=== PATIENT | female | born 1940 | race Caucasian/White ===

== ENCOUNTER 2018-02-14 13:01 | Outpatient (CLI) | payer MEDICARE, MEDICAID ==
--- NOTE | 2018-02-14 15:00 | CT ---
CT OF CHEST WITHOUT CONTRAST: Date: 02/14/18 COMPARISON: 08/22/16. HISTORY: COPD and personal history of nicotine dependence. Patient quit smoking 12 years ago. TECHNIQUE: Multiple contiguous axial images were obtained in a CT of the chest without contrast per low dose can [facility] screening protocol. Sagittal and coronal reformats were performed. FINDINGS: Emphysematous changes are seen throughout the lungs. No pulmonary nodules are identified. Scarring is seen in the right lung base. No pneumothorax or pleural effusions are seen. The heart is normal in size. Calcifications are seen in the coronary arteries and aorta. No hilar or mediastinal lymphadenopathy are seen. Degenerative changes are seen in the spine. The visualized subdiaphragmatic structures are unremarkab le. The chest wall soft tissues are unremarkable. IMPRESSION: Lung-RADS Category 1 - Negative. POS: [facility]
== END 2018-02-14 13:02 | disposition home or self-care (01) ==
LOC: CT 13:01
PROVIDERS: ATTEND Internal Medicine
DX: Z87.891 Personal history of nicotine dependence (principal)
CPT/HCPCS: G0297

== ENCOUNTER 2018-02-28 10:18 | Outpatient (CLI) | payer MEDICARE, MEDICAID | END 2018-02-28 10:19 | disposition home or self-care (01) | LOC: BICMAMMO 10:18 | PROVIDERS: ATTEND Internal Medicine | DX: Z12.31 Encounter for screening mammogram for malignant neoplasm of breast (principal); R92.1 Mammographic calcification found on diagnostic imaging of breast | CPT/HCPCS: 77063; 77067 ==

== ENCOUNTER 2018-03-09 16:24 | Inpatient (IN) | payer MEDICARE, MEDICAID ==
[~2018-03-09 16:24] MED LIST: ISOVUE-370 76%-LOCM 1 ML ONE
[2018-03-09] MEDS ORDERED: diphenhydrAMINE 50 MG/ML VIAL ONE (17:24)
[2018-03-09] MEDS ORDERED: Water For Injection,Sterile 20 ML ONE (17:24)
[2018-03-09] MEDS ORDERED: methylPREDNISolone Sod Succ/PF 125 MG/2 ML VIAL ONE (17:24)
[2018-03-09 17:43] LABS: ALT (SGPT) Less than 7 U/L (8-55); AST (SGOT) 14 U/L (5-34); Albumin 3.7 g/dL (3.4-4.8); Alkaline Phosphatase 41 U/L (40-150); Anion Gap 15 mmol/L (10-20); BUN (Urea Nitrogen) 13 mg/dL (9.8-20.1); Bilirubin, Total 0.6 mg/dL (0.2-1.2); Calc. Creatinine Clearance 0 mL/min (70-130); Calcium 8.7 mg/dL (7.8-10.44); Carbon Dioxide 23 mmol/L (23-31); Chloride 103 mmol/L (98-107); Estimated GFR-MDRD 47; Globulin 2.5 g/dL (2.4-3.5); Glucose 120 mg/dL (83-110); Magnesium 1.8 mg/dL (1.6-2.6); Potassium 3.6 mmol/L (3.5-5.1); Protein, Total 6.2 g/dL (6.0-8.3); Sodium 137 mmol/L (136-145)
[2018-03-09] MEDS ORDERED: Famotidine/PF 20 mg/2ml Vial SLOW IVP SCH (17:45)
[2018-03-09 18:06] LABS: Bilirubin Negative (Negative); Blood, Urine Negative (Negative); Clarity CLEAR (Clear); Glucose, Urine (Dipstick) Negative (Negative); Leukocyte Trace (Negative); Nitrite Negative (Negative); Protein, Urine (Dipstick) 30 mg/dL (Neg-Trace); Specific Gravity, Urine 1.015 (1.002-1.036); Urobilinogen 0.2 mg/dL (0.2-1.0); pH, Urine 6.5 (5.0-9.0)
[2018-03-09 18:09] LABS: Bacteria/HPF None Seen HPF (None Seen); Hyaline Casts/LPF 0-3 HYALINE CAST LPF (0-3 Hyaline); Pathc Cast-AUWi Flag 0.72 (0-2.49)
[2018-03-09] MEDS ORDERED: Senokot 8.6 MG TAB PO PRN (18:50)
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
[2018-03-09] MEDS ORDERED: Sodium Chloride 0.9% 1,000 ML IV SCH (19:30)
[2018-03-09] MEDS ORDERED: Azithromycin 500 MG in Sodium Chloride 0.9% 250 ML 250 ML IVPB SCH (19:30)
[2018-03-09 20:03] LABS: CKMB 0.5 ng/mL (0-6.6); Troponin I 0.019 ng/mL (< 0.028)
[2018-03-09] MEDS ORDERED: Heparin 5,000 UNITS/ML VIAL SC SCH (21:00)
[2018-03-09] MEDS: cefTRIAXone\\ROCEPHIN 1 GM in Sodium Chloride 0.9% 100 ML IVPB SCH (22:08)
[2018-03-09] MEDS: Pravastatin Sodium 40 MG TAB PO SCH (22:10)
[2018-03-09] MEDS: hydrALAZINE 25 MG TAB PO SCH (22:10)
[2018-03-09] MEDS: Levothyroxine Sodium 50 MCG TAB PO SCH (22:10)
[2018-03-09] MEDS: Apixaban 5 MG TAB PO SCH (22:10)
[2018-03-09] MEDS: Sotalol HCl 80 MG TAB PO SCH (22:11)
[2018-03-09] MEDS: Azithromycin 500 MG in Sodium Chloride 0.9% 250 ML 250 ML IVPB SCH (23:17)
[2018-03-10 00:03] LABS: CKMB 0.7 ng/mL (0-6.6)
[2018-03-10] MEDS: Acetaminophen 325 MG TAB PO PRN ×2 (01:10→23:02)
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
[2018-03-10 05:11] LABS: #Lymphocytes 0.6 thou/uL (1.20-3.40); #Monocytes 0.2 thou/uL (0.11-0.59); #Neutrophils 5.7 thou/uL (1.40-6.50); %Basophils 0.2 % (0.0-1.0); %Eosinophils 0.2 % (0.0-10.0); %Lymphocytes 8.6 % (21.0-51.0); %Monocytes 2.4 % (0.0-10.0); %Neutrophils 88.6 % (42.0-75.0); Hemoglobin 13.5 g/dL (12.0-16.0); Mean Corpuscular HGB CONC 32.5 g/dL (32.0-36.0); Mean Corpuscular Hemoglobin 32.5 pg (27.0-31.0); Mean Platelet Volume 8.6 fL (7.4-10.4); Platelet Count 122 thou/uL (130-400); RBC Distribution Width 11.4 % (11.5-14.5); Red Blood Cell (RBC) Count 4.17 mill/uL (4.20-5.40); White Blood Cell (WBC) Count 6.4 thou/uL (4.8-10.8)
[2018-03-10 05:40] LABS: Anion Gap 14 mmol/L (10-20); BUN (Urea Nitrogen) 14 mg/dL (9.8-20.1); Calc. Creatinine Clearance 41 mL/min (70-130); Calcium 8.8 mg/dL (7.8-10.44); Carbon Dioxide 22 mmol/L (23-31); Chloride 104 mmol/L (98-107); Estimated GFR-MDRD 51; Glucose 173 mg/dL (83-110); Potassium 3.1 mmol/L (3.5-5.1); Sodium 137 mmol/L (136-145)
[2018-03-10] MEDS: Aspirin 81 mg Enteric Coated Tablet PO SCH (09:40)
[2018-03-10] MEDS: Apixaban 5 MG TAB PO SCH ×2 (09:40→19:52)
[2018-03-10] MEDS: hydrALAZINE 25 MG TAB PO SCH ×3 (09:40→19:52)
[2018-03-10] MEDS: Famotidine 20 MG TAB PO SCH (09:41)
[2018-03-10] MEDS ORDERED: Potassium Chloride 20 MEQ TAB PO SCH (09:45)
[2018-03-10] MEDS: Sotalol HCl 80 MG TAB PO SCH ×2 (10:50→19:48)
--- NOTE | 2018-03-10 14:46 | PDOC.PN ---
- Subjective Encounter Start Date: 03/10/18 Encounter Start Time: 11:45 Subjective: pt up in chair family at bedside. pt is back to her baseline - Objective Resuscitation Status: Resuscitation Status FULL:Full Resuscitation Vital Signs & Weight: Vital Signs (12 hours) Temp Pulse Resp BP BP Pulse Ox Pulse Ox 03/10/18 14:33 91 16 95 03/10/18 14:19 91 154/77 H 03/10/18 10:50 91 136/75 03/10/18 10:29 91 16 95 03/10/18 09:40 80 136/75 03/10/18 08:35 100 03/10/18 08:00 98.5 F 80 16 95 03/10/18 06:54 94 L 03/10/18 06:48 80 16 94 L 03/10/18 04:20 98.3 F 93 18 112/59 L 93 L Pulse Ox 03/10/18 14:33 03/10/18 14:19 03/10/18 10:50 03/10/18 10:29 03/10/18 09:40 03/10/18 08:35 95 03/10/18 08:00 03/10/18 06:54 03/10/18 06:48 03/10/18 04:20 I&O: 03/09/18 03/10/18 03/11/18 06:59 06:59 06:59 Intake Total 1350 Balance 1350 Result Diagrams: 03/10/18 04:11 03/10/18 04:11 Phys Exam - Physical Examination HEENT: PERRLA, moist MMs, sclera anicteric, TM's clear, oral pharynx no lesions , 2+ tonsils Neck: no nodes, no JVD, supple, full ROM Respiratory: no wheezing, no rales, no rhonchi, wheezing present, clear to auscultation bilateral Cardiovascular: RRR, no significant murmur, no rub, gallop, irregular Gastrointestinal: soft, non-tender, no distention, positive bowel sounds Musculoskeletal: no edema, pulses present, edema present Dx/Plan (1) Metabolic encephalopathy Code(s): G93.41 - METABOLIC ENCEPHALOPATHY Status: Acute (2) Fever Code(s): R50.9 - FEVER, UNSPECIFIED Status: Acute (3) Pneumonia Code(s): J18.9 - PNEUMONIA, UNSPECIFIED ORGANISM Status: Acute - Plan pt feels much better today -: will continue abx -: ?viral etiology -: will await echo if normal will discharge in am * . Review of Systems - Review of Systems ENT: negative: Ear Pain, Ear Discharge, Nose Pain, Nose Discharge, Nose Congestion, Mouth Pain, Mouth Swelling, Throat Pain, Throat Swelling, Other Respiratory: negative: Cough, Dry, Shortness of Breath, Hemoptysis, SOB with Excertion, Pleuritic Pain, Sputum, Wheezing Cardiovascular: negative: chest pain, palpitations, orthopnea, paroxysmal nocturnal dyspnea, edema, light headedness, other Gastrointestinal: negative: Nausea, Vomiting, Abdominal Pain, Diarrhea, Constipation, Melena, Hematochezia, Other Genitourinary: negative: Dysuria, Frequency, Incontinence, Hematuria, Retention , Other - Medications/Allergies Allergies/Adverse Reactions: Allergies Allergy/AdvReac Type Severity Reaction Status Date / Time Iodine and Iodide Containing Allergy Severe SEVERE Verified 01/25/17 13:52 Produc ITCHING shellfish derived Allergy Severe SEVERE Verified 01/25/17 13:52 VOMITING Medications: Current Medications Acetaminophen (Tylenol) 650 mg PO Q4H PRN PRN Reason: Headache/Fever or Pain Last Admin: 03/10/18 01:10 Dose: 650 mg Albuterol/Ipratropium (Duoneb) 3 ml NEB [id number] [facility] Last Admin: 03/10/18 14:33 Dose: 3 ml Apixaban (Eliquis) 5 mg PO BID [facility] Last Admin: 03/10/18 09:40 Dose: 5 mg Aspirin (Ecotrin) 81 mg PO DAILY [facility] Last Admin: 03/10/18 09:40 Dose: 81 mg Famotidine (Pepcid) 20 mg PO DAILY [facility] Last Admin: 03/10/18 09:41 Dose: 20 mg Hydralazine HCl (Apresoline) 25 mg PO TID [facility] Last Admin: 03/10/18 14:19 Dose: 25 mg Ceftriaxone Sodium 1 gm/ (Sodium Chloride) 100 mls @ 200 mls/hr IVPB 1900 [facility] Last Admin: 03/09/18 22:08 Dose: 100 mls Sodium Chloride (Normal Saline 0.9%) 1,000 mls @ 50 mls/hr IV .Q20H [facility] Stop: 03/10/18 15:29 Last Admin: 03/09/18 20:35 Dose: Not Given Azithromycin 500 mg/ Sodium (Chloride) 250 mls @ 250 mls/hr IVPB Q24HR [facility] Last Admin: 03/09/18 23:17 Dose: 250 mls Levothyroxine Sodium (Synthroid) [address] [facility] Last Admin: 03/09/18 22:10 Dose: 50 mcg Pravastatin Sodium (Pravachol) [address] [facility] Last Admin: 03/09/18 22:10 Dose: 40 mg Senna (Senokot) 2 tab PO HSPRN PRN PRN Reason: Constipation Sotalol HCl (Betapace) 80 mg PO BID [facility] Last Admin: 03/10/18 10:50 Dose: 80 mg
[2018-03-10] MEDS: cefTRIAXone\\ROCEPHIN 1 GM in Sodium Chloride 0.9% 100 ML IVPB SCH (19:48)
[2018-03-10] MEDS: Levothyroxine Sodium 50 MCG TAB PO SCH (19:52)
[2018-03-10] MEDS: Pravastatin Sodium 40 MG TAB PO SCH (19:53)
[2018-03-10] MEDS: Azithromycin 500 MG in Sodium Chloride 0.9% 250 ML 250 ML IVPB SCH (23:02)
[2018-03-11] MEDS: Sotalol HCl 80 MG TAB PO SCH (08:08)
[2018-03-11] MEDS: Apixaban 5 MG TAB PO SCH ×2 (08:08→20:37)
[2018-03-11] MEDS: hydrALAZINE 25 MG TAB PO SCH ×3 (08:08→20:37)
[2018-03-11] MEDS: Aspirin 81 mg Enteric Coated Tablet PO SCH (08:08)
[2018-03-11] MEDS: Famotidine 20 MG TAB PO SCH (08:08)
[2018-03-11] MEDS ORDERED: Potassium Chloride 20 MEQ TAB PO SCH (09:30)
[2018-03-11] MEDS: Acetaminophen 325 MG TAB PO PRN ×2 (11:51→20:37)
[2018-03-11] MEDS ORDERED: Sodium Chloride 0.9% 10 ML ONE (18:39)
[2018-03-11] MEDS: cefTRIAXone\\ROCEPHIN 1 GM in Sodium Chloride 0.9% 100 ML IVPB SCH (18:46)
[2018-03-11] MEDS ORDERED: cefTRIAXone\\ROCEPHIN 1 GM, Admixture Fee 1 EACH in Sodium Chloride 0.9% 100 ML IVPB SCH (19:00)
[2018-03-11] MEDS: Pravastatin Sodium 40 MG TAB PO SCH (20:37)
[2018-03-11] MEDS: Levothyroxine Sodium 50 MCG TAB PO SCH (20:37)
--- NOTE | 2018-03-11 21:29 | PDOC.PN ---
- Subjective Encounter Start Date: 03/11/18 Encounter Start Time: 12:30 Subjective: pt up in bed felt weak this am - Objective Resuscitation Status: Resuscitation Status FULL:Full Resuscitation Vital Signs & Weight: Vital Signs (12 hours) Temp Pulse Resp BP BP Pulse Ox 03/11/18 20:37 93 168/98 H 03/11/18 18:35 99 12 03/11/18 16:20 98.3 F 92 19 145/78 H 96 03/11/18 15:00 89 133/88 03/11/18 14:20 70 14 03/11/18 13:00 97.9 F 03/11/18 11:45 101.2 F H 03/11/18 10:38 95 18 92 L Weight Admit Weight 129 lb Weight 129 lb I&O: 03/10/18 03/11/18 03/12/18 06:59 06:59 06:59 Intake Total 1350 940 480 Balance 1350 940 480 Result Diagrams: 03/10/18 04:11 03/10/18 04:11 Phys Exam - Physical Examination HEENT: PERRLA, moist MMs, sclera anicteric, TM's clear, oral pharynx no lesions , 2+ tonsils Neck: no nodes, no JVD, supple, full ROM Respiratory: no wheezing, no rales, no rhonchi, wheezing present, clear to auscultation bilateral Cardiovascular: RRR, no significant murmur, no rub, gallop, irregular Gastrointestinal: soft, non-tender, no distention, positive bowel sounds Dx/Plan (1) Metabolic encephalopathy Code(s): G93.41 - METABOLIC ENCEPHALOPATHY Status: Acute (2) Fever Code(s): R50.9 - FEVER, UNSPECIFIED Status: Acute (3) Pneumonia Code(s): J18.9 - PNEUMONIA, UNSPECIFIED ORGANISM Status: Acute (4) Systolic and diastolic CHF, acute Code(s): I50.41 - ACUTE COMBINED SYSTOLIC AND DIASTOLIC (CONGESTIVE) HRT FAIL Status: Acute (5) Systolic heart failure Code(s): I50.20 - UNSPECIFIED SYSTOLIC (CONGESTIVE) HEART FAILURE Status: Acute - Plan per pt's family pt was confused this am -: she also complained on having weakness all over -: will consult cardiology and transfer her to monitored floor -: She did have a temp of 101 but it is very [place] inspector her room and -: this was a axillary temp since her oral was normal per nursing * . will continue abx for now i do not think this is bacterial infection since her procalcitonin is normal. possible viral. Review of Systems - Review of Systems Constitutional: weakness Respiratory: Cough Cardiovascular: negative: chest pain, palpitations, orthopnea, paroxysmal nocturnal dyspnea, edema, light headedness, other Gastrointestinal: negative: Nausea, Vomiting, Abdominal Pain, Diarrhea, Constipation, Melena, Hematochezia, Other Genitourinary: negative: Dysuria, Frequency, Incontinence, Hematuria, Retention , Other - Medications/Allergies Allergies/Adverse Reactions: Allergies Allergy/AdvReac Type Severity Reaction Status Date / Time Iodine and Iodide Containing Allergy Severe SEVERE Verified 01/25/17 13:52 Produc ITCHING shellfish derived Allergy Severe SEVERE Verified 01/25/17 13:52 VOMITING Medications: Current Medications Acetaminophen (Tylenol) 650 mg PO Q4H PRN PRN Reason: Headache/Fever or Pain Last Admin: 03/11/18 20:37 Dose: 650 mg Albuterol/Ipratropium (Duoneb) 3 ml NEB [id number] [facility] Last Admin: 03/11/18 18:35 Dose: 3 ml Apixaban (Eliquis) 5 mg PO BID [facility] Last Admin: 03/11/18 20:37 Dose: 5 mg Aspirin (Ecotrin) 81 mg PO DAILY [facility] Last Admin: 03/11/18 08:08 Dose: 81 mg Carvedilol (Coreg) 6.25 mg PO BID[facility] Famotidine (Pepcid) 20 mg PO DAILY [facility] Last Admin: 03/11/18 08:08 Dose: 20 mg Hydralazine HCl (Apresoline) 25 mg PO TID [facility] Last Admin: 03/11/18 20:37 Dose: 25 mg Azithromycin 500 mg/ Sodium (Chloride) 250 mls @ 250 mls/hr IVPB Q24HR [facility] Last Admin: 03/10/18 23:02 Dose: 250 mls Ceftriaxone Sodium 1 gm/Miscellaneous Medication 1 each/ Sodium Chloride 100 mls @ 200 mls/hr IVPB 1900 [facility] Last Admin: 03/11/18 18:46 Dose: Not Given Levothyroxine Sodium (Synthroid) 50 mcg PO HS [facility] Last Admin: 03/11/18 20:37 Dose: 50 mcg Pravastatin Sodium (Pravachol) 40 mg PO HS [facility] Last Admin: 03/11/18 20:37 Dose: 40 mg Senna (Senokot) 2 tab PO HSPRN PRN PRN Reason: Constipation
[2018-03-12] MEDS: Acetaminophen 325 MG TAB PO PRN ×2 (00:21→21:39)
[2018-03-12] MEDS: Azithromycin 500 MG in Sodium Chloride 0.9% 250 ML 250 ML IVPB SCH (00:21)
--- NOTE | 2018-03-12 03:20 | CON ---
DATE OF CONSULTATION: 03/11/2018 HISTORY OF PRESENT ILLNESS: Lashonda Eid is a 77-year-old white female, who is followed by Dr. Aldana in the past. In 01/2017, she underwent cardioversion for atrial fibrillation/flutter and has been maintained on sotalol. She was last seen in the office on 03/07/2018. EKG on that day revealed sinus arrhythmia with heart rate of 67 per minute. Echocardiogram in 10/2017, revealed ejection fraction of 50% to 55% with probable diastolic dysfunction, mild left atrial enlargement, mild mitral regurgitation, mild mitral annular calcification, mild tricuspid regurgitation, and mild pulmonic regurgitation. The patient states that she has been having a cough for several weeks and at times productive of green colored sputum. She saw her primary physician on 01/2018 and was prescribed Augmentin. Her family found her to be more confused and not answering the phone on 03/09/2018 and she was taken to the emergency room in [place], and had a fever of 102 degrees. She was transferred here for further evaluation. She does complain of some pleuritic chest pain at times with coughing. PAST MEDICAL HISTORY: History of atrial fibrillation/flutter, hyperlipidemia, hypertension, hypothyroidism, chronic kidney disease, prediabetes, arthritis. OPERATIONS: Brain aneurysm surgery, cataract surgery, and hysterectomy. MEDICATIONS: Eliquis 5 mg b.i.d. (the patient states she has been compliant with this), sotalol 80 mg b.i.d., hydralazine 25 mg t.i.d., pravastatin 40 at bedtime, levothyroxine 50 daily, aspirin 81 daily. ALLERGIES: IODINE which causes pruritus and SHELLFISH. SOCIAL HISTORY: She states she stopped smoking 12 years ago and smoked 10-12 packs per day. She was asked about this multiple times, but continued to state she smoked 10-12 packs per day. She does not drink alcohol. FAMILY HISTORY: Unremarkable. REVIEW OF SYSTEMS: As noted above, otherwise negative. PHYSICAL EXAMINATION: VITAL SIGNS: Blood pressure 145/78, pulse of 99. HEENT: PERRL. NECK: Supple. CHEST: Clear, without rhonchi or wheezing. CARDIOVASCULAR: S1, S2 normal, without any S3 or S4. The rhythm is irregularly irregular. ABDOMEN: Normal bowel sounds without tenderness. EXTREMITIES: Revealed chronic stasis changes, but no edema. NEUROLOGIC: Grossly intact. LABORATORY AND DIAGNOSTIC DATA: EKG revealed probable atrial flutter with heart rate of 97 per minute. Echocardiogram was technically difficult with ejection fraction of 25% to 30%, mildly dilated left atrium, mildly increased left ventricular size, thickened aortic valve leaflets, and mild mitral regurgitation. Hemoglobin 13.5, hematocrit 41.7, white count 6400, platelets 122,000. Sodium 137, potassium 3.1, chloride 104, carbon dioxide 22, BUN 14, creatinine 1.04, glucose 173. TSH is normal. Troponin I is normal. CK-MB is normal. BNP 1034.1. Chest x-ray revealed no acute cardiopulmonary process. Chest CTA revealed no evidence of thromboembolism. There are emphysematous changes. There are calcifications of the coronary arteries and the aorta. IMPRESSION: 1. Probable chronic obstructive pulmonary disease exacerbation with increased sputum productive of green sputum, but no definite infiltrate seen on chest x- ray. She has been febrile up to 102 in [place] and 101.2 here. 2. Recurrence of atrial flutter. She apparently underwent cardioversion in 2016 and had maintained sinus rhythm since that time. 3. Severe left ventricular dysfunction with ejection fraction of 25% to 30%, whereas in the past her ejection fraction has been normal. 4. Former smoker. 5. Chronic obstructive pulmonary disease. 6. Hypertension. 7. Hyperlipidemia. 8. Chronic kidney disease. PLAN: She currently is on Rocephin and Zithromax and receiving DuoNebs. With her severe left ventricular dysfunction, I will discontinue the sotalol instead place her on carvedilol. Amiodarone may need to be added. Eliquis will be continued. We will follow the patient with you. ANGEL
[2018-03-12] MEDS: Apixaban 5 MG TAB PO SCH ×2 (07:59→21:10)
[2018-03-12] MEDS: Aspirin 81 mg Enteric Coated Tablet PO SCH (07:59)
[2018-03-12] MEDS: Famotidine 20 MG TAB PO SCH (07:59)
[2018-03-12] MEDS: hydrALAZINE 25 MG TAB PO SCH ×3 (07:59→21:10)
[2018-03-12] MEDS: Carvedilol 6.25 MG TAB PO SCH ×2 (07:59→17:37)
[2018-03-12] MEDS ORDERED: Furosemide 20 MG/2 ML VIAL SLOW IVP SCH (09:45)
[2018-03-12] MEDS ORDERED: Lisinopril 5 MG TAB PO SCH (09:45)
[2018-03-12] MEDS ORDERED: Lisinopril 10 MG TAB PO SCH (10:00)
--- NOTE | 2018-03-12 11:40 | PQF ---
CLINICAL DOCUMENTATION IMPROVEMENT CLARIFICATION FORM: ICD-10 Updated PLEASE DO AN ADDENDUM TO THE PROGRESS NOTE WITH ANY DOCUMENTATION UPDATES OR ADDITIONS AND CARRY THROUGH TO DC SUMMARY. THANK YOU. DATE: 03/12/18 ATTN: DR. PELAEZ Please exercise your independent, professional judgment in responding to the clarification form. Clinical indicators are provided on the bottom of this form for your review Please check appropriate box(es): [ ] Sepsis due to: (Pna, UTI, gangrenous gall bladder, etc.) Due to: [ ] Device (please specify) [ ] Implant [ ] Graft [ ] Infusion [ x ] SIRS due to non-infectious process (please specify etiology) [ ] with organ dysfunction [ ] without organ dysfunction [ ] Severe sepsis with acute organ dysfunction of: (Examples: respiratory failure, encephalopathy, acute kidney failure, other) [ ] Septic Shock [ ] Localized infection without sepsis [ ] Other diagnosis [ ] Unable to determine In addition, please specify: Present on Admission (POA): [ x] Yes [ ] No [ ] Unable to determine For continuity of documentation, please document condition throughout progress notes and discharge summary. Thank You. CLINICAL INDICATORS - SIGNS / SYMPTOMS / LABS INITIAL TEMP IN ER- 102.9 / 102.3 PULSE 108 / 141 LACTIC ACID 2.6 PER H&P CONFUSION AND LETHARGY PER H&P RISKS: PNEUMONIA TREATMENT: IV VANCOMYCIN (ER) IV FLUIDS (ER) LEVAQUIN (START 03/13) TELEMETRY MONITORING BLOOD AND URINE CULTURES (This form is maintained as a part of the permanent medical record) 2014 [employer]. All Rights Reserved BRENDAN [email or web address] Office: [phone] ANGEL
--- NOTE | 2018-03-12 15:12 | PDOC.PN ---
- Subjective Encounter Start Date: 03/12/18 Encounter Start Time: 10:00 Subjective: pt up in bed feels very sob - Objective Resuscitation Status: Resuscitation Status FULL:Full Resuscitation Vital Signs & Weight: Vital Signs (12 hours) Temp Pulse Resp BP Pulse Ox 03/12/18 11:00 97.9 F 94 18 136/97 H 94 L 03/12/18 09:44 89 14 96 03/12/18 08:01 98.7 F 108 H 18 160/95 H 93 L 03/12/18 08:00 98.7 F 70 18 03/12/18 07:59 81 03/12/18 06:30 81 12 96 03/12/18 04:00 99.0 F 88 16 125/78 92 L Weight Admit Weight 129 lb Weight 120 lb 14.4 oz I&O: 03/11/18 03/12/18 03/13/18 06:59 06:59 06:59 Intake Total 940 830 Output Total 520 Balance 940 310 Result Diagrams: 03/10/18 04:11 03/10/18 04:11 Phys Exam - Physical Examination HEENT: PERRLA, moist MMs, sclera anicteric, TM's clear, oral pharynx no lesions , 2+ tonsils Neck: no nodes, no JVD, supple, full ROM mild rhonchi to bases clears with cough Cardiovascular: RRR, no significant murmur, no rub, gallop, irregular Gastrointestinal: soft, non-tender, no distention, positive bowel sounds Musculoskeletal: no edema, pulses present, edema present Dx/Plan (1) Metabolic encephalopathy Code(s): G93.41 - METABOLIC ENCEPHALOPATHY Status: Acute (2) Fever Code(s): R50.9 - FEVER, UNSPECIFIED Status: Acute (3) Pneumonia Code(s): J18.9 - PNEUMONIA, UNSPECIFIED ORGANISM Status: Acute (4) Systolic and diastolic CHF, acute Code(s): I50.41 - ACUTE COMBINED SYSTOLIC AND DIASTOLIC (CONGESTIVE) HRT FAIL Status: Acute (5) Systolic heart failure Code(s): I50.20 - UNSPECIFIED SYSTOLIC (CONGESTIVE) HEART FAILURE Status: Acute (6) Weight loss Status: Acute - Plan pt still spiked a temp yest however this could be due to URI -: no significant pna, ua negative. pt still has a wet cough. -: will start her on low dose diuretic and heart failure meds -: spoke with her pcp who stated she was going to sent her to gi for weight -: loss. will consult gi. possible viral etiology for her worsening HF? last * . last ef was 50-55% Review of Systems - Review of Systems Constitutional: weakness ENT: negative: Ear Pain, Ear Discharge, Nose Pain, Nose Discharge, Nose Congestion, Mouth Pain, Mouth Swelling, Throat Pain, Throat Swelling, Other Respiratory: negative: Cough, Dry, Shortness of Breath, Hemoptysis, SOB with Excertion, Pleuritic Pain, Sputum, Wheezing Cardiovascular: negative: chest pain, palpitations, orthopnea, paroxysmal nocturnal dyspnea, edema, light headedness, other Gastrointestinal: negative: Nausea, Vomiting, Abdominal Pain, Diarrhea, Constipation, Melena, Hematochezia, Other - Medications/Allergies Allergies/Adverse Reactions: Allergies Allergy/AdvReac Type Severity Reaction Status Date / Time Iodine and Iodide Containing Allergy Severe SEVERE Verified 01/25/17 13:52 Produc ITCHING shellfish derived Allergy Severe SEVERE Verified 01/25/17 13:52 VOMITING Medications: Current Medications Acetaminophen (Tylenol) 650 mg PO Q4H PRN PRN Reason: Headache/Fever or Pain Last Admin: 03/12/18 00:21 Dose: 650 mg Albuterol/Ipratropium (Duoneb) 3 ml NEB Q4H PRN PRN Reason: SOB Apixaban (Eliquis) 5 mg PO BID [facility] Last Admin: 03/12/18 07:59 Dose: 5 mg Aspirin (Ecotrin) 81 mg PO DAILY [facility] Last Admin: 03/12/18 07:59 Dose: 81 mg Carvedilol (Coreg) 6.25 mg PO BID[facility] Last Admin: 03/12/18 07:59 Dose: 6.25 mg Famotidine (Pepcid) 20 mg PO DAILY [facility] Last Admin: 03/12/18 07:59 Dose: 20 mg Hydralazine HCl (Apresoline) 25 mg PO TID [facility] Last Admin: 03/12/18 07:59 Dose: 25 mg Levofloxacin (Levaquin) 500 mg PO 0600 [facility] Levothyroxine Sodium (Synthroid) 50 mcg PO HS [facility] Last Admin: 03/11/18 20:37 Dose: 50 mcg Lisinopril (Zestril) 10 mg PO BID [facility] Pravastatin Sodium (Pravachol) 40 mg PO HS [facility] Last Admin: 03/11/18 20:37 Dose: 40 mg Senna (Senokot) 2 tab PO HSPRN PRN PRN Reason: Constipation Sodium Chloride (Flush - Normal Saline) 10 ml IVF Q12HR [facility] Sodium Chloride (Flush - Normal Saline) 10 ml IVF PRN PRN PRN Reason: Saline Flush
--- NOTE | 2018-03-12 15:52 | PDOC.CTH ---
<Flory Caballero - Last Filed: 03/12/18 15:44> Cardiology Progress Note - Subjective The pt seen and examined. No overnight events. No cardiac complaints. She could follow commands; however, remains confused. - Objective Vital Signs Temp Pulse Resp BP Pulse Ox 03/12/18 15:15 94 03/12/18 11:00 97.9 F 94 18 136/97 H 94 L 03/12/18 09:44 89 14 96 03/12/18 08:01 98.7 F 108 H 18 160/95 H 93 L 03/12/18 08:00 98.7 F 70 18 03/12/18 07:59 81 03/12/18 06:30 81 12 96 03/12/18 04:00 99.0 F 88 16 125/78 92 L Admit Weight 129 lb Weight 120 lb 14.4 oz 03/11/18 03/12/18 03/13/18 06:59 06:59 06:59 Intake Total 940 830 Output Total 520 Balance 940 310 - Physical Examination Lungs: other: (coarses and diminished at bases) Heart: other: (irregular) Extremities: other: (1-2+ pitting edema) - Telemetry Telemetry Rhythm: Aflutter 80-90s - Labs Result Diagrams: 03/10/18 04:11 03/10/18 04:11 Troponin/CKMB CK-MB (CK-2) 0.7 ng/mL (0-6.6) 03/09/18 23:31 Troponin I 0.010 ng/mL (< 0.028) 03/09/18 23:31 - Assessment/Plan 1. Paroxysmal Aflutter - Rate well controlled with Coreg and Sotalol. On Eliquis 5mg BID. Cont. to monitor on tele. 2. New onset of Systolic HF - Echo on 03/11/18 showed EF 25-30% (which EF 50-55 % in 10/2017); On Coreg 3.125mg BID and Lisinopril 10mg BID; cont. to monitor 3. Low grade temp - No evidence of PNA, UA is negative. 4. HTN - stable with current med; cont monitor 5. Hyperlipidemia - on Statin 6. Hypothyroidism - On Levothyroxin 7. CKD - stable MAR reviewed Eho on 03/11/18 showed EF 25-30%, mild dilated LA, mildly LVH, mild TR. Review of Systems - Review of Systems Constitutional: reports: no symptoms reported, see HPI EENTM: reports: no symptoms reported, see HPI Respiratory: reports: no symptoms reported, see HPI Cardiac (ROS): reports: no symptoms reported, see HPI ABD/GI: reports: no symptoms reported, see HPI <Ebony Aldana Shalom - Last Filed: 03/12/18 18:42> Cardiology Progress Note - Objective Vital Signs Temp Pulse Resp BP Pulse Ox 03/12/18 15:15 98.8 F 100 20 135/99 H 98 03/12/18 11:00 97.9 F 94 18 136/97 H 94 L 03/12/18 09:44 89 14 96 03/12/18 08:01 98.7 F 108 H 18 160/95 H 93 L 03/12/18 08:00 98.7 F 70 18 03/12/18 07:59 81 Admit Weight 129 lb Weight 120 lb 14.4 oz 03/11/18 03/12/18 03/13/18 06:59 06:59 06:59 Intake Total 940 830 600 Output Total 520 Balance 940 310 600 - Labs Result Diagrams: 03/10/18 04:11 03/10/18 04:11 Troponin/CKMB CK-MB (CK-2) 0.7 ng/mL (0-6.6) 03/09/18 23:31 Troponin I 0.010 ng/mL (< 0.028) 03/09/18 23:31 - Assessment/Plan Pt. seen and eval. by me. I agree with the A/P by the MINIBUS DRIVER.Consider cardioversion
[2018-03-12] MEDS: Levothyroxine Sodium 50 MCG TAB PO SCH (21:10)
[2018-03-12] MEDS: Lisinopril 10 MG TAB PO SCH (21:10)
[2018-03-12] MEDS: Pravastatin Sodium 40 MG TAB PO SCH (21:11)
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
[2018-03-13 05:59] LABS: Anion Gap 7 mmol/L (10-20); BUN (Urea Nitrogen) 13 mg/dL (9.8-20.1); Calc. Creatinine Clearance 48 mL/min (70-130); Calcium 8.5 mg/dL (7.8-10.44); Carbon Dioxide 32 mmol/L (23-31); Chloride 98 mmol/L (98-107); Estimated GFR-MDRD 67; Glucose 105 mg/dL (83-110); Sodium 134 mmol/L (136-145)
[2018-03-13 06:28] LABS: #Lymphocytes 1.1 thou/uL (1.20-3.40); #Monocytes 0.8 thou/uL (0.11-0.59); #Neutrophils 4.2 thou/uL (1.40-6.50); %Basophils 0.1 % (0.0-1.0); %Eosinophils 0.6 % (0.0-10.0); %Monocytes 12.4 % (0.0-10.0); Hemoglobin 14.1 g/dL (12.0-16.0); Mean Corpuscular HGB CONC 32.5 g/dL (32.0-36.0); Mean Corpuscular Hemoglobin 32.1 pg (27.0-31.0); Mean Corpuscular Volume 98.9 fL (78.0-98.0); Mean Platelet Volume 7.9 fL (7.4-10.4); Platelet Count 153 thou/uL (130-400); Platelet Count 156 thou/uL (130-400); RBC Distribution Width 11.1 % (11.5-14.5); Red Blood Cell (RBC) Count 4.38 mill/uL (4.20-5.40)
[2018-03-13] MEDS: Carvedilol 6.25 MG TAB PO SCH ×2 (08:33→16:49)
[2018-03-13] MEDS: Lisinopril 10 MG TAB PO SCH ×2 (08:33→21:07)
[2018-03-13] MEDS: Famotidine 20 MG TAB PO SCH (08:33)
[2018-03-13] MEDS: Apixaban 5 MG TAB PO SCH ×2 (08:33→21:07)
[2018-03-13] MEDS: hydrALAZINE 25 MG TAB PO SCH ×3 (08:33→21:06)
--- NOTE | 2018-03-13 08:59 | PQF ---
CLINICAL DOCUMENTATION IMPROVEMENT CLARIFICATION FORM: ICD-10 Updated PLEASE DO AN ADDENDUM TO THE PROGRESS NOTE WITH ANY DOCUMENTATION UPDATES OR ADDITIONS AND CARRY THROUGH TO DC SUMMARY. THANK YOU. Date: 03/13/18 ATTN: DR. PELAEZ Please exercise your independent, professional judgment in responding to the clarification form. Clinical indicators are provided on the bottom of this form for your review Please check appropriate box(s): [ ] Protein Calorie Malnutrition: [ ] Mild [ x ] Moderate [ ] Severe [ ] Other Malnutrition (please specify) __ [ ] Underweight without malnutrition [ ] Cachexia [ ] Other diagnosis [ ] Unable to determine In addition, please specify: Present on Admission (POA): [ x ] Yes [ ] No [ ] Unable to determine CLINICAL INDICATORS - SIGNS / SYMPTOMS / LABS DIETARY NOTE 03/11: "KCAL AND G PROTEIN LIKELY NOT MET" " NUTRITION DIAGNOSIS- MALNUTRITION RELATED TO CHRONIC POOR APPETITE / EVIDENCED BY PT NOTES LOW INTAKE AND 11% WT LOSS OVER LAST 2 MONTHS" BMI 21 RISKS: H/O COPD H/O CHF H/O RENAL DISEASE ADVANCED AGE TREATMENT: DIETARY CONSULT GI CONSULT RECOMMENDATIONS FOR NUTRITIONAL SUPPLEMENTS AND CONSIDERATION OF APPETITE STIMULANT Moderate Malnutrition (in acute illness) Energy Intake: <75% of estimated energy requirement for > 7 days Weight Loss: 1-2%/1 week; 5%/ 1 month; 7.5%/3 months Other: mild body fat loss; mild muscle mass loss; mild fluid accumulation; Severe Malnutrition (in acute illness) Energy Intake: < 50% of estimated energy requirement for > 5 days Weight Loss: >1-2%/1 week; >5%/1 month; >7.5%/3 months Other: moderate body fat loss; moderate muscle mass loss; moderate- severe fluid accumulation; measurably reduced apparatus repair mechanic strength Moderate Malnutrition (in chronic illness) Energy Intake: <75% of estimated energy requirement for >1 month Weight Loss: 5%/1 month; 7.5%/3 months; 10%/6 months; 20%/1 year Other: mild body fat loss; mild muscle mass loss; mild fluid accumulation Severe Malnutrition (in chronic illness) Energy Intake: <75% of estimated energy requirement for >1 month Weight Loss: >5%/1 month; >7.5%/3 months; >10%/6 months; >20%/1 year Other: severe body fat loss; severe muscle mass loss; severe fluid accumulation ; measurably reduced apparatus repair mechanic strength (This form is maintained as a part of the permanent medical record) 2014 [employer], [place]. All Rights Reserved BRENDAN [email or web address] Office: [phone] [facility]
[2018-03-13] MEDS: Furosemide 20 MG/2 ML VIAL SLOW IVP SCH (11:32)
[2018-03-13] MEDS: Acetaminophen 325 MG TAB PO PRN (11:33)
[2018-03-13] MEDS ORDERED: Potassium Chloride 20 MEQ TAB PO SCH (12:00)
--- NOTE | 2018-03-13 12:06 | PDOC.CTH ---
<Flory Caballero - Last Filed: 03/13/18 12:02> Cardiology Progress Note - Subjective The pt seen and examined. No overnight events. No cardiac complaints. She is alerted and oriented x4 today. - Objective Vital Signs Temp Pulse Resp BP BP Pulse Ox 03/13/18 11:30 98.6 F 94 18 133/76 96 03/13/18 08:33 89 168/98 H 03/13/18 08:25 97.9 F 92 18 121/71 100 03/13/18 06:05 90 L 03/13/18 06:00 24 H 87 L 03/13/18 03:12 98.1 F 89 16 126/68 94 L 03/13/18 03:10 16 85 L 03/13/18 00:39 95 03/13/18 00:19 97.9 F 102 H 20 110/60 97 Admit Weight 129 lb Weight 119 lb 8 oz 03/12/18 03/13/18 03/14/18 06:59 06:59 06:59 Intake Total 830 1220 Output Total 520 400 Balance 310 820 - Physical Examination General/Neuro: alert & oriented x3 Neck: no JVD present Lungs: other: (diminished at bases) Heart: other: (irregular) Abdomen: soft Extremities: other: (No edema) - Telemetry Telemetry Rhythm: Aflutter 90-100s - Labs Result Diagrams: 03/13/18 04:59 03/13/18 04:59 Troponin/CKMB CK-MB (CK-2) 0.7 ng/mL (0-6.6) 03/09/18 23:31 Troponin I 0.010 ng/mL (< 0.028) 03/09/18 23:31 - Assessment/Plan 1. Paroxysmal Aflutter - Rate well controlled with Coreg and Sotalol. On Eliquis 5mg BID. Possible cardioversion. Cont. to monitor on tele. 2. New onset of Systolic HF - Echo on 03/11/18 showed EF 25-30% (which EF 50-55 % in 10/2017); On Coreg 3.125mg BID and Lisinopril 10mg BID; cont. to monitor 3. Low grade temp - No evidence of PNA, UA is negative. 4. HTN - stable with current med; cont monitor 5. Hyperlipidemia - on Statin 6. Hypothyroidism - On Levothyroxin 7. CKD - stable MAR reviewed Eho on 03/11/18 showed EF 25-30%, mild dilated LA, mildly LVH, mild TR. Review of Systems - Review of Systems Constitutional: reports: no symptoms reported EENTM: reports: no symptoms reported Respiratory: reports: no symptoms reported Cardiac (ROS): reports: no symptoms reported ABD/GI: reports: no symptoms reported : reports: no symptoms reported Musculoskeletal: reports: no symptoms reported Skin: reports: no symptoms reported <Ebony Aldana - Last Filed: 03/13/18 17:34> Cardiology Progress Note - Objective Vital Signs Temp Pulse Pulse Resp BP BP BP 03/13/18 16:30 97.7 F 103 H 18 119/70 03/13/18 13:47 97 125/82 03/13/18 11:30 98.6 F 94 18 133/76 03/13/18 08:33 89 168/98 H 03/13/18 08:25 97.9 F 92 18 121/71 03/13/18 06:05 03/13/18 06:00 24 H Pulse Ox Pulse Ox 03/13/18 16:30 92 L 03/13/18 13:47 95 03/13/18 11:30 96 03/13/18 08:33 03/13/18 08:25 100 03/13/18 06:05 90 L 03/13/18 06:00 87 L Admit Weight 129 lb Weight 119 lb 8 oz 03/12/18 03/13/18 03/14/18 06:59 06:59 06:59 Intake Total 830 1220 Output Total 520 400 Balance 310 820 - Labs Result Diagrams: 03/13/18 04:59 03/13/18 04:59 Troponin/CKMB CK-MB (CK-2) 0.7 ng/mL (0-6.6) 03/09/18 23:31 Troponin I 0.010 ng/mL (< 0.028) 03/09/18 23:31 - Assessment/Plan Pt. seen and eval. by me. I agree with the A/P by the STENOGRAPHIC COURT REPORTER. I will discuss with EP and see if cardioversion vs ablation would be better. She is feeling better each day. Chest: right basilar rales/rhonchi. CV: regular. Monitor : a-flutter.
[2018-03-13 13:00] LABS: ANA Symphony (Qualitative) Negative (Negative); dsDNA IgG Antibody 0.6 IU/mL (<10 Negative)
--- NOTE | 2018-03-13 16:26 | PDOC.PN ---
- Subjective Encounter Start Date: 03/13/18 Encounter Start Time: 12:30 Subjective: pt up in bed no complains - Objective Resuscitation Status: Resuscitation Status DNR:Do Not Resuscitate Vital Signs & Weight: Vital Signs (12 hours) Temp Pulse Resp BP BP Pulse Ox 03/13/18 11:30 98.6 F 94 18 133/76 96 03/13/18 08:33 89 168/98 H 03/13/18 08:25 97.9 F 92 18 121/71 100 03/13/18 06:05 90 L 03/13/18 06:00 24 H 87 L Weight Admit Weight 129 lb Weight 119 lb 8 oz I&O: 03/12/18 03/13/18 03/14/18 06:59 06:59 06:59 Intake Total 830 1220 Output Total 520 400 Balance 310 820 Result Diagrams: 03/13/18 04:59 03/13/18 04:59 Phys Exam - Physical Examination HEENT: PERRLA, moist MMs, sclera anicteric, TM's clear, oral pharynx no lesions , 2+ tonsils Neck: no nodes, no JVD, supple, full ROM Respiratory: no wheezing, no rales, no rhonchi, wheezing present, clear to auscultation bilateral Cardiovascular: RRR, no significant murmur, no rub, gallop, irregular Gastrointestinal: soft, non-tender, no distention, positive bowel sounds Dx/Plan (1) Metabolic encephalopathy Code(s): G93.41 - METABOLIC ENCEPHALOPATHY Status: Acute (2) Fever Code(s): R50.9 - FEVER, UNSPECIFIED Status: Acute (3) Pneumonia Code(s): J18.9 - PNEUMONIA, UNSPECIFIED ORGANISM Status: Acute (4) Systolic and diastolic CHF, acute Code(s): I50.41 - ACUTE COMBINED SYSTOLIC AND DIASTOLIC (CONGESTIVE) HRT FAIL Status: Acute (5) Systolic heart failure Code(s): I50.20 - UNSPECIFIED SYSTOLIC (CONGESTIVE) HEART FAILURE Status: Acute (6) Weight loss Status: Acute - Plan continue abx for now -: pt is afebrile -: pt feels better today. mild steroids added -: called son yest left message * . Review of Systems - Review of Systems ENT: negative: Ear Pain, Ear Discharge, Nose Pain, Nose Discharge, Nose Congestion, Mouth Pain, Mouth Swelling, Throat Pain, Throat Swelling, Other Respiratory: negative: Cough, Dry, Shortness of Breath, Hemoptysis, SOB with Excertion, Pleuritic Pain, Sputum, Wheezing Cardiovascular: negative: chest pain, palpitations, orthopnea, paroxysmal nocturnal dyspnea, edema, light headedness, other Gastrointestinal: negative: Nausea, Vomiting, Abdominal Pain, Diarrhea, Constipation, Melena, Hematochezia, Other - Medications/Allergies Allergies/Adverse Reactions: Allergies Allergy/AdvReac Type Severity Reaction Status Date / Time Iodine and Iodide Containing Allergy Severe SEVERE Verified 01/25/17 13:52 Produc ITCHING shellfish derived Allergy Severe SEVERE Verified 01/25/17 13:52 VOMITING Medications: Current Medications Acetaminophen (Tylenol) 650 mg PO Q4H PRN PRN Reason: Headache/Fever or Pain Last Admin: 03/13/18 11:33 Dose: 650 mg Albuterol/Ipratropium (Duoneb) 3 ml NEB Q4H PRN PRN Reason: SOB Apixaban (Eliquis) 5 mg PO BID [facility] Last Admin: 03/13/18 08:33 Dose: 5 mg Carvedilol (Coreg) 6.25 mg PO BID-WM [facility] Last Admin: 03/13/18 08:33 Dose: 6.25 mg Famotidine (Pepcid) 20 mg PO DAILY [facility] Last Admin: 03/13/18 08:33 Dose: 20 mg Furosemide (Lasix) 20 mg SLOW IVP 1100 [facility] Last Admin: 03/13/18 11:32 Dose: 20 mg Furosemide (Lasix) 40 mg PO DAILY-AC [facility] Stop: 03/17/18 23:59 Furosemide (Lasix) 40 mg PO 1048 [facility] Stop: 03/14/18 12:48 Hydralazine HCl (Apresoline) 25 mg PO TID [facility] Last Admin: 03/13/18 15:32 Dose: 25 mg Levofloxacin (Levaquin) 500 mg PO 0600 [facility] Last Admin: 03/13/18 06:03 Dose: 500 mg Levothyroxine Sodium (Synthroid) 50 mcg PO HS [facility] Last Admin: 03/12/18 21:10 Dose: 50 mcg Lisinopril (Zestril) 10 mg PO BID [facility] Last Admin: 03/13/18 08:33 Dose: 10 mg Pravastatin Sodium (Pravachol) 40 mg PO HS [facility] Last Admin: 03/12/18 21:11 Dose: 40 mg Senna (Senokot) 2 tab PO HSPRN PRN PRN Reason: Constipation Sodium Chloride (Flush - Normal Saline) 10 ml IVF Q12HR [facility] Last Admin: 03/13/18 08:33 Dose: 10 ml Sodium Chloride (Flush - Normal Saline) 10 ml IVF PRN PRN PRN Reason: Saline Flush Last Admin: 03/12/18 21:27 Dose: 10 ml
[2018-03-13] MEDS: Levothyroxine Sodium 50 MCG TAB PO SCH (21:08)
[2018-03-13] MEDS: Pravastatin Sodium 40 MG TAB PO SCH (21:08)
[2018-03-14] MEDS: Carvedilol 6.25 MG TAB PO SCH ×2 (08:34→17:47)
[2018-03-14] MEDS: hydrALAZINE 25 MG TAB PO SCH ×3 (08:35→21:12)
[2018-03-14] MEDS: Lisinopril 10 MG TAB PO SCH ×2 (08:35→21:12)
[2018-03-14] MEDS: Famotidine 20 MG TAB PO SCH (08:35)
[2018-03-14 09:28] LABS: Anion Gap 10 mmol/L (10-20); BUN (Urea Nitrogen) 13 mg/dL (9.8-20.1); Calc. Creatinine Clearance 48 mL/min (70-130); Calcium 8.8 mg/dL (7.8-10.44); Carbon Dioxide 32 mmol/L (23-31); Chloride 97 mmol/L (98-107); Estimated GFR-MDRD 66; Glucose 104 mg/dL (83-110); Potassium 3.3 mmol/L (3.5-5.1); Sodium 136 mmol/L (136-145)
[2018-03-14] MEDS ORDERED: Apixaban 5 MG TAB PO SCH (10:30)
[2018-03-14] MEDS ORDERED: Propofol 1,000 MG/100 ML VIAL IV ONE (10:44)
[2018-03-14] MEDS ORDERED: Furosemide 40 MG TAB PO SCH (10:48)
--- NOTE | 2018-03-14 11:28 | CON ---
DATE OF CONSULTATION: 03/14/2018 ELECTROPHYSIOLOGY CONSULTATION REPORT REFERRING PHYSICIAN: Dr. Aldana HISTORY: I am seeing Ms. Eid at our [facility] telemetry floor as an electrophysiology consult and her problems are: 1. Persistent atrial arrhythmias. A. History of persistent atrial fibrillation requiring cardioversion in 2016 and sotalol suppression, now with recurrence. B. Also, atypical atrial flutter also noted on EKGs. 2. History of preserved LV function in the past, now 25-30% on the current echocardiogram from 08/26/2018. 3. History of chronic kidney disease with some acute exacerbation on admission. 4. Possible chronic obstructive pulmonary disease exacerbation and sputum production. 5. Urinary tract infection. 6. Risk factors include hypertension and hyperlipidemia. ALLERGIES: IODINE CONTAINING PRODUCTS, SHELLFISH. MEDICATIONS AT HOME: Included omega 3 fatty acid, Meloxicam, cholecalciferol, aspirin, hydralazine, sotalol 80 mg twice a day, ranitidine, furosemide, fluvastatin, levothyroxine, cetirizine and apixaban 5 mg twice a day which the patient has been taking regularly. Currently, patient is off sotalol and continued on apixaban, also on Coreg and Lasix for diuresis. SUBJECTIVE: Ms. Eid is somewhat confused. History obtained from her friend at the bedside as well as from the notes. This lady has been admitted with some cough and green colored sputum, also some worsening confusion from [facility]. She also noted to have elevated lactic acid initially, but no definite leukocytosis noted. Some minor signs of UTI as well. She had no dizziness, loss of consciousness, no stroke-like symptoms, no bleeding issues on admission. She was treated with antibiotics for initially assumed pneumonia, although her CT of the chest was not suggestive of that. She was though continued on antibiotics, levofloxacin for assumed chronic obstructive pulmonary disease exacerbation. Her mental status, slightly improved back to baseline, still with mild confusion. She has no PND or orthopnea at this point to suggest fluid overload. No fever, chills or cough. The rest of 12-point system otherwise unremarkable. OBJECTIVE: VITAL SIGNS: Blood pressure is 131/79, heart rate 101, respirations 16, temperature 98.2 degrees Fahrenheit. GENERAL: Alert and oriented woman in no apparent distress. NECK: Supple. Jugular veins not distended. CHEST: Coarse, no fine crackles, no wheezing appreciated. CARDIAC: Heart sounds are irregularly irregular. S1, S2, variable. No murmur or gallop. ABDOMEN: Benign. Bowel sounds positive. EXTREMITIES: Lower extremities without edema, clubbing or cyanosis. DATABASE: EKG was reviewed. Initial EKG reveals a coarse atrial fibrillation/ atypical flutter on presentation at rate of 97 beats per minute. Subsequent EKGs reveals a similarly organized atypical atrial flutter type of picture. The initial QTC is measured to be 513 milliseconds, although somewhat difficult to evaluate due to the flutter waves underlying likely to be none there though. LABORATORY DATA: Sodium 136, potassium 3.3, BUN is 13, creatinine 0.84 today. The initial creatinine was 1.12. Troponin I's are 0.01 on admission on the 7th. AST, ALT is in normal range. TSH is 0.4. Also, in normal range. The chest CT was suggesting emphysema, no evidence of PE. No definite consolidation seen to suggest pneumonia. The echocardiogram reveals LV of 25-30 %, mild dilated left atrium, mild tricuspid regurgitation. Microbiology shows yeast species in the urine. No cultures noted. ASSESSMENT AND PLAN: 1. Ms. Eid is a pleasant 77-year-old woman with history of persistent atrial fibrillation, though with successful suppression of her atrial fibrillation subsequently after cardioversion in 2014 and also continue sotalol therapy and Eliquis for anticoagulation. Previous she had normal LV function, but now on this admission, she was noted to have a marked reduction in her left ventricular function. Her rates are reasonably controlled with Coreg. I was consulted by Dr. Aldana for arrhythmia management options. Regarding her atrial arrhythmias, she seems to be in a coarse atrial fibrillation/atypical atrial flutter rhythm on the most EKGs. I am not convinced this is a typical isthmus-dependent flutter based on the morphology. For this reason, I suspect a simple cavotricuspid ablation likely will not eliminate all her arrhythmias. She likely will still need a suppressive antiarrhythmic medication. The arrhythmia medication choices are somewhat limited. Sotalol would not be unreasonable to be started even despite of her poor LV function. Amiodarone would be also an option, although with her poor pulmonary function with heavy smoking in the past this could potentially put her at risk for significant pulmonary dysfunction if toxicity occurs with amiodarone. I spoke to the son, Dr. Aldana. We agreed to pursue left invasive route at this point with a cardioversion today. 2. Acute exacerbation of heart failure with LV dysfunction: She has worsened LV function hence her atrial flutter with rapid rates as well as the possible infectious component also could contribute to the worsened LV function. No high suspicion for ischemia based on normal troponins. Continue optimization of heart failure management as per Dr. Aldana. If LVEF improves, likely will not need ICD, if remains poor even long-term she might be considered for ICD therapy in the future, although we have not discussed this yet with the family. 3. Oral anticoagulation on full dose Eliquis currently. Renal function is improving and based on her age, is still under 80 years old, it is reasonable to continue full dose Eliquis. 4. History of chronic confusion ever since her intracranial bleed and intracranial shunt placement in the past as per her family, unchanged. 5. Renal insufficiency, now improving. Continue to monitor. Thank you for the consult. Discussed with Dr. Aldana, the family and the nursing staff as well. We will follow with you. ANGEL
[2018-03-14] MEDS: Furosemide 20 MG/2 ML VIAL SLOW IVP SCH (12:00)
[2018-03-14] MEDS ORDERED: PROPOFOL 200 MG/20 ML VIAL ONE (14:29)
--- NOTE | 2018-03-14 16:27 | EKG ---
Test Reason : PREOP CARDIOVERSION Blood Pressure : / mmHG Vent. Rate : 108 BPM Atrial Rate : 441 BPM P-R Int : 000 ms QRS Dur : 102 ms QT Int : 312 ms P-R-T Axes : 000 069 253 degrees QTc Int : 418 ms Atrial tachycardia with rapid ventricular response Possible Inferior infarct (cited on or before 15-JUL-2015) Abnormal ECG Confirmed by CHELSY SIMMONS ([id number]) on 03/14/2018 4:27:26 PM Referred By: AKSHAT Confirmed By:CHELSY SIMMONS
--- NOTE | 2018-03-14 16:29 | EKG ---
Test Reason : POST CARDIOVERSION-BACK IN AFIB/FLUTTER Blood Pressure : / mmHG Vent. Rate : 098 BPM Atrial Rate : 234 BPM P-R Int : 000 ms QRS Dur : 102 ms QT Int : 380 ms P-R-T Axes : 000 051 190 degrees QTc Int : 485 ms Atrial tachycardia Cannot rule out Inferior infarct (cited on or before 15-JUL-2015) Abnormal ECG Confirmed by CHELSY SIMMONS ([id number]) on 03/14/2018 4:28:46 PM Referred By: ELEONORA Confirmed By:CHELSY SIMMONS
--- NOTE | 2018-03-14 21:04 | PDOC.PN ---
- Subjective Encounter Start Date: 03/14/18 Encounter Start Time: 10:15 Subjective: pt up in bed states she feels well - Objective Resuscitation Status: Resuscitation Status DNR:Do Not Resuscitate Vital Signs & Weight: Vital Signs (12 hours) Temp Pulse Resp BP Pulse Ox 03/14/18 20:00 97.8 F 94 16 95 03/14/18 15:55 94 16 141/69 H 99 Weight Admit Weight 129 lb Weight 122 lb I&O: 03/13/18 03/14/18 03/15/18 06:59 06:59 06:59 Intake Total 1220 960 720 Output Total 400 1200 600 Balance 820 -240 120 Result Diagrams: 03/13/18 04:59 03/14/18 08:43 Phys Exam - Physical Examination HEENT: PERRLA, moist MMs, sclera anicteric, TM's clear, oral pharynx no lesions , 2+ tonsils Neck: no nodes, no JVD, supple, full ROM Respiratory: no wheezing, no rales, no rhonchi, wheezing present, clear to auscultation bilateral Cardiovascular: RRR, no significant murmur, no rub, gallop, irregular Gastrointestinal: soft, non-tender, no distention, positive bowel sounds Dx/Plan (1) Metabolic encephalopathy Code(s): G93.41 - METABOLIC ENCEPHALOPATHY Status: Acute (2) Fever Code(s): R50.9 - FEVER, UNSPECIFIED Status: Acute (3) Pneumonia Code(s): J18.9 - PNEUMONIA, UNSPECIFIED ORGANISM Status: Acute (4) Systolic and diastolic CHF, acute Code(s): I50.41 - ACUTE COMBINED SYSTOLIC AND DIASTOLIC (CONGESTIVE) HRT FAIL Status: Acute (5) Systolic heart failure Code(s): I50.20 - UNSPECIFIED SYSTOLIC (CONGESTIVE) HEART FAILURE Status: Acute (6) Weight loss Status: Acute - Plan will continue abx day 5/7. s/p cardioversion without success -: pt on HF meds. will get PT for possible placement -: pt lives alone. * . Review of Systems - Review of Systems ENT: negative: Ear Pain, Ear Discharge, Nose Pain, Nose Discharge, Nose Congestion, Mouth Pain, Mouth Swelling, Throat Pain, Throat Swelling, Other Respiratory: negative: Cough, Dry, Shortness of Breath, Hemoptysis, SOB with Excertion, Pleuritic Pain, Sputum, Wheezing Cardiovascular: negative: chest pain, palpitations, orthopnea, paroxysmal nocturnal dyspnea, edema, light headedness, other Gastrointestinal: negative: Nausea, Vomiting, Abdominal Pain, Diarrhea, Constipation, Melena, Hematochezia, Other - Medications/Allergies Allergies/Adverse Reactions: Allergies Allergy/AdvReac Type Severity Reaction Status Date / Time Iodine and Iodide Containing Allergy Severe SEVERE Verified 01/25/17 13:52 Produc ITCHING shellfish derived Allergy Severe SEVERE Verified 01/25/17 13:52 VOMITING Medications: Current Medications Acetaminophen (Tylenol) 650 mg PO Q4H PRN PRN Reason: Headache/Fever or Pain Last Admin: 03/13/18 11:33 Dose: 650 mg Albuterol/Ipratropium (Duoneb) 3 ml NEB Q4H PRN PRN Reason: SOB Apixaban (Eliquis) 5 mg PO BID [facility] Last Admin: 03/13/18 21:07 Dose: 5 mg Carvedilol (Coreg) 6.25 mg PO BID-[facility] Last Admin: 03/14/18 17:47 Dose: 6.25 mg Diltiazem HCl (Cardizem Cd) 120 mg PO DAILY [facility] Diltiazem HCl (Cardizem Cd) 180 mg PO DAILY [facility] Famotidine (Pepcid) 20 mg PO DAILY [facility] Last Admin: 03/14/18 08:35 Dose: 20 mg Furosemide (Lasix) 20 mg SLOW IVP 1100 [facility] Last Admin: 03/14/18 12:00 Dose: Not Given Furosemide (Lasix) 40 mg PO DAILY-[facility] Stop: 03/17/18 23:59 Hydralazine HCl (Apresoline) 25 mg PO TID [facility] Last Admin: 03/14/18 15:58 Dose: 25 mg Levofloxacin (Levaquin) 500 mg PO 0600 [facility] Last Admin: 03/14/18 06:43 Dose: 500 mg Levothyroxine Sodium (Synthroid) 50 mcg PO [facility] Last Admin: 03/13/18 21:08 Dose: 50 mcg Lisinopril (Zestril) 10 mg PO BID [facility] Last Admin: 03/14/18 08:35 Dose: 10 mg Pravastatin Sodium (Pravachol) 40 mg PO [facility] Last Admin: 03/13/18 21:08 Dose: 40 mg Senna (Senokot) 2 tab PO HSPRN PRN PRN Reason: Constipation Sodium Chloride (Flush - Normal Saline) 10 ml IVF Q12HR [facility] Last Admin: 03/14/18 08:35 Dose: 10 ml Sodium Chloride (Flush - Normal Saline) 10 ml IVF PRN PRN PRN Reason: Saline Flush Last Admin: 03/12/18 21:27 Dose: 10 ml
[2018-03-14] MEDS: Pravastatin Sodium 40 MG TAB PO SCH (21:11)
[2018-03-14] MEDS: Acetaminophen 325 MG TAB PO PRN (21:11)
[2018-03-14] MEDS: Apixaban 5 MG TAB PO SCH (21:12)
[2018-03-14] MEDS: Levothyroxine Sodium 50 MCG TAB PO SCH (21:12)
[2018-03-15 05:44] LABS: Hemoglobin 13.9 g/dL (12.0-16.0); Platelet Count 245 thou/uL (130-400)
[2018-03-15 05:54] LABS: Anion Gap 10 mmol/L (10-20); BUN (Urea Nitrogen) 13 mg/dL (9.8-20.1); Calc. Creatinine Clearance 45 mL/min (70-130); Calcium 8.9 mg/dL (7.8-10.44); Carbon Dioxide 31 mmol/L (23-31); Chloride 99 mmol/L (98-107); Estimated GFR-MDRD 65; Glucose 111 mg/dL (83-110); Sodium 137 mmol/L (136-145)
[2018-03-15] MEDS: hydrALAZINE 25 MG TAB PO SCH ×3 (08:23→20:18)
[2018-03-15] MEDS: Lisinopril 10 MG TAB PO SCH ×2 (08:23→20:19)
[2018-03-15] MEDS: Furosemide 40 MG TAB PO SCH (08:24)
[2018-03-15] MEDS: Carvedilol 6.25 MG TAB PO SCH ×2 (08:24→17:02)
[2018-03-15] MEDS: Famotidine 20 MG TAB PO SCH (08:24)
[2018-03-15] MEDS: Apixaban 5 MG TAB PO SCH ×2 (08:24→20:18)
[2018-03-15] MEDS ORDERED: Potassium Chloride 20 MEQ TAB PO SCH (10:45)
--- NOTE | 2018-03-15 10:53 | OP ---
PROCEDURE NOTE: Date: 03/14/18 PROCEDURE: Electrical cardioversion. INDICATION FOR PROCEDURE: This is a 77-year-old female with atrial fibrillation, somewhat atypical. She was advised to undergo electrical cardioversion of atrial flutter. PROCEDURE DETAILS: She was taken to the recovery area where she underwent short-acting propofol. We did try 3 attempts, one a 50 joules, one at 100 joules, and one at 200 joules. After each time, she maintain sinus rhythm for less than a minute on each time and then she reverted back to atrial flutter. She tolerated the procedure well. There were no difficulties or complications encountered None. ASSESSMENT AND PLAN: Atrial flutter with unsuccessful cardioversion attempts to sinus rhythm. She maintains atrial flutte r. Heart rate is in the 90s postprocedure. We will plan to start sotalol.
--- NOTE | 2018-03-15 12:17 | PDOC.CTH ---
<Bella Montoya - Last Filed: 03/15/18 12:11> Cardiology Progress Note - Subjective EP Progress note: patient seen an evaluated. No new cardiac concerns or complaints. Feeling well after failed DCCV yesterday. Denies heart racing, palpitations, chest pain/pressure, stroke like symptoms, or passing out/lightheaded. Is not very active. - Objective Vital Signs Temp Pulse Pulse Pulse Resp BP BP 03/15/18 11:30 98.0 F 76 18 03/15/18 09:20 92 88 126/69 109/71 03/15/18 07:45 98.3 F 86 18 03/15/18 07:38 98.3 F 86 18 03/15/18 04:22 97.2 F L 76 14 BP Pulse Ox 03/15/18 11:30 127/67 92 L 03/15/18 09:20 03/15/18 07:45 96 03/15/18 07:38 137/75 96 03/15/18 04:22 112/56 L 98 Admit Weight 129 lb Weight 114 lb 03/14/18 03/15/18 03/16/18 06:59 06:59 06:59 Intake Total 960 960 Output Total 1200 1200 Balance -240 -240 - Physical Examination General/Neuro: alert & oriented x3, NAD Neck: no JVD present Lungs: CTA, unlabored respirations Heart: other: (AFib) Abdomen: NT/ND, soft - Telemetry Telemetry Rhythm: Atrial fibrillation - Labs Result Diagrams: 03/15/18 05:23 03/15/18 05:23 Troponin/CKMB CK-MB (CK-2) 0.7 ng/mL (0-6.6) 03/09/18 23:31 Troponin I 0.010 ng/mL (< 0.028) 03/09/18 23:31 - Assessment/Plan 1.Persistent atrial fibrillation and atypical atrial flutter refractory to DCCV and sotalol. Failed CV yesterday and sotalol DCd in favor of rate control approach. She is a poor candidate for PVAI with her somewhat frail medical status and AAD drug therapy is limited. Amiodarone should be avoided with her chronic lung disease. Rates moderately well controlled and mostly 85-100bpm on Coreg 6.25mg BID and Cartia 180mg daily. 2. CHADS2-VASC: 5 (age, gender, HTN, HF) continue OAC, on Eliquis 5mg BID ( will reduce to 2.5mg once she is 79 or if kidney function worsens) 3. Cardiomyopathy, newly found reduced EF 25-30%, likely tachycardia mediated. Medical management by cardiology and re-evaluated 3 months, after rate control is achieved. 4. Chronic altered mental status 5. Renal insufficiency Rate control is sufficient. OK for DC by EP. Signing off. Please let us know if further assistance is needed. <Navarro Villa - Last Filed: 03/15/18 15:01> Cardiology Progress Note - Objective Vital Signs Temp Pulse Pulse Pulse Resp BP BP 03/15/18 11:30 98.0 F 76 18 03/15/18 09:20 92 88 126/69 109/71 03/15/18 07:45 98.3 F 86 18 03/15/18 07:38 98.3 F 86 18 03/15/18 04:22 97.2 F L 76 14 BP Pulse Ox 03/15/18 11:30 127/67 92 L 03/15/18 09:20 03/15/18 07:45 96 03/15/18 07:38 137/75 96 03/15/18 04:22 112/56 L 98 Admit Weight 129 lb Weight 114 lb 03/14/18 03/15/18 03/16/18 06:59 06:59 06:59 Intake Total 960 960 Output Total 1200 1200 Balance -240 -240 - Labs Result Diagrams: 03/15/18 05:23 03/15/18 05:23 Troponin/CKMB CK-MB (CK-2) 0.7 ng/mL (0-6.6) 03/09/18 23:31 Troponin I 0.010 ng/mL (< 0.028) 03/09/18 23:31 Attending Addendum - Attending Addendum Date/Time: 03/15/18 1500 I personally evaluated the patient and discussed the management with Ms Montoya. I agree with the History, Examination, Assessment and Plan documented above with any addition or exceptions noted below.
--- NOTE | 2018-03-15 13:40 | PDOC.CTH ---
<Flory Caballero - Last Filed: 03/15/18 13:33> Cardiology Progress Note - Subjective The pt seen and examined. No overnight events. No cardiac complaints. She has slightly more appetite today. She has been up to chair 2 hrs and walked with PT today. - Objective Vital Signs Temp Pulse Pulse Pulse Resp BP BP 03/15/18 11:30 98.0 F 76 18 03/15/18 09:20 92 88 126/69 109/71 03/15/18 07:45 98.3 F 86 18 03/15/18 07:38 98.3 F 86 18 03/15/18 04:22 97.2 F L 76 14 BP Pulse Ox 03/15/18 11:30 127/67 92 L 03/15/18 09:20 03/15/18 07:45 96 03/15/18 07:38 137/75 96 03/15/18 04:22 112/56 L 98 Admit Weight 129 lb Weight 114 lb 03/14/18 03/15/18 03/16/18 06:59 06:59 06:59 Intake Total 960 960 Output Total 1200 1200 Balance -240 -240 - Physical Examination General/Neuro: alert & oriented x3 Neck: no JVD present Lungs: CTA (diminished at bases) Heart: other: (irregular) Abdomen: soft Extremities: other: (No edema) - Telemetry Telemetry Rhythm: AFib/Aflutter 80-90s - Labs Result Diagrams: 03/15/18 05:23 03/15/18 05:23 Troponin/CKMB CK-MB (CK-2) 0.7 ng/mL (0-6.6) 03/09/18 23:31 Troponin I 0.010 ng/mL (< 0.028) 03/09/18 23:31 - Assessment/Plan 1. Paroxysmal Aflutter/Afib - S/p Cardioversion on 03/14/18, which she returned back to Afib/Aflutter same day. Rate well controlled with Coreg and Diltiazem. On Eliquis 5 mg BID. Cont. to monitor on tele. 2. New onset of Systolic HF - Echo on 03/11/18 showed EF 25-30% (which EF 50-55 % in 10/2017); On Coreg 3.125 mg BID and Lisinopril 10mg BID; cont. to monitor 3. Low grade temp - No evidence of PNA, UA is negative. 4. HTN - stable with current med; cont monitor 5. Hyperlipidemia - on Statin 6. Hypothyroidism - On Levothyroxin 7. CKD - stable MAR reviewed * Eho on 03/11/18 showed EF 25-30%, mild dilated LA, mildly LVH, mild TR. * Per EP, ok to d/c. Review of Systems - Review of Systems Constitutional: reports: weakness EENTM: reports: no symptoms reported Respiratory: reports: no symptoms reported Cardiac (ROS): reports: no symptoms reported ABD/GI: reports: poor appetite : reports: no symptoms reported <Ebony Aldana - Last Filed: 03/15/18 21:08> Cardiology Progress Note - Objective Vital Signs Temp Pulse Pulse Pulse Resp BP BP 03/15/18 19:00 98.6 F 86 14 03/15/18 17:00 03/15/18 15:57 85 17 03/15/18 11:30 98.0 F 76 18 03/15/18 09:20 92 88 126/69 109/71 BP Pulse Ox 03/15/18 19:00 124/67 93 L 03/15/18 17:00 92 L 03/15/18 15:57 138/67 95 03/15/18 11:30 127/67 92 L 03/15/18 09:20 Admit Weight 129 lb Weight 114 lb 03/14/18 03/15/18 03/16/18 06:59 06:59 06:59 Intake Total 960 960 960 Output Total 1200 1200 600 Balance -240 -240 360 - Labs Result Diagrams: 03/15/18 05:23 03/15/18 05:23 Troponin/CKMB CK-MB (CK-2) 0.7 ng/mL (0-6.6) 03/09/18 23:31 Troponin I 0.010 ng/mL (< 0.028) 03/09/18 23:31 - Assessment/Plan Pt. was seen and eval. by me. I agree with the A/P by the MANAGER FLEET Federico. I appreciate the assistance from EP. Plan for NH placement at least temporarily and when more stable then consider repeat attempt to cardiovert. Plan to switch to Sotolol 5-7 days after stopping antibiotics. This may be more likely to maintyain sinus rhythm after repeat cardioversion.
--- NOTE | 2018-03-15 17:20 | PDOC.PN ---
- Subjective Encounter Start Date: 03/15/18 Encounter Start Time: 13:00 Patient is seen today, alert and oriented. No other Concerns noted. Discussed with family at bedside. Pt admitted with CHF/ Afib with RVR. - Objective Resuscitation Status: Resuscitation Status DNR:Do Not Resuscitate MAR Reviewed: Yes Vital Signs & Weight: Vital Signs (12 hours) Temp Pulse Pulse Pulse Resp BP BP 03/15/18 17:00 03/15/18 15:57 85 17 03/15/18 11:30 98.0 F 76 18 03/15/18 09:20 92 88 126/69 109/71 03/15/18 07:45 98.3 F 86 18 03/15/18 07:38 98.3 F 86 18 BP Pulse Ox 03/15/18 17:00 92 L 03/15/18 15:57 138/67 95 03/15/18 11:30 127/67 92 L 03/15/18 09:20 03/15/18 07:45 96 03/15/18 07:38 137/75 96 Weight Admit Weight 129 lb Weight 114 lb I&O: 03/14/18 03/15/18 03/16/18 06:59 06:59 06:59 Intake Total 960 960 Output Total 1200 1200 Balance -240 -240 Result Diagrams: 03/15/18 05:23 03/15/18 05:23 Radiology Reviewed by me: Yes Phys Exam - Physical Examination HEENT: PERRLA, moist MMs Neck: no nodes, no JVD Respiratory: no wheezing, no rales Cardiovascular: RRR, no significant murmur Gastrointestinal: soft, non-tender Musculoskeletal: no edema, pulses present Neurological: non-focal, normal sensation Lymphatic: no nodes Dx/Plan (1) Atrial fibrillation with RVR Code(s): I48.91 - UNSPECIFIED ATRIAL FIBRILLATION Status: Acute Comment: PT on Po cardizem, Will cotninue with Cardiology recommedations, pt has Low EF. (2) Metabolic encephalopathy Code(s): G93.41 - METABOLIC ENCEPHALOPATHY Status: Resolved (3) Pneumonia Code(s): J18.9 - PNEUMONIA, UNSPECIFIED ORGANISM Status: Acute Comment: COntinue with IV Abx, 6/7 days. COntiue Nebs. No fever. (4) Systolic and diastolic CHF, acute Code(s): I50.41 - ACUTE COMBINED SYSTOLIC AND DIASTOLIC (CONGESTIVE) HRT FAIL Status: Acute Comment: COntinue with IV lasix, to keep Volume status under control, to optimize for her Low EF. Plans for Life vest per cardiology. - Plan cont current plan of care, plan discussed w/ family, continue antibiotics, PT/OT , addiction social worker, respiratory therapy, incentive spirometry, out of bed/ ambulate, DVT proph w/lovenox * . Review of Systems - Review of Systems Eyes: negative: Pain, Vision Change, Conjunctivae Inflammation, Eyelid Inflammation, Redness, Other ENT: negative: Ear Pain, Ear Discharge, Nose Pain, Nose Discharge, Nose Congestion, Mouth Pain, Mouth Swelling, Throat Pain, Throat Swelling, Other Respiratory: Shortness of Breath. negative: Cough, Dry, Hemoptysis, SOB with Excertion, Pleuritic Pain, Sputum, Wheezing Cardiovascular: negative: chest pain, palpitations, orthopnea, paroxysmal nocturnal dyspnea, edema, light headedness, other Gastrointestinal: negative: Nausea, Vomiting, Abdominal Pain, Diarrhea, Constipation, Melena, Hematochezia, Other Genitourinary: negative: Dysuria, Frequency, Incontinence, Hematuria, Retention , Other Musculoskeletal: negative: Neck Pain, Shoulder Pain, Arm Pain, Back Pain, Hand Pain, Leg Pain, Foot Pain, Other Skin: negative: Rash, Lesions, Markie, Bruising, Other - Medications/Allergies Allergies/Adverse Reactions: Allergies Allergy/AdvReac Type Severity Reaction Status Date / Time Iodine and Iodide Containing Allergy Severe SEVERE Verified 01/25/17 13:52 Produc ITCHING shellfish derived Allergy Severe SEVERE Verified 01/25/17 13:52 VOMITING Medications: Current Medications Acetaminophen (Tylenol) 650 mg PO Q4H PRN PRN Reason: Headache/Fever or Pain Last Admin: 03/14/18 21:11 Dose: 650 mg Albuterol/Ipratropium (Duoneb) 3 ml NEB Q4H PRN PRN Reason: SOB Apixaban (Eliquis) 5 mg PO BID [facility] Last Admin: 03/15/18 08:24 Dose: 5 mg Carvedilol (Coreg) 6.25 mg PO BID-[facility] Last Admin: 03/15/18 17:02 Dose: 6.25 mg Diltiazem HCl (Cardizem Cd) 180 mg PO DAILY [facility] Last Admin: 03/15/18 08:24 Dose: 180 mg Famotidine (Pepcid) 20 mg PO DAILY [facility] Last Admin: 03/15/18 08:24 Dose: 20 mg Furosemide (Lasix) 40 mg PO DAILY-AC [facility] Stop: 03/17/18 23:59 Last Admin: 03/15/18 08:24 Dose: 40 mg Hydralazine HCl (Apresoline) 25 mg PO TID [facility] Last Admin: 03/15/18 16:00 Dose: 25 mg Levofloxacin (Levaquin) 500 mg PO 0600 [facility] Last Admin: 03/15/18 06:17 Dose: 500 mg Levothyroxine Sodium (Synthroid) 50 mcg PO [facility] Last Admin: 03/14/18 21:12 Dose: 50 mcg Lisinopril (Zestril) 10 mg PO BID [facility] Last Admin: 03/15/18 08:23 Dose: 10 mg Potassium Chloride (K-Dur) 20 meq PO QAM-[facility] Pravastatin Sodium (Pravachol) 40 mg PO [facility] Last Admin: 03/14/18 21:11 Dose: 40 mg Senna (Senokot) 2 tab PO HSPRN PRN PRN Reason: Constipation Sodium Chloride (Flush - Normal Saline) 10 ml IVF Q12HR [facility] Last Admin: 03/15/18 08:25 Dose: 10 ml Sodium Chloride (Flush - Normal Saline) 10 ml IVF PRN PRN PRN Reason: Saline Flush Last Admin: 03/12/18 21:27 Dose: 10 ml
[2018-03-15] MEDS: Acetaminophen 325 MG TAB PO PRN (20:19)
[2018-03-15] MEDS: Pravastatin Sodium 40 MG TAB PO SCH (20:19)
[2018-03-15] MEDS: Levothyroxine Sodium 50 MCG TAB PO SCH (20:19)
[2018-03-16] MEDS: hydrALAZINE 25 MG TAB PO SCH ×3 (08:19→20:39)
[2018-03-16] MEDS: Potassium Chloride 20 MEQ TAB PO SCH (08:19)
[2018-03-16] MEDS: Carvedilol 6.25 MG TAB PO SCH ×2 (08:19→16:43)
[2018-03-16] MEDS: Furosemide 40 MG TAB PO SCH (08:19)
[2018-03-16] MEDS: Apixaban 5 MG TAB PO SCH ×2 (08:20→20:40)
[2018-03-16] MEDS: Lisinopril 10 MG TAB PO SCH ×2 (08:20→20:41)
[2018-03-16] MEDS: Acetaminophen 325 MG TAB PO PRN ×3 (08:20→22:28)
[2018-03-16] MEDS: Famotidine 20 MG TAB PO SCH (08:20)
--- NOTE | 2018-03-16 13:12 | PDOC.CTH ---
<Flory Caballero - Last Filed: 03/16/18 16:43> Cardiology Progress Note - Subjective The pt seen and examined. No overnight events. No cardiac complaints. She stated she have slightly more appetite today. - Objective Vital Signs Temp Pulse Pulse Pulse Resp BP BP 03/16/18 11:15 97.7 F 70 18 03/16/18 10:31 86 74 107/55 L 99/55 L 03/16/18 08:19 73 03/16/18 08:15 97.9 F 85 18 03/16/18 04:00 98.3 F 73 20 BP Pulse Ox 03/16/18 11:15 98/55 L 94 L 03/16/18 10:31 03/16/18 08:19 03/16/18 08:15 137/73 94 L 03/16/18 04:00 122/63 97 Admit Weight 129 lb Weight 111 lb 12.8 oz 03/15/18 03/16/18 03/17/18 06:59 06:59 06:59 Intake Total 960 1360 Output Total 1200 1600 Balance -240 -240 - Physical Examination General/Neuro: alert & oriented x3 Neck: no JVD present Lungs: CTA Heart: RRR Abdomen: soft Extremities: other: (no edema) - Telemetry Telemetry Rhythm: SR - Labs Result Diagrams: 03/15/18 05:23 03/15/18 05:23 Troponin/CKMB CK-MB (CK-2) 0.7 ng/mL (0-6.6) 03/09/18 23:31 Troponin I 0.010 ng/mL (< 0.028) 03/09/18 23:31 - Assessment/Plan 1. Paroxysmal Aflutter/Afib - S/p Cardioversion on 03/14/18, which she returned back to Afib/Aflutter same day. She converted back to SR around 1000 on with Coreg and Diltiazem. On Eliquis 5 mg BID. Cont. to monitor on tele. 2. New onset of Systolic HF - Echo on 03/11/18 showed EF 25-30% (which EF 50-55 % in 10/2017); On Coreg 3.125 mg BID and Lisinopril 10mg BID; cont. to monitor 3. Low grade temp - No evidence of PNA, UA is negative. 4. HTN - stable with current med; cont monitor 5. Hyperlipidemia - on Statin 6. Hypothyroidism - On Levothyroxin 7. CKD - stable MAR reviewed * Eho on 03/11/18 showed EF 25-30%, mild dilated LA, mildly LVH, mild TR. * From Cardiac standpoint, the pt is stable to tx to Rehab. * Plan to switch to Sotolol 5-7 days after stopping antibiotics. <addendum> * Coreg 6.25mg @ 1700 dose will be on hold due to SBP <100. Decrease Coreg to 3.125mg BID Review of Systems - Review of Systems Constitutional: reports: weakness EENTM: reports: no symptoms reported Respiratory: reports: no symptoms reported Cardiac (ROS): reports: no symptoms reported ABD/GI: reports: no symptoms reported <Ebony Aldana - Last Filed: 03/17/18 21:47> Cardiology Progress Note - Objective Vital Signs Temp Pulse Resp BP BP Pulse Ox 03/17/18 20:35 64 03/17/18 20:33 64 118/57 L 03/17/18 17:00 134/61 03/17/18 15:31 64 03/17/18 15:30 97.3 F L 66 18 123/58 L 97 03/17/18 11:40 97.5 F L 64 18 114/58 L 97 Admit Weight 129 lb Weight 112 lb 03/16/18 03/17/18 03/18/18 06:59 06:59 06:59 Intake Total 1360 900 720 Output Total 1600 1500 1300 Balance -240 600 580 - Labs Result Diagrams: 03/17/18 05:05 03/17/18 05:05 Troponin/CKMB CK-MB (CK-2) 0.7 ng/mL (0-6.6) 03/09/18 23:31 Troponin I 0.010 ng/mL (< 0.028) 03/09/18 23:31 - Assessment/Plan Pt. was seen and eval. by me. I agree with the A/P by the LUX Caballero.
--- NOTE | 2018-03-16 15:33 | PDOC.PN ---
- Subjective Encounter Start Date: 03/16/18 Encounter Start Time: 11:00 Patien is seen today, very drowsy and sleepy. No family memeber at bedside, pt is on IV duiruresis for chf/ Afib. - Objective Resuscitation Status: Resuscitation Status DNR:Do Not Resuscitate MAR Reviewed: Yes Vital Signs & Weight: Vital Signs (12 hours) Temp Pulse Pulse Pulse Resp BP BP 03/16/18 14:35 70 98/50 L 03/16/18 11:15 97.7 F 70 18 03/16/18 10:31 86 74 107/55 L 03/16/18 08:19 73 03/16/18 08:15 97.9 F 85 18 03/16/18 04:00 98.3 F 73 20 BP BP Pulse Ox 03/16/18 14:35 03/16/18 11:15 98/55 L 94 L 03/16/18 10:31 99/55 L 03/16/18 08:19 03/16/18 08:15 137/73 94 L 03/16/18 04:00 122/63 97 Weight Admit Weight 129 lb Weight 111 lb 12.8 oz I&O: 03/15/18 03/16/18 03/17/18 06:59 06:59 06:59 Intake Total 960 1360 Output Total 1200 1600 Balance -240 -240 Result Diagrams: 03/15/18 05:23 03/15/18 05:23 Radiology Reviewed by me: Yes Phys Exam - Physical Examination HEENT: PERRLA, moist MMs Neck: no nodes, no JVD Respiratory: no wheezing, no rales Cardiovascular: no significant murmur, irregular Gastrointestinal: soft, non-tender Musculoskeletal: no edema, pulses present Neurological: non-focal, normal sensation Lymphatic: no nodes Dx/Plan (1) Atrial fibrillation with RVR Code(s): I48.91 - UNSPECIFIED ATRIAL FIBRILLATION Status: Acute Comment: PT on Po cardizem, Will cotninue with Cardiology recommedations, pt has Low EF. (2) Metabolic encephalopathy Code(s): G93.41 - METABOLIC ENCEPHALOPATHY Status: Resolved Comment: Improved/ (3) Pneumonia Code(s): J18.9 - PNEUMONIA, UNSPECIFIED ORGANISM Status: Acute Comment: COntinue with IV Abx, 7/7 days. COntiue Nebs. No fever. d/C aBX . (4) Systolic and diastolic CHF, acute Code(s): I50.41 - ACUTE COMBINED SYSTOLIC AND DIASTOLIC (CONGESTIVE) HRT FAIL Status: Acute Comment: COntinue with IV lasix, to keep Volume status under control, to optimize for her Low EF. Plans for Life vest per cardiology. - Plan cont current plan of care, hansen catheter, PT/OT, social media senior associate, incentive spirometry, out of bed/ambulate, DVT proph w/lovenox * . Review of Systems - Review of Systems Eyes: negative: Pain, Vision Change, Conjunctivae Inflammation, Eyelid Inflammation, Redness, Other Respiratory: Cough, Shortness of Breath Cardiovascular: negative: chest pain, palpitations, orthopnea, paroxysmal nocturnal dyspnea, edema, light headedness, other Gastrointestinal: negative: Nausea, Vomiting, Abdominal Pain, Diarrhea, Constipation, Melena, Hematochezia, Other Genitourinary: negative: Dysuria, Frequency, Incontinence, Hematuria, Retention , Other Musculoskeletal: negative: Neck Pain, Shoulder Pain, Arm Pain, Back Pain, Hand Pain, Leg Pain, Foot Pain, Other - Medications/Allergies Allergies/Adverse Reactions: Allergies Allergy/AdvReac Type Severity Reaction Status Date / Time Iodine and Iodide Containing Allergy Severe SEVERE Verified 01/25/17 13:52 Produc ITCHING shellfish derived Allergy Severe SEVERE Verified 01/25/17 13:52 VOMITING Medications: Current Medications Acetaminophen (Tylenol) 650 mg PO Q4H PRN PRN Reason: Headache/Fever or Pain Last Admin: 03/16/18 14:33 Dose: 650 mg Albuterol/Ipratropium (Duoneb) 3 ml NEB Q4H PRN PRN Reason: SOB Apixaban (Eliquis) 5 mg PO BID [facility] Last Admin: 03/16/18 08:20 Dose: 5 mg Carvedilol (Coreg) 6.25 mg PO BID-[facility] Last Admin: 03/16/18 08:19 Dose: 6.25 mg Diltiazem HCl (Cardizem Cd) 180 mg PO DAILY [facility] Last Admin: 03/16/18 08:19 Dose: 180 mg Famotidine (Pepcid) 20 mg PO DAILY [facility] Last Admin: 03/16/18 08:20 Dose: 20 mg Furosemide (Lasix) 40 mg PO DAILY-AC [facility] Stop: 03/17/18 23:59 Last Admin: 03/16/18 08:19 Dose: 40 mg Hydralazine HCl (Apresoline) 25 mg PO TID [facility] Last Admin: 03/16/18 14:35 Dose: Not Given Levofloxacin (Levaquin) 500 mg PO 0600 [facility] Last Admin: 03/16/18 05:56 Dose: 500 mg Levothyroxine Sodium (Synthroid) 50 mcg PO HS [facility] Last Admin: 03/15/18 20:19 Dose: 50 mcg Lisinopril (Zestril) 10 mg PO BID [facility] Last Admin: 03/16/18 08:20 Dose: 10 mg Potassium Chloride (K-Dur) 20 meq PO QAM-[facility] Last Admin: 03/16/18 08:19 Dose: 20 meq Pravastatin Sodium (Pravachol) 40 mg PO [facility] Last Admin: 03/15/18 20:19 Dose: 40 mg Senna (Senokot) 2 tab PO HSPRN PRN PRN Reason: Constipation Sodium Chloride (Flush - Normal Saline) 10 ml IVF Q12HR [facility] Last Admin: 03/16/18 08:25 Dose: 10 ml Sodium Chloride (Flush - Normal Saline) 10 ml IVF PRN PRN PRN Reason: Saline Flush Last Admin: 03/12/18 21:27 Dose: 10 ml
[2018-03-16] MEDS: Levothyroxine Sodium 50 MCG TAB PO SCH (20:40)
[2018-03-16] MEDS: Pravastatin Sodium 40 MG TAB PO SCH (20:40)
[2018-03-17 05:37] LABS: Hemoglobin 12.4 g/dL (12.0-16.0); Platelet Count 295 thou/uL (130-400)
[2018-03-17] MEDS: Acetaminophen 325 MG TAB PO PRN ×2 (06:03→20:37)
[2018-03-17] MEDS: Furosemide 40 MG TAB PO SCH (08:29)
[2018-03-17] MEDS: Apixaban 5 MG TAB PO SCH ×2 (08:29→20:33)
[2018-03-17] MEDS: Potassium Chloride 20 MEQ TAB PO SCH (08:29)
[2018-03-17] MEDS: hydrALAZINE 25 MG TAB PO SCH ×3 (08:29→20:33)
[2018-03-17] MEDS: Famotidine 20 MG TAB PO SCH (08:30)
[2018-03-17] MEDS: Lisinopril 5 MG TAB PO SCH ×2 (08:30→20:35)
[2018-03-17] MEDS ORDERED: Carvedilol 3.125 MG TAB PO SCH (09:00)
--- NOTE | 2018-03-17 14:15 | PDOC.CTH ---
<Flory Caballero - Last Filed: 03/17/18 14:42> Cardiology Progress Note - Subjective The pt seen and examined. No overnight events. She complains of headache. - Objective Vital Signs Temp Pulse Resp BP Pulse Ox 03/17/18 11:40 97.5 F L 64 18 114/58 L 97 03/17/18 08:30 66 03/17/18 08:29 66 03/17/18 08:25 97.7 F 63 18 118/58 L 95 03/17/18 04:00 97.8 F 66 14 110/57 L 92 L Admit Weight 129 lb Weight 112 lb 03/16/18 03/17/18 03/18/18 06:59 06:59 06:59 Intake Total 1360 900 Output Total 1600 1500 Balance -240 -600 - Physical Examination General/Neuro: alert & oriented x3 Neck: no JVD present Lungs: CTA Heart: RRR Abdomen: soft Extremities: other: (No edema) - Telemetry Telemetry Rhythm: SR, PACs, HR 68 - Labs Result Diagrams: 03/17/18 05:05 03/17/18 05:05 Troponin/CKMB CK-MB (CK-2) 0.7 ng/mL (0-6.6) 03/09/18 23:31 Troponin I 0.010 ng/mL (< 0.028) 03/09/18 23:31 - Assessment/Plan 1. Paroxysmal Aflutter/Afib - S/p Cardioversion on 03/14/18, which she returned back to Afib/Aflutter same day. She converted back to SR around 1000 on with Coreg and Diltiazem. On Eliquis 5 mg BID. Cont. to monitor on tele. 2. New onset of Systolic HF - Echo on 03/11/18 showed EF 25-30% (which EF 50-55 % in 10/2017); On Coreg 3.125 mg BID and Lisinopril 10mg BID; cont. to monitor 3. Low grade temp - No evidence of PNA, UA is negative. 4. HTN - stable with current med; cont monitor 5. Hyperlipidemia - on Statin 6. Hypothyroidism - On Levothyroxin 7. CKD - stable MAR reviewed * Eho on 03/11/18 showed EF 25-30%, mild dilated LA, mildly LVH, mild TR. * From Cardiac standpoint, the pt is stable to tx to Rehab. * Plan to switch to Sotolol 5-7 days after stopping antibiotics. <addendum> * Coreg 6.25mg @ 1700 dose will be on hold due to SBP <100. Decrease Coreg to 3.125mg BID * No lifeVest due to code status-DNR Review of Systems - Review of Systems Constitutional: reports: no symptoms reported EENTM: reports: no symptoms reported Respiratory: reports: no symptoms reported Cardiac (ROS): reports: no symptoms reported ABD/GI: reports: no symptoms reported : reports: no symptoms reported Musculoskeletal: reports: no symptoms reported <Ebony Aldana - Last Filed: 03/17/18 21:48> Cardiology Progress Note - Objective Vital Signs Temp Pulse Resp BP BP Pulse Ox 03/17/18 20:35 64 03/17/18 20:33 64 118/57 L 03/17/18 17:00 134/61 03/17/18 15:31 64 03/17/18 15:30 97.3 F L 66 18 123/58 L 97 03/17/18 11:40 97.5 F L 64 18 114/58 L 97 Admit Weight 129 lb Weight 112 lb 03/16/18 03/17/18 03/18/18 06:59 06:59 06:59 Intake Total 1360 900 720 Output Total 1600 1500 1300 Balance -240 -600 -580 - Labs Result Diagrams: 03/17/18 05:05 03/17/18 05:05 Troponin/CKMB CK-MB (CK-2) 0.7 ng/mL (0-6.6) 03/09/18 23:31 Troponin I 0.010 ng/mL (< 0.028) 03/09/18 23:31 - Assessment/Plan Pt. was seen and eval. by me. I agree with the A/P by the BUSINESS SUPPORT COORDINATOR Federico.
--- NOTE | 2018-03-17 16:28 | PDOC.PN ---
- Subjective Encounter Start Date: 03/17/18 Encounter Start Time: 16:25 Subjective: f/u for systolic CHF and PNA on current Lasix and completing 7 days -: of Levaquin. Cardiology recommending rate control measures for A-fib -: and OAC for d/c. - Objective Resuscitation Status: Resuscitation Status DNR:Do Not Resuscitate MAR Reviewed: Yes Vital Signs & Weight: Vital Signs (12 hours) Temp Pulse Resp BP Pulse Ox 03/17/18 15:31 64 03/17/18 11:40 97.5 F L 64 18 114/58 L 97 03/17/18 08:30 66 03/17/18 08:29 66 03/17/18 08:25 97.7 F 63 18 118/58 L 95 Weight Admit Weight 129 lb Weight 112 lb I&O: 03/16/18 03/17/18 03/18/18 06:59 06:59 06:59 Intake Total 1360 900 Output Total 1600 1500 Balance -240 -600 Result Diagrams: 03/17/18 05:05 03/17/18 05:05 EKG Reviewed by me: Yes (Tele - SR converted on 03/16) Phys Exam - Physical Examination Constitutional: NAD HEENT: PERRLA, sclera anicteric, oral pharynx no lesions Neck: no nodes, no JVD, supple, full ROM diminished in bases Respiratory: no wheezing Cardiovascular: RRR, no significant murmur, no rub, gallop Gastrointestinal: soft, non-tender, no distention, positive bowel sounds Musculoskeletal: no edema, pulses present Neurological: non-focal, normal sensation, moves all 4 limbs Skin: no rash, normal turgor, cap refill <2 seconds Dx/Plan (1) Systolic heart failure Code(s): I50.20 - UNSPECIFIED SYSTOLIC (CONGESTIVE) HEART FAILURE Status: Acute Qualifiers: Heart failure chronicity: acute Qualified Code(s): I50.21 - Acute systolic (congestive) heart failure Comment: EF 25-30%, continue Lasix 40mg daily, Coreg, DEBBIE-i, no LifeVest or AICD per Cardiology (2) Atrial fibrillation with RVR Code(s): I48.91 - UNSPECIFIED ATRIAL FIBRILLATION Status: Acute Comment: Converted to SR on 03/16, continue Cardizem and Coreg, Eliquis (3) Pneumonia Code(s): J18.9 - PNEUMONIA, UNSPECIFIED ORGANISM Status: Acute Comment: Completed course of abx with Levaquin (4) Metabolic encephalopathy Code(s): G93.41 - METABOLIC ENCEPHALOPATHY Status: Acute Comment: Multifactorial, improving (5) Hypothyroid Code(s): E03.9 - HYPOTHYROIDISM, UNSPECIFIED Status: Chronic Comment: Continue Levothyroxine 50mcg daily - Plan PT/OT, 7th grade social studies teacher, DVT proph w/SCDs Stable overall -: Continue Coreg and Cardizem for rate control -: Eliquis for OAC -: PT for mobilization/ambulation -: AM lab: H/H, Creatinine * .
[2018-03-17] MEDS: Carvedilol 3.125 MG TAB PO SCH (17:01)
[2018-03-17] MEDS: Pravastatin Sodium 40 MG TAB PO SCH (20:35)
[2018-03-17] MEDS: Levothyroxine Sodium 50 MCG TAB PO SCH (20:36)
[2018-03-18] MEDS: Acetaminophen 325 MG TAB PO PRN ×2 (05:21→23:48)
[2018-03-18] MEDS: Carvedilol 3.125 MG TAB PO SCH ×2 (08:24→17:34)
[2018-03-18] MEDS: Potassium Chloride 20 MEQ TAB PO SCH (08:24)
[2018-03-18] MEDS: Apixaban 5 MG TAB PO SCH ×2 (08:24→21:14)
[2018-03-18] MEDS: hydrALAZINE 25 MG TAB PO SCH ×3 (08:25→21:15)
[2018-03-18] MEDS: Famotidine 20 MG TAB PO SCH (08:25)
[2018-03-18] MEDS: Lisinopril 5 MG TAB PO SCH ×2 (08:25→21:15)
--- NOTE | 2018-03-18 17:16 | PDOC.CTH ---
Cardiology Progress Note - Subjective The pt seen and examined. No overnight events. No cardiac complaints. No longer having headache. - Objective Vital Signs Temp Pulse Pulse Resp BP BP BP 03/18/18 15:53 98.3 F 90 18 03/18/18 15:51 60 115/64 03/18/18 13:10 60 112/53 L 03/18/18 11:36 97.4 F L 60 14 03/18/18 08:25 67 03/18/18 08:19 97.9 F 67 16 117/55 L BP Pulse Ox Pulse Ox 03/18/18 15:53 115/64 96 03/18/18 15:51 03/18/18 13:10 93 L 03/18/18 11:36 102/55 L 92 L 03/18/18 08:25 03/18/18 08:19 93 L Admit Weight 129 lb Weight 112 lb 6.4 oz 03/17/18 03/18/18 03/19/18 06:59 06:59 06:59 Intake Total 900 1120 Output Total 1500 1600 Balance -600 -480 - Physical Examination General/Neuro: alert & oriented x3 Neck: no JVD present Lungs: CTA Heart: RRR Abdomen: soft Extremities: other: (SR) - Telemetry Telemetry Rhythm: No edema - Labs Result Diagrams: 03/17/18 05:05 03/17/18 05:05 Troponin/CKMB CK-MB (CK-2) 0.7 ng/mL (0-6.6) 03/09/18 23:31 Troponin I 0.010 ng/mL (< 0.028) 03/09/18 23:31 - Assessment/Plan 1. Paroxysmal Aflutter/Afib - S/p Cardioversion on 03/14/18, which she returned back to Afib/Aflutter same day. She converted back to SR around 1000 on with Coreg and Diltiazem. On Eliquis 5 mg BID. Cont. to monitor on tele. 2. New onset of Systolic HF - Echo on 03/11/18 showed EF 25-30% (which EF 50-55 % in 10/2017); On Coreg 3.125 mg BID and Lisinopril 10mg BID; cont. to monitor 3. Low grade temp - No evidence of PNA, UA is negative. 4. HTN - stable with current med; cont monitor 5. Hyperlipidemia - on Statin 6. Hypothyroidism - On Levothyroxin 7. CKD - stable MAR reviewed * Eho on 03/11/18 showed EF 25-30%, mild dilated LA, mildly LVH, mild TR. * From Cardiac standpoint, the pt is stable to tx to Rehab. * Plan to switch to Sotolol 5-7 days after stopping antibiotics. * No lifeVest due to code status-DNR Review of Systems - Review of Systems Constitutional: reports: no symptoms reported EENTM: reports: no symptoms reported Respiratory: reports: no symptoms reported Cardiac (ROS): reports: no symptoms reported ABD/GI: reports: no symptoms reported : reports: no symptoms reported
--- NOTE | 2018-03-18 18:31 | PDOC.PN ---
- Subjective Encounter Start Date: 03/18/18 Encounter Start Time: 18:30 Subjective: f/u for CHF/PNA. Feels better overall. Ambulated 168ft. Appetite -: improved. - Objective Resuscitation Status: Resuscitation Status DNR:Do Not Resuscitate MAR Reviewed: Yes Vital Signs & Weight: Vital Signs (12 hours) Temp Pulse Pulse Resp BP BP BP 03/18/18 15:53 98.3 F 90 18 03/18/18 15:51 60 115/64 03/18/18 13:10 60 112/53 L 03/18/18 11:36 97.4 F L 60 14 03/18/18 08:25 67 03/18/18 08:19 97.9 F 67 16 117/55 L BP Pulse Ox Pulse Ox 03/18/18 15:53 115/64 96 03/18/18 15:51 03/18/18 13:10 93 L 03/18/18 11:36 102/55 L 92 L 03/18/18 08:25 03/18/18 08:19 93 L Weight Admit Weight 129 lb Weight 112 lb 6.4 oz I&O: 03/17/18 03/18/18 03/19/18 06:59 06:59 06:59 Intake Total 900 1120 Output Total 1500 1600 Balance -600 -480 Result Diagrams: 03/17/18 05:05 03/17/18 05:05 EKG Reviewed by me: Yes (Tele - SR) Phys Exam - Physical Examination Constitutional: NAD HEENT: PERRLA, sclera anicteric, oral pharynx no lesions Neck: no nodes, no JVD, supple, full ROM few coarse sounds Cardiovascular: RRR, no significant murmur, no rub, gallop Gastrointestinal: soft, non-tender, no distention, positive bowel sounds Musculoskeletal: no edema, pulses present Neurological: normal sensation, moves all 4 limbs Psychiatric: normal affect, A&O x 3 Skin: no rash, normal turgor, cap refill <2 seconds Dx/Plan (1) Systolic heart failure Code(s): I50.20 - UNSPECIFIED SYSTOLIC (CONGESTIVE) HEART FAILURE Status: Acute Qualifiers: Heart failure chronicity: acute Qualified Code(s): I50.21 - Acute systolic (congestive) heart failure Comment: EF 25-30%, continue Lasix 40mg daily, Coreg, DEBBIE-i, no LifeVest or AICD per Cardiology (2) Atrial fibrillation with RVR Code(s): I48.91 - UNSPECIFIED ATRIAL FIBRILLATION Status: Acute Comment: Converted to SR on 03/16, continue Cardizem and Coreg, Eliquis (3) Pneumonia Code(s): J18.9 - PNEUMONIA, UNSPECIFIED ORGANISM Status: Acute Comment: Completed course of abx with Levaquin (4) Metabolic encephalopathy Code(s): G93.41 - METABOLIC ENCEPHALOPATHY Status: Acute Comment: Multifactorial, improving (5) Hypothyroid Code(s): E03.9 - HYPOTHYROIDISM, UNSPECIFIED Status: Chronic Comment: Continue Levothyroxine 50mcg daily - Plan PT/OT, licensed master social worker, out of bed/ambulate, DVT proph w/SCDs Stable overall -: Continue Coreg/Cardizem -: Continue Eliquis -: OOB/ambulate -: Plan for d/c to swing bed 03/19 * .
[2018-03-18] MEDS: Pravastatin Sodium 40 MG TAB PO SCH (21:14)
[2018-03-18] MEDS: Levothyroxine Sodium 50 MCG TAB PO SCH (21:15)
[2018-03-19 05:43] VITALS: BMI 19.8
[2018-03-19 06:10] LABS: Hemoglobin 12.5 g/dL (12.0-16.0); Platelet Count 292 thou/uL (130-400)
[2018-03-19] MEDS: Acetaminophen 325 MG TAB PO PRN (08:11)
[2018-03-19] MEDS: Carvedilol 3.125 MG TAB PO SCH (08:11)
[2018-03-19] MEDS: Famotidine 20 MG TAB PO SCH (08:12)
[2018-03-19] MEDS: Apixaban 5 MG TAB PO SCH (08:12)
[2018-03-19] MEDS: Lisinopril 5 MG TAB PO SCH (08:12)
[2018-03-19] MEDS: Potassium Chloride 20 MEQ TAB PO SCH (08:12)
[2018-03-19] MEDS: hydrALAZINE 25 MG TAB PO SCH ×2 (08:12→15:18)
[2018-03-19 13:33] VITALS: BP 103/52
--- NOTE | 2018-03-19 14:29 | PDOC.CTH ---
Cardiology Progress Note - Subjective The pt seen and examined. No overnight events. No cardiac complaints. She stated she felt better today. - Objective Vital Signs Temp Pulse Pulse Resp BP BP BP 03/19/18 11:38 97.6 F 76 16 111/57 L 03/19/18 10:56 67 103/52 L 03/19/18 07:57 97.5 F L 65 16 118/53 L 03/19/18 04:00 97.5 F L 61 16 114/62 Pulse Ox Pulse Ox Pulse Ox 03/19/18 11:38 97 03/19/18 10:56 92 L 96 03/19/18 07:57 96 03/19/18 04:00 99 Admit Weight 129 lb Weight 111 lb 12.8 oz 03/18/18 03/19/18 03/20/18 06:59 06:59 06:59 Intake Total 1120 1057 Output Total 1600 701 Balance -480 356 - Physical Examination General/Neuro: alert & oriented x3 Neck: no JVD present Lungs: CTA Heart: RRR Abdomen: soft Extremities: other: (No edema) - Telemetry Telemetry Rhythm: SR - Labs Result Diagrams: 03/19/18 05:44 03/19/18 05:44 Troponin/CKMB CK-MB (CK-2) 0.7 ng/mL (0-6.6) 03/09/18 23:31 Troponin I 0.010 ng/mL (< 0.028) 03/09/18 23:31 - Assessment/Plan 1. Paroxysmal Aflutter/Afib - S/p Cardioversion on 03/14/18, which she returned back to Afib/Aflutter same day. She converted back to SR around 1000 on with Coreg and Diltiazem. On Eliquis 5 mg BID. Cont. to monitor on tele. 2. New onset of Systolic HF - Echo on 03/11/18 showed EF 25-30% (which EF 50-55 % in 10/2017); On Coreg 3.125 mg BID and Lisinopril 10mg BID; cont. to monitor 3. Low grade temp - No evidence of PNA, UA is negative. 4. HTN - stable with current med; cont monitor 5. Hyperlipidemia - on Statin 6. Hypothyroidism - On Levothyroxin 7. CKD - stable MAR reviewed * Eho on 03/11/18 showed EF 25-30%, mild dilated LA, mildly LVH, mild TR. * From Cardiac standpoint, the pt is stable to tx to Rehab. * Plan to switch to Sotolol 5-7 days after stopping antibiotics. * No lifeVest due to code status-DNR Review of Systems - Review of Systems Constitutional: reports: weakness EENTM: reports: no symptoms reported Respiratory: reports: no symptoms reported Cardiac (ROS): reports: no symptoms reported ABD/GI: reports: poor appetite : reports: no symptoms reported Musculoskeletal: reports: no symptoms reported
--- NOTE | 2018-03-19 14:36 | PDOC.CTH ---
Cardiology Progress Note - Objective Vital Signs Temp Pulse Pulse Resp BP BP BP 03/19/18 11:38 97.6 F 76 16 111/57 L 03/19/18 10:56 67 103/52 L 03/19/18 07:57 97.5 F L 65 16 118/53 L 03/19/18 04:00 97.5 F L 61 16 114/62 Pulse Ox Pulse Ox Pulse Ox 03/19/18 11:38 97 03/19/18 10:56 92 L 96 03/19/18 07:57 96 03/19/18 04:00 99 Admit Weight 129 lb Weight 111 lb 12.8 oz 03/18/18 03/19/18 03/20/18 06:59 06:59 06:59 Intake Total 1120 1057 Output Total 1600 701 Balance -480 356 - Labs Result Diagrams: 03/19/18 05:44 03/19/18 05:44 Troponin/CKMB CK-MB (CK-2) 0.7 ng/mL (0-6.6) 03/09/18 23:31 Troponin I 0.010 ng/mL (< 0.028) 03/09/18 23:31 - Assessment/Plan 1. Paroxysmal Aflutter/Afib - S/p Cardioversion on 03/14/18, which she returned back to Afib/Aflutter same day. She converted back to SR around 1000 on with Coreg and Diltiazem. On Eliquis 5 mg BID. Cont. to monitor on tele. 2. New onset of Systolic HF - Echo on 03/11/18 showed EF 25-30% (which EF 50-55 % in 10/2017); On Coreg 3.125 mg BID and Lisinopril 10mg BID; cont. to monitor 3. Low grade temp - No evidence of PNA, UA is negative. 4. HTN - stable with current med; cont monitor 5. Hyperlipidemia - on Statin 6. Hypothyroidism - On Levothyroxin 7. CKD - stable MAR reviewed * Eho on 03/11/18 showed EF 25-30%, mild dilated LA, mildly LVH, mild TR. * From Cardiac standpoint, the pt is stable to tx to Rehab. * Plan to switch to Sotolol 5-7 days after stopping antibiotics. * No lifeVest due to code status-DNR
[2018-03-19 15:18] VITALS: TEMP 98.3
--- NOTE | 2018-03-19 15:38 | DIS ---
DATE OF ADMISSION: 03/09/2018 DATE OF DISCHARGE: 03/19/2018 DISCHARGE DIAGNOSES: 1. Acute on chronic systolic congestive heart failure with ejection fraction of 25%-30%. 2. Atrial fibrillation with variable rate control. 3. Atypical atrial flutter with current sinus mechanism. 4. Chronic obstructive pulmonary disease. 5. Pneumonia, suspected community acquired, resolved. 6. Acute metabolic encephalopathy, multifactorial, resolved. 7. Hypothyroidism, stable. 8. Deconditioning. CONSULTATIONS: Dr. Villa with Electrophysiology Service. Dr. Aldana and Dr. Willingham with Cardiology [facility]. PERTINENT LABORATORY AND X-RAY FINDINGS: Potassium ranged between 3.0-3.6. Troponin I negative x2. CRP 2.69, lactic acid level 2.0, TSH 0.41. Procalcitonin 0.11. CBC showed a white blood cell count ranging between 6.0-6.9. LIZ screen negative. Blood cultures x2 from 03/09/2018 showed no growth a t 5 days. Urine culture dated 03/09/2018 showed less than 5000 colonies of yeast species. CT angiog randy of the chest dated 03/09/2018 showed no evidence for pulmonary embolus. Emphysematous changes no fadi. A 2D transthoracic echocardiogram dated 03/10/2018 showed technically adequate exam. Repeat 2D transthoracic echocardiogram 03/11/2018 showed ejection fraction of 25%-30%. Mild tricuspid regurgi tation noted. HOSPITAL COURSE: The patient was initially admitted to the telemetry unit after presenting with alte red mentation and metabolic encephalopathy of unclear etiology. The patient was initially treated wi th broad spectrum IV antibiotic therapy after concern for underlying infectious process, potentially pulmonary source. Chest imaging including CT angiogram of the chest showed emphysematous changes wit hout focal infiltrate. The patient was treated for suspected underlying pneumonia with a course of L evaquin x7 days. The patient also received general pulmonary supportive measures including bronchodi lator therapy with DuoNeb and oxygen supplementation ranging between 2-4 liters per minute by nasal c annula. The patient was also evaluated for atrial fibrillation with rapid ventricular response as we ll as atypical atrial flutter. The patient underwent evaluation including unsuccessful electrical ca rdioversion attempt on 03/14/2018. The patient was evaluated by the Electrophysiology service with r ecommendations for rate control measures including Coreg and Cardizem. The patient was also continue d on Eliquis 5 mg b.i.d. after a CHADS2-VASc score of 5. The patient continued to clinically improve , however, was noted to be deconditioned and evaluated by physical therapy service. The patient ambu lated with standby assistance with the use of a rolling walker and had achieved up to 170 feet by the time of discharge. Due to the patient's overall comorbid status and clinical condition, the patient was deemed an appropriate candidate for ongoing care through transfer to [facility]. Th e patient has been approved and will transfer on 03/19/2018. I have examined the patient at the time of discharge and discussed followup instructions and disposition planning. The patient verbalizes u nderstanding and agreement and ready for discharge 03/19/2018. DISCHARGE MEDICATIONS: 1. Eliquis 5 mg p.o. b.i.d. 2. Enteric-coated aspirin 81 mg p.o. daily. 3. Coreg 3.125 mg p.o. b.i.d. 4. Zyrtec 10 mg 1 tab p.o. daily. 5. Vitamin D3 1000 units p.o. daily. 6. Cardizem-CD 180 mg p.o. daily. 7. Lasix 20 mg 1 tab p.o. daily. 8. Hydralazine 25 mg p.o. t.i.d. 9. DuoNeb 3 mL nebulized q.4 hours p.r.n. 10. Levothyroxine 50 mcg p.o. at bedtime. 11. Zestril 5 mg p.o. b.i.d. 12. Mobic 7.5 mg p.o. daily. 13. [place] 3 fatty acids 1 capsule p.o. daily. 14. K-Dur 20 mEq p.o. q.a.m. 15. Pravachol 40 mg p.o. at bedtime. 16. Ranitidine 150 mg p.o. daily. FOLLOWUP: The patient to follow up with her primary care provider, Dr. Martha Garcia, within 7 days of dischar . The patient will follow up with cardiac rehabilitation services in [place]. The patient wi ll follow up with Dr. Shalom Aldana and to call her office for appointment time and date. CONDITION ON DISCHARGE: Stable. ACTIVITY: Ad will with use of a rolling walker. General fall risk precautions. DIET: Heart healthy. CODE STATUS: Do not resuscitate. DISPOSITION: Transfer to [facility], [place], 03/19/2018. Total time preparing and coordinating discharge is 35 minutes.
== END 2018-03-19 16:10 | disposition swing bed (61) | DRG 291 ==
LOC: ERS 16:24 → OBSVTOIN 18:43 → T4-A 18:43 → 2NO 03-11 16:18
PROVIDERS: ADMIT Internal Medicine; ATTEND Internal Medicine
PROC: 5A2204Z Restoration of Cardiac Rhythm, Single (ICD-10-PCS; principal; 2018-03-14)
DX: I13.0 Hypertensive heart and chronic kidney disease with heart failure and stage 1 through stage 4 chronic kidney disease, or unspecified chronic kidney disease (principal); G93.41 Metabolic encephalopathy; I50.23 Acute on chronic systolic (congestive) heart failure; J18.9 Pneumonia, unspecified organism; N17.9 Acute kidney failure, unspecified; R65.10 Systemic inflammatory response syndrome (SIRS) of non-infectious origin without acute organ dysfunction; E44.0 Moderate protein-calorie malnutrition; Z68.1 Body mass index [BMI] 19.9 or less, adult; I48.4 Atypical atrial flutter; I48.1 Persistent atrial fibrillation; N39.0 Urinary tract infection, site not specified; J44.0 Chronic obstructive pulmonary disease with (acute) lower respiratory infection; I42.9 Cardiomyopathy, unspecified; N18.9 Chronic kidney disease, unspecified; R73.01 Impaired fasting glucose; E03.9 Hypothyroidism, unspecified; M19.90 Unspecified osteoarthritis, unspecified site; R68.81 Early satiety; G40.409 Other generalized epilepsy and epileptic syndromes, not intractable, without status epilepticus; Z91.013 Allergy to seafood; Z91.048 Other nonmedicinal substance allergy status; Z90.710 Acquired absence of both cervix and uterus; Z86.79 Personal history of other diseases of the circulatory system; Z87.891 Personal history of nicotine dependence; Z87.39 Personal history of other diseases of the musculoskeletal system and connective tissue; Z79.01 Long term (current) use of anticoagulants; Z79.899 Other long term (current) drug therapy; Z79.82 Long term (current) use of aspirin
CPT/HCPCS: 36415; 71275; 80048; 80053; 80061; 82533; 82565; 82607; 83605; 83615; 83735; 84145; 84439; 84443; 85014; 85018; 85025; 85049; 85652; 86038; 86140; 86225; 87086; 93005; 93010; 93306; 93798; 94640; 96360; 96361; 96365; 96375; A4216; G8978-GP-CI; G8978-GP-CK; G8979-GP-CI; G8980-GP-CI; G8987-GO-CK; G8988-GO-CI; J0456; J0696; J1200; J1940; J2704; J2930; J3370; J7050; J7620; S0028

== ENCOUNTER 2019-02-27 11:05 | Outpatient (CLI) | payer MEDICARE, MEDICAID ==
--- NOTE | 2019-02-27 11:45 | CT ---
EXAM: CT chest without contrast per low-dose cancer screening protocol HISTORY: History of smoking and nicotine dependence. Greater than 50 pack year smoking history. COMPARISON: None TECHNIQUE: Multiple contiguous axial images were obtained in a CT of the chest without contrast per l ow-dose cancer screening protocol. Sagittal and coronal reformats were performed. FINDINGS: Pulmonary nodules: A tiny calcified granuloma is seen on image 21 of 63 in the right upper lobe. No s uspicious pulmonary nodules are seen. No focal infiltrates are seen. Scarring is seen in the right lung base and in the lingula. Emphysematous changes are seen in the lungs. Pleural space: No pneumothorax or pleural effusion are seen. Heart: The heart is normal in size. Calcifications are seen in the coronary arteries and aorta. Mediastinum: No hilar or mediastinal lymphadenopathy appreciated on this limited noncontrast examinat ion. Bones: Degenerative changes in the spine. Visualized subdiaphragmatic structures: Unremarkable. IMPRESSION: Lung RADS category 1-negative.
== END 2019-02-27 11:06 | disposition home or self-care (01) ==
LOC: CT 11:05
PROVIDERS: ATTEND Internal Medicine
DX: Z87.891 Personal history of nicotine dependence (principal)
CPT/HCPCS: G0297

== ENCOUNTER 2019-03-13 10:50 | Outpatient (CLI) | payer MEDICARE, MEDICAID ==
--- NOTE | 2019-03-13 13:34 | MMO ---
Bilateral MAMMO Bilat Screen [facility]. CLINICAL HISTORY: Patient is 78 years old and is seen for screening. The patient has no family history of breast cancer. The patient has no personal history of cancer. VIEWS: The views performed were: bilateral craniocaudal with tomosynthesis and bilateral mediolateral oblique with tomosynthesis. FILMS COMPARED: The present examination has been compared to prior imaging studies performed at [facility] on 02/28/2018, and at [facility] on 09/17/2014, 09/23/2015 and 09/28/2016. MAMMOGRAM FINDINGS: The breasts are heterogeneously dense, which could obscure a lesion on mammography. There are no suspicious masses, suspicious calcifications, or new areas of architectural distortion. IMPRESSION: THERE IS NO MAMMOGRAPHIC EVIDENCE OF MALIGNANCY. A ROUTINE FOLLOW-UP MAMMOGRAM IN 1 YEAR IS RECOMMENDED. THE RESULTS OF THIS EXAM WERE SENT TO THE PATIENT. ACR BI-RADS Category 1 - Negative MAMMOGRAPHY NOTE: 1. A negative mammogram report should not delay a biopsy if a dominant of clinically suspicious mass is present. 2. Approximately 10% to 15% of breast cancers are not detected by mammography. 3. Adenosis and dense breasts may obscure an underlying neoplasm. Reported by: EDWAR HOOVER MD Electonically Signed: [id number]
== END 2019-03-13 10:51 | disposition home or self-care (01) ==
LOC: BICMAMMO 10:50
PROVIDERS: ATTEND Internal Medicine
DX: Z12.31 Encounter for screening mammogram for malignant neoplasm of breast (principal)
CPT/HCPCS: 77063; 77067

== ENCOUNTER 2019-09-27 14:22 | Inpatient (IN) | payer MEDICARE, MEDICAID ==
[2019-09-27] MEDS: Azithromycin 500 MG in Sodium Chloride 0.9% 250 ML 250 ML IVPB SCH (19:38)
[2019-09-27] MEDS: cefTRIAXone\\ROCEPHIN 1 GM in Sodium Chloride 0.9% 100 ML IVPB SCH (19:38)
[2019-09-27 20:21] VITALS: BMI 23.9
[2019-09-28] MEDS ORDERED: Guaifenesin DM 100-10/5 ML UDCUP PO PRN (00:51)
[2019-09-28] MEDS ORDERED: Bisacodyl 10 MG SUPP PR PRN (00:51)
[2019-09-28] MEDS ORDERED: Senokot S 8.6-50 MG TAB PO PRN (00:51)
[2019-09-28] MEDS ORDERED: HYDROcodone/Acetaminophen 5/325 mg Tablet PO PRN (00:51)
[2019-09-28] MEDS ORDERED: Artificial Tear Sol 15 ML BOT EA EYE PRN (00:51)
[2019-09-28] MEDS ORDERED: Ondansetron PF 4 MG/2 ML Vial IVP PRN (00:51)
[2019-09-28] MEDS ORDERED: Acetaminophen 325 MG TAB PO PRN (00:51)
[2019-09-28] MEDS ORDERED: Dextrose 5% in Water 1,000 ML IV PRN (00:52)
[2019-09-28] MEDS ORDERED: HumaLOG 300 UNITS/3 ML VIAL SC PRN (00:52)
[2019-09-28] MEDS ORDERED: Dextrose 50% Abboject 50 ML SYRINGE SLOW IVP PRN (00:52)
--- NOTE | 2019-09-28 01:25 | HP ---
REASON FOR ADMISSION: COPD exacerbation. HISTORY OF PRESENTING ILLNESS: The patient gives history of cough with expectoration of green sputum from Sunday. This has been progressively getting worse. No fever as such at home. She does not use any home oxygen, but she does use inhalers and not nebulizers. She ambulates by herself. No complaints of chest pain or palpitation. She lives alone and does all her activities of daily living. She has taken a flu shot for this year. PAST MEDICAL AND SURGICAL HISTORY: History of CHF with systolic and diastolic dysfunction with ejection fraction of around 25%; chronic atrial fibrillation, she sees Dr. Aldana and has a followup appointment next month; dyslipidemia; hypothyroidism; hypertension; history of seizure disorder; prior history of brain aneurysm with surgery; hysterectomy. CURRENT MEDICATIONS: The patient is on; 1. Coreg 6.25 mg twice daily. 2. Flovent 2 sprays to each nostril daily. 3. Advair Diskus inhaler twice daily. 4. Lasix 20 mg daily. 5. Levothyroxine 50 mcg p.o. daily. 6. Fish oil one capsule daily. 7. K-Dur 20 mEq p.o. daily. 8. Ranitidine 75 mg every 2 days. 9. Eliquis 5 mg twice daily. 10. Aspirin 81 mg daily. 11. Vitamin D3 1000 mg daily. 12. Cardizem CD 180 mg daily. 13. Claritin 10 mg p.o. daily. 14. Pravachol 40 mg p.o. at bedtime. ALLERGIES: TO IODINE AND SHELLFISH. PERSONAL HISTORY: Quit smoking 14 years ago, prior to which has smoked 2 packs a day for nearly 40 years. She drinks 2 beers at bedtime. Does not abuse drugs. She lives alone. FAMILY HISTORY: The patient is from last 32 years. Her both parents are . Mom of natural causes at the age of 80. Father of massive NH at the age of 70. The patient had 3 children, one of them in a motor vehicle accident. Has 2 sons living, who are 60 and 55 years old. CODE STATUS: Do not attempt to resuscitate. This was discussed with the patient at bedside. Power of attorney at law is her close friend, Mr. Blaze Wei or her older son, Mr. Edward Eid. REVIEW OF SYSTEMS: CONSTITUTIONAL: Negative for weight loss or gain, ability to conduct usual activities. SKIN: Negative for rash, itching. EYES: Negative for double vision, pain. ENT/MOUTH: Negative for nose bleeding, neck stiffness, pain, tenderness. CARDIOVASCULAR: Negative for palpitations, dyspnea on exertion, orthopnea. RESPIRATORY: Negative for shortness of breath, wheezing, cough, hemoptysis, fever or night sweats. GASTROINTESTINAL: Negative for poor appetite, abdominal pain, heartburn, nausea , vomiting, constipation, or diarrhea. GENITOURINARY: Negative for urgency, frequency, dysuria, nocturia. MUSCULOSKELETAL: Negative for pain, swelling. NEUROLOGIC/PSYCHIATRIC: Negative for anxiety, depression. ALLERGY/IMMUNOLOGIC: Negative for skin rash, bleeding tendency. PHYSICAL EXAMINATION: GENERAL: The patient is an 79-year-old female, who is currently not in any acute distress. VITAL SIGNS: Blood pressure 120/86, pulse 94 per minute, respiratory rate 24 per minute, temperature 98.1 degrees Fahrenheit, saturating 93% on 4 L nasal cannula. NECK: Supple. No elevated JVD. HEENT: Eyes; extraocular muscles intact. Pupils reacting to light. Oral cavity, mucous membranes are moist. No exudates or congestion. CARDIOVASCULAR: S1, S2 heard. Irregular rhythm. RESPIRATORY: Air entry 1+ bilateral. Scattered wheezes plus bilateral. There are basal rales as well. ABDOMEN: Soft. Bowel sounds heard. No tenderness, rigidity, or guarding. EXTREMITIES: No peripheral edema or calf tenderness. VASCULAR: Peripheral pulses 1+ bilateral. No ischemic ulcerations or gangrene. CENTRAL NERVOUS SYSTEM: No gross focal deficits noted. The patient is alert, awake, and oriented well. PSYCHIATRIC: The patient's mood is euthymic. No hallucinations or delusions. LABORATORY DATA: The patient's prior pulmonary function test done in April of 2018 showed mild obstructive lung disease without reversibility. Chest x-ray done this admission showed no acute cardiopulmonary abnormality. EKG done shows atrial flutter at 104 beats per minute. There is T-inversion seen in lateral leads V4 , V5, V6. BNP 387. Serum glucose 192, lactic acid 2.7, BUN 8, creatinine 1.0. Liver enzymes within normal limits. Albumin is 4.1. Electrolytes stable. White count of 9, H and H of 15 and 48, platelet count 300, MCV is 104 with 60% neutrophils, 21 % bands, 14% monocytes. Macrocytosis seen. CLINICAL IMPRESSION AND PLAN: The patient will be admitted to telemetry for acute respiratory failure with hypoxia, chronic obstructive pulmonary disease exacerbation. The patient does not appear to have clinically congestive heart failure exacerbation, although, her ejection fraction is only 25%. We will continue her ceftriaxone and Zithromax, which has been started in the ER. She will be on a short course of steroids for 2 days with rapid taper. DuoNeb q.6 hourly. The patient has known history of atrial fibrillation, but currently she is in atrial flutter. We will consult Dr. Khan for Pulmonology. If needed, Cardiology will be consulted if her atrial fibrillation or flutter gets worse with nebulizers. We will continue Eliquis, Coreg, Cardizem CD, Lasix, K-Dur, levothyroxine, fish oil , Pravachol as before. We will continue to closely monitor her on telemetry for now. Job ID: [id number] MTDD
[2019-09-28 04:53] LABS: #Lymphocytes 0.5 thou/uL (1.20-3.40); #Monocytes 0.3 thou/uL (0.11-0.59); #Neutrophils 4.7 thou/uL (1.40-6.50); %Eosinophils 0.3 % (0.0-10.0); %Lymphocytes 8.3 % (21.0-51.0); %Neutrophils 86.4 % (42.0-75.0); Hemoglobin 13.8 g/dL (12.0-16.0); Mean Corpuscular HGB CONC 32.3 g/dL (32.0-36.0); Mean Corpuscular Hemoglobin 34.1 pg (27.0-31.0); Mean Platelet Volume 7.3 fL (7.4-10.4); Platelet Count 285 thou/uL (130-400); RBC Distribution Width 11.8 % (11.5-14.5); Red Blood Cell (RBC) Count 4.05 mill/uL (4.20-5.40); White Blood Cell (WBC) Count 5.4 thou/uL (4.8-10.8)
[2019-09-28] MEDS: methylPREDNISolone Sod Succ 40 MG VIAL IVP SCH ×3 (05:13→21:31)
[2019-09-28 05:14] LABS: Anion Gap 16 mmol/L (10-20); BUN (Urea Nitrogen) 9 mg/dL (9.8-20.1); Calc. Creatinine Clearance 56 mL/min (70-130); Calcium 8.8 mg/dL (7.8-10.44); Carbon Dioxide 23 mmol/L (23-31); Chloride 103 mmol/L (98-107); Estimated GFR-MDRD 71; Glucose 158 mg/dL (83-110); Potassium 4.7 mmol/L (3.5-5.1); Sodium 137 mmol/L (136-145)
[2019-09-28] MEDS: Mometasone/Formoterol 120 PUFF INHALER INH SCH ×2 (07:41→18:53)
[2019-09-28] MEDS: Aspirin 81 mg Enteric Coated Tablet PO SCH (10:15)
[2019-09-28] MEDS: Carvedilol 6.25 MG TAB PO SCH ×2 (10:15→21:31)
[2019-09-28] MEDS: Apixaban 5 MG TAB PO SCH ×2 (10:15→21:31)
[2019-09-28] MEDS: Famotidine 20 MG TAB PO SCH (10:16)
[2019-09-28] MEDS: Potassium Chloride 20 MEQ TAB PO SCH (10:16)
[2019-09-28] MEDS: Furosemide 20 MG TAB PO SCH (10:16)
[2019-09-28] MEDS: Fluticasone Propionate Nasal Spray 16 gm Bottle NASAL SCH (10:16)
[2019-09-28] MEDS: Loratadine 10 MG TAB PO SCH (10:16)
[2019-09-28] MEDS: Fish Oil 1,000 MG CAP PO SCH (10:16)
--- NOTE | 2019-09-28 12:00 | PRG ---
DATE OF SERVICE: 09/28/2019 SUBJECTIVE: The patient is seen and examined at the bedside. She coughs up quite a bit of yellowish phlegm. Her shortness of breath is somewhat better. She is on oxygen. OBJECTIVE: VITAL SIGNS: Blood pressure is 137/71, pulse is 85, temperature is 97.6, respiratory rate is 16, O2 saturation is 95% on 2 L by nasal cannula. HEENT: Head is atraumatic and normocephalic. Eyes are PERRLA. Sclerae are nonicteric. Oral mucosa is moist. NECK: Supple. LUNGS: A few wheezes and rales at both bases. Lung exam, very emphysematous. HEART: S1, S2 normal. No S3. No S4. Regular. ABDOMEN: Soft, nontender. Bowel sounds are present. No organomegaly. EXTREMITIES: No clubbing, cyanosis, or edema. NEUROLOGIC: She is alert and oriented x4. There are no any motor or sensory deficits. Cranial nerves are intact. LABORATORY DATA: Labs showed white count of 5.4, hemoglobin 13.8, hematocrit 42.7, platelet count 285,000. Glucose 158, BUN 9. Electrolytes within normal limits. Calcium 8.8. IMPRESSION: 1. Exacerbation of chronic obstructive pulmonary disease. 2. Acute respiratory failure with hypoxia. 3. History of congestive heart failure, mild exacerbation. 4. Atrial fibrillation, which converted to normal sinus rhythm at 2:30 this morning according to the monitoring. 5. Hyperlipidemia. 6. Hypothyroidism. 7. History of seizure disorder. 8. History of brain aneurysm, status post surgery. PLAN: Continue her current regimen, which includes DuoNeb inhaled and IV steroids, azithromycin IV, apixaban 5 mg twice a day, furosemide 20 mg daily, Coreg 6.25 mg twice a day, diltiazem 180 mg daily, levothyroxine 50 mcg once a day, potassium chloride, and ceftriaxone 1 g IV piggyback daily. Job ID: [id number]
[2019-09-28] MEDS: HumaLOG 300 UNITS/3 ML VIAL SC PRN ×2 (12:17→17:12)
[2019-09-28] MEDS: Azithromycin 500 MG in Sodium Chloride 0.9% 250 ML 250 ML IVPB SCH (17:11)
[2019-09-28] MEDS: cefTRIAXone\\ROCEPHIN 1 GM in Sodium Chloride 0.9% 100 ML IVPB SCH (17:12)
--- NOTE | 2019-09-28 20:54 | CON ---
DATE OF CONSULTATION: 09/28/2019 REASON FOR CONSULTATION: COPD exacerbation. HISTORY OF PRESENT ILLNESS: The patient is an 79-year-old female, who came to the hospital yesterday with a 3- to 4-day history of increasing shortness of breath that started with a gastrointestinal infection on Sunday of last week. She now feels better and has no complaints. She says she has never been officially diagnosed with COPD, but has taken some inhalers for quite some time. She also has a history of chronic systolic heart failure. PAST MEDICAL HISTORY: 1. Probable COPD. 2. Chronic atrial fibrillation. 3. Systolic heart failure with EF 25%. 4. Hyperlipidemia. 5. Hypothyroidism. 6. Hypertension. 7. Seizure disorder. 8. Brain aneurysm, requiring surgery. 9. Hysterectomy. MEDICATIONS: Prior to admission, 1. Coreg. 2. Flovent. 3. Advair. 4. Lasix. 5. Levothyroxine. 6. Fish oil. 7. K-Dur. 8. Ranitidine. 9. Eliquis. 10. Aspirin. 11. Vitamin D3. 12. Cardizem CD. 13. Claritin. 14. Pravachol. ALLERGIES: IODINE. SOCIAL HISTORY: Quit smoking about 14 years ago after a two-pack year history for 40 years. Occasionally drinks beer. FAMILY MEDICAL HISTORY: . Has history of heart disease in the family. REVIEW OF SYSTEMS: Twelve-point review of systems is otherwise negative. PHYSICAL EXAMINATION: VITAL SIGNS: Temperature 98.2, pulse 99, respirations 16, O2 saturation 95%, and blood pressure 144/89. GENERAL: She is awake, alert, in no distress. HEENT: Unremarkable. NECK: No adenopathy or JVD. LUNGS: Clear anteriorly. CARDIAC: S1 and S2. Regular. ABDOMEN: Soft and nontender. EXTREMITIES: No clubbing, cyanosis, or edema. LABORATORY DATA: Micro shows no growth today,. White blood cell count 5.4, hematocrit 42.7, and platelet count 285. Sodium 137, potassium 4.7, chloride 103, CO2 of 23, BUN 9, creatinine 0.7, glucose 158. Her x-ray looks fairly clear. ASSESSMENT: Chronic obstructive pulmonary disease with exacerbation-improved quickly with antibiotics, nebulization treatment, and steroids. PLAN: She should be able to go home as early as tomorrow. I have nothing to add to the current management. We will be available as needed. Job ID: [id number]
[2019-09-28] MEDS: Atorvastatin Calcium 10 MG TAB PO SCH (21:30)
[2019-09-28] MEDS: Levothyroxine Sodium 50 MCG TAB PO SCH (21:30)
[2019-09-29] MEDS: methylPREDNISolone Sod Succ 40 MG VIAL IVP SCH ×2 (05:56→14:50)
[2019-09-29] MEDS: Mometasone/Formoterol 120 PUFF INHALER INH SCH ×2 (07:22→19:27)
[2019-09-29 08:24] LABS: Hemoglobin 14.9 g/dL (12.0-16.0); Platelet Count 380 thou/uL (130-400)
[2019-09-29] MEDS: Apixaban 5 MG TAB PO SCH ×2 (08:45→20:37)
[2019-09-29] MEDS: Furosemide 20 MG TAB PO SCH (08:45)
[2019-09-29] MEDS: Potassium Chloride 20 MEQ TAB PO SCH (08:45)
[2019-09-29] MEDS: Aspirin 81 mg Enteric Coated Tablet PO SCH (08:45)
[2019-09-29] MEDS: Famotidine 20 MG TAB PO SCH (08:45)
[2019-09-29] MEDS: Carvedilol 6.25 MG TAB PO SCH ×2 (08:46→20:37)
[2019-09-29] MEDS: Fluticasone Propionate Nasal Spray 16 gm Bottle NASAL SCH (08:46)
[2019-09-29] MEDS: Fish Oil 1,000 MG CAP PO SCH (08:46)
[2019-09-29] MEDS: Loratadine 10 MG TAB PO SCH (08:46)
--- NOTE | 2019-09-29 10:25 | PRG ---
DATE OF SERVICE: 09/29/2019 SUBJECTIVE: Ms. Eid is anxious to go home. She had no complaints today. OBJECTIVE: VITAL SIGNS: Temperature 97.8, pulse 94, respirations 18, O2 saturation 94% on 1.5 L. HEENT: Unremarkable. NECK: No adenopathy or JVD. CHEST: Clear without wheezing. CARDIAC: S1 and S2, regular. ABDOMEN: Soft. EXTREMITIES: No edema. ASSESSMENT: Chronic obstructive pulmonary disease with exacerbation. PLAN: Can go home on tapered steroids, nebulization therapy, and antibiotics. Pulmonary will sign off. Job ID: [id number]
[2019-09-29] MEDS: Azithromycin 500 MG in Sodium Chloride 0.9% 250 ML 250 ML IVPB SCH (16:29)
[2019-09-29] MEDS: cefTRIAXone\\ROCEPHIN 1 GM in Sodium Chloride 0.9% 100 ML IVPB SCH ×2 (18:26→18:46)
--- NOTE | 2019-09-29 18:31 | PDOC.HOSPP ---
- Subjective Encounter Date: 09/29/19 Encounter Time: 09:20 Subjective: Pt seen for followup re: acute hypoxic respiratory failure. feels better. - Objective Vital Signs & Weight: Vital Signs (12 hours) Temp Pulse Resp BP BP BP Pulse Ox 09/29/19 16:00 97.5 F L 97 18 127/99 H 96 09/29/19 14:14 90 14 09/29/19 11:24 97.4 F L 94 18 135/92 H 95 09/29/19 08:46 142/84 H 09/29/19 08:00 94 L 09/29/19 07:38 97.8 F 94 18 139/94 H 94 L 09/29/19 07:26 90 L 09/29/19 07:22 91 14 Weight Admit Weight 135 lb 3.2 oz Weight 135 lb 3.2 oz I&O: 09/28/19 09/29/19 09/30/19 06:59 06:59 06:59 Intake Total 240 Output Total 500 Balance -260 Result Diagrams: 09/29/19 08:16 09/29/19 08:16 Additional Labs: Accuchecks 09/29/19 09/29/19 09/29/19 17:06 10:43 05:10 POC Glucose 178 H 165 H 154 H 09/28/19 20:29 POC Glucose 147 H Labs and MARs reviewed by me EKG Reviewed by me: Yes (Tele; a. fib) Hospitalist ROS - Review of Systems Respiratory: reports: SOB with excertion Gastrointestinal: denies: nausea, vomiting, abdominal pain, diarrhea, constipation, melena, hematochezia Genitourinary: denies: dysuria, frequency, incontinence, hematuria, retention - Medication Medications: Active Medications Generic Name Dose Route Start Last Admin Trade Name Freq PRN Reason Stop Dose Admin Albuterol/Ipratropium 3 ml 09/28/19 01:00 09/29/19 14:14 Duoneb NEB 3 ml [id number] JODY Administration Apixaban 5 mg 09/28/19 09:00 09/29/19 08:45 Eliquis PO 5 mg BID JODY Administration Aspirin 81 mg 09/28/19 09:00 09/29/19 08:45 Ecotrin PO 81 mg DAILY JODY Administration Atorvastatin Calcium 10 mg 09/28/19 21:00 09/28/19 21:30 Lipitor PO 10 mg HS JODY Administration Carvedilol 6.25 mg 09/28/19 09:00 09/29/19 08:46 Coreg PO 6.25 mg BID JODY Administration Cholecalciferol 1,000 units 09/28/19 09:00 09/29/19 08:45 Vitamin D3 PO 1,000 units DAILY JODY Administration Diltiazem HCl 180 mg 09/28/19 09:00 09/29/19 08:47 Cardizem Cd PO 180 mg DAILY JODY Administration Famotidine 20 mg 09/28/19 09:00 09/29/19 08:45 Pepcid PO 20 mg DAILY JODY Administration Fish Oil 1,000 mg 09/28/19 09:00 09/29/19 08:46 Fish Oil PO 1,000 mg DAILY JODY Administration Fluticasone Propionate 0 gm 09/28/19 09:00 09/29/19 08:46 Flonase Nasal [place] NASAL 2 spr DAILY JODY Administration Furosemide 20 mg 09/28/19 09:00 09/29/19 08:45 Lasix PO 20 mg DAILY JODY Administration Azithromycin 500 mg/ Sodium 250 mls @ 250 mls/hr 09/27/19 17:00 09/29/19 16: 29 Chloride IVPB 250 mls Q24HR JODY Administration Ceftriaxone Sodium 1 gm/ 100 mls @ 200 mls/hr 09/27/19 18:00 09/29/19 18:26 Sodium Chloride IVPB 100 mls Q24HR JODY Administration Insulin Human Lispro 0 units 09/28/19 00:52 09/28/19 17:12 Humalog SC 4 unit .MODERATE SLIDING SC PRN Administration Moderate Correctional Scale Levothyroxine Sodium 50 mcg 09/28/19 21:00 09/28/19 21:30 Synthroid PO 50 mcg HS JODY Administration Loratadine 10 mg 09/28/19 09:00 09/29/19 08:46 Claritin PO 10 mg DAILY JODY Administration Methylprednisolone Sodium Succinate 20 mg 09/28/19 06:00 09/29/19 14:50 Solu-Medrol IVP 20 mg Q8HR JODY Administration Mometasone Furoate/Formoterol Fumar 2 puff 09/28/19 06:30 09/29/19 07:22 Dulera 200 Mcg/5 Mcg Inhaler INH 2 puff BID-RT JODY Administration Potassium Chloride 20 meq 09/28/19 09:00 09/29/19 08:45 K-Dur PO 20 meq DAILY JODY Administration - Exam General Appearance: NAD Eye: anicteric sclera ENT: moist mucosa Neck: supple, no JVD Heart: no rubs, irregular Respiratory: CTAB Gastrointestinal: soft, non-tender Extremities: no cyanosis Skin: no lesions Psychiatric: normal affect, normal behavior Hosp A/P (1) Acute respiratory failure with hypoxia Code(s): J96.01 - ACUTE RESPIRATORY FAILURE WITH HYPOXIA Status: Acute (2) COPD exacerbation Code(s): J44.1 - CHRONIC OBSTRUCTIVE PULMONARY DISEASE W (ACUTE) EXACERBATION Status: Acute (3) Hypothyroid Code(s): E03.9 - HYPOTHYROIDISM, UNSPECIFIED Status: Chronic (4) Afib Code(s): I48.91 - UNSPECIFIED ATRIAL FIBRILLATION Status: Chronic - Plan respiratory therapy, out of bed/ambulate Pt had significant hypoxia with ambulation. Will arrange for home oxygen and discharge home tomorrow. Continue apixaban. Switch to oral antibiotics and steroids.
[2019-09-29] MEDS: Levothyroxine Sodium 50 MCG TAB PO SCH (20:37)
[2019-09-29] MEDS: Cefdinir 300 MG CAP PO SCH (20:37)
[2019-09-29] MEDS: Atorvastatin Calcium 10 MG TAB PO SCH (20:37)
[2019-09-30] MEDS: Mometasone/Formoterol 120 PUFF INHALER INH SCH (06:56)
[2019-09-30] MEDS ORDERED: predniSONE 20 MG TAB PO SCH (08:00)
[2019-09-30] MEDS: Apixaban 5 MG TAB PO SCH (09:28)
[2019-09-30] MEDS: Aspirin 81 mg Enteric Coated Tablet PO SCH (09:28)
[2019-09-30] MEDS: Fish Oil 1,000 MG CAP PO SCH (09:29)
[2019-09-30] MEDS: Cefdinir 300 MG CAP PO SCH (09:29)
[2019-09-30] MEDS: Famotidine 20 MG TAB PO SCH (09:29)
[2019-09-30] MEDS: Furosemide 20 MG TAB PO SCH (09:30)
[2019-09-30] MEDS: Fluticasone Propionate Nasal Spray 16 gm Bottle NASAL SCH (09:30)
[2019-09-30] MEDS: Loratadine 10 MG TAB PO SCH (09:30)
[2019-09-30] MEDS: Potassium Chloride 20 MEQ TAB PO SCH (09:30)
[2019-09-30] MEDS: Carvedilol 6.25 MG TAB PO SCH (09:30)
[2019-09-30 11:31] VITALS: TEMP 97.4
[2019-09-30] MEDS: HumaLOG 300 UNITS/3 ML VIAL SC PRN (11:31)
[2019-09-30] MEDS ORDERED: cloNIDine 0.1 MG TAB PO PRN (14:58)
[2019-09-30 14:59] VITALS: BP 176/110
[2019-09-30] MEDS ORDERED: hydrALAZINE 20 MG/ML VIAL SLOW IVP SCH (15:00)
--- NOTE | 2019-10-01 02:36 | DIS ---
DATE OF ADMISSION: 09/27/2019 DATE OF DISCHARGE: 09/30/2019 PRIMARY CARE PROVIDER: Dr. Martha Garcia. DISCHARGE DIAGNOSES: 1. Acute hypoxic respiratory failure. 2. Chronic obstructive pulmonary disease exacerbation. CONDITION OF PATIENT ON THE DAY OF DISCHARGE: Stable. I assessed Ms. Eid on the day of discharge. She denies any chest pain or shortness of breath. Vital signs are stable. S1 and S2 are heard, regular. Lungs are clear to auscultation bilaterally. CONSULTATIONS DURING THIS HOSPITALIZATION: Pulmonary and Critical Care Medicine, Dr. Frandy Khan. POST-ACUTE CARE FOLLOWUP: With primary care provider in [address] Khan in 2 to 3 weeks. DISCHARGE MEDICATIONS: Omnicef 300 mg 2 times a day for 1 week and oral prednisone taper are her new medications. Otherwise, no change was made to her pre-admission home medications as dictated by Dr. Waller in his history and physical note dated 09/28/2019. HOSPITAL COURSE: Ms. Eid is a pleasant 79-year-old lady, who was admitted to [facility] on 09/27/2019, for acute hypoxic respiratory failure secondary to COPD exacerbation. She improved with oxygen, steroids, bronchodilators, and antibiotics. She was seen by Pulmonary and Critical Care Medicine Service. On 09/29, her oxygen saturations dropped to 74% with ambulation and improved after she used oxygen again. She will need home oxygen. Arrangements are being made for the same. Many thanks for allowing me to participate in your patient's care. Please feel free to contact with any questions or concerns. DISCHARGE DESTINATION: Home. TIME SPENT: Total amount of time spent coordinating this discharge: 32 minutes. DIET: Heart healthy. ACTIVITY: As tolerated. TIME SPENT: Total amount of time spent coordinating this discharge, 31 minutes. Job ID: [id number]
--- NOTE | 2019-10-01 07:56 | PQF ---
[facility] [id number] CLINICAL DOCUMENTATION CLARIFICATION FORM: POST DISCHARGE Addendum to original discharge summary date: ____ Late entry note date: __ DATE:10/01/2019 ATTN: STEFANIA ANGUIANO Please exercise your independent, professional judgment in responding to the clarification form. Clinical indicators are provided on the bottom of this form for your review Please check appropriate box(s) to clarify if the following diagnosis has been ruled in or ruled out: Sepsis [ ] Ruled in diagnosis [ ] Continue to treat [ ] Resolved [ X ] Ruled out diagnosis [ ] Cannot rule out diagnosis [ ] Other diagnosis [ ] Unable to determine For continuity of documentation, please document condition throughout progress notes and discharge summary. Thank You. CLINICAL INDICATORS - SIGNS / SYMPTOMS / LABS SIRS scoring:Respiratory rate >20/min, PaCo2<32 mm Hg, Heart rate > 90, Yes, Patient did meet at least 2 criteria for STEP 1, Productive cough /PNA yes, Patient did meet at least 1 criteria for STEP 2-Documented in ED on 09/27 by Tru Stringer DO Resp-24, [id number] in ED on 09/27 by Tru Stringer DO Sepsis-Documented in ED on 09/27 by Tru Stringer DO Pneumonia-Documented in ED on 09/27 by Tru Stringer DO Lactic acid-2.7-Documented in H&P on 09/27 by Fanny Waller Acute respiratory failure with hypoxia,COPD exacerbation-Documented in H&P on by Fanny Waller RISK FACTORS Acute respiratory failure with hypoxia,COPD exacerbation-Documented in H&P on by Fanny Waller TREATMENTS We will continue her ceftriaxone and Zithromax which has been started in the ER- Documented in H&P on 09/27 by Fanny Waller (This form is maintained as a part of the permanent medical record) 2015 [employer] All Rights Reserved [email or web address]
--- NOTE | 2019-10-01 08:26 | PQF ---
[facility] DAV[facility] [id number] [facility]-279 [id number] CLINICAL DOCUMENTATION CLARIFICATION FORM: POST DISCHARGE Addendum to original discharge summary date: ____ Late entry note date: __ DATE:10/01/2019 ATTN: STEFANIA ANGUIANO Please exercise your independent, professional judgment in responding to the clarification form. Clinical indicators are provided on the bottom of this form for your review Please check appropriate box(s) to clarify if the following diagnosis has been ruled in or ruled out: Pneumonia [ ] Ruled in diagnosis [ ] Continue to treat [ ] Resolved [ X ] Ruled out diagnosis [ ] Cannot rule out diagnosis [ ] Other diagnosis [ ] Unable to determine For continuity of documentation, please document condition throughout progress notes and discharge summary. Thank You. CLINICAL INDICATORS - SIGNS / SYMPTOMS / LABS Patient presents for evaluation of cough , productive of green sputum- Documented in ED on 09/27 by Tru Stringer DO Rocephin and azithromycin given prior to arrival with pneumonia suspected-- Documented in ED on 09/27 by Tru Stringer DO Pneumonia unspecified organism-Documented in ED on 09/27 by Tru Stringer DO Acute respiratory failure with hypoxia,COPD exacerbation-Documented in H&P on by Fanny Waller RISK FACTORS Acute respiratory failure with hypoxia,COPD exacerbation-Documented in H&P on by Fanny Waller TREATMENTS We will continue her ceftriaxone and Zithromax which has been started in the ER- Documented in H&P on 09/27 by Fanny Waller [employer] (This form is maintained as a part of the permanent medical record) 2014 [employer]. All Rights Reserved [email or web address] [phone] ANGEL
== END 2019-09-30 15:35 | disposition home or self-care (01) | DRG 189 ==
LOC: ERS 14:22 → 2NO 18:30
PROVIDERS: ADMIT Internal Medicine; ATTEND Internal Medicine
DX: J96.01 Acute respiratory failure with hypoxia (principal); J44.1 Chronic obstructive pulmonary disease with (acute) exacerbation; I48.20 Chronic atrial fibrillation, unspecified; I50.22 Chronic systolic (congestive) heart failure; E03.9 Hypothyroidism, unspecified; E78.5 Hyperlipidemia, unspecified; Z87.891 Personal history of nicotine dependence; G40.909 Epilepsy, unspecified, not intractable, without status epilepticus; Z90.710 Acquired absence of both cervix and uterus; Z91.013 Allergy to seafood; I11.0 Hypertensive heart disease with heart failure; Z91.041 Radiographic dye allergy status
CPT/HCPCS: 36415; 36416; 80048; 82565; 85014; 85018; 85025; 85049; 87070; 87205; 93005; 94640; 94664; 94760; 96360; 96361; J0456; J0696; J2920; J3490; J7050; J7512; J7620

== ENCOUNTER 2020-03-18 12:18 | Outpatient (CLI) | payer MEDICARE, MEDICAID ==
--- NOTE | 2020-03-18 13:08 | BD ---
EXAM: DEXA bone density examination HISTORY: 79-year-old postmenopausal female for screening COMPARISON: None 07/12/2017 FINDINGS: L1--bone mineral density 0.941 g/sq cm; T score -0.4 L2--bone mineral density 1.028 g/sq cm; T score 0.0 L3--bone mineral density 1.123 g/sq cm; T score 0.4 L4--bone mineral density 1.235 g/sq cm; T score 1.6 Total L1-L4--bone mineral density 1.090 g/sq cm; T score 0.4 Left femoral neck--bone mineral density0.775; T score -0.7 Total proximal left femur--bone mineral density 0.795; T score -1.2 IMPRESSION: Osteopenia. This patient has a 10 year WHO fracture risk of a major osteoporotic fracture of 12% and of a hip fracture of 2.7%. Compared to the prior examination, the bone density has decreased approximately 3.7% in the hip.
--- NOTE | 2020-03-18 15:17 | MMO ---
Bilateral MAMMO Bilat Screen [facility]. CLINICAL HISTORY: Patient is 79 years old and is seen for screening. The patient has no family history of breast cancer. The patient has no personal history of cancer. VIEWS: The views performed were: bilateral craniocaudal with tomosynthesis and bilateral mediolateral oblique with tomosynthesis. FILMS COMPARED: The present examination has been compared to prior imaging studies performed at [facility] on 02/28/2018 and 03/13/2019, and at [facility] on 09/23/2015 and 09/28/2016. This study has been interpreted with the assistance of computer-aided detection. MAMMOGRAM FINDINGS: The breasts are heterogeneously dense, which could obscure a lesion on mammography. Benign calcifications are noted bilaterally. There are no suspicious masses, suspicious calcifications, or new areas of architectural distortion. IMPRESSION: THERE IS NO MAMMOGRAPHIC EVIDENCE OF MALIGNANCY. A ROUTINE FOLLOW-UP MAMMOGRAM IN 1 YEAR IS RECOMMENDED. THE RESULTS OF THIS EXAM WERE SENT TO THE PATIENT. ACR BI-RADS Category 2 - Benign finding MAMMOGRAPHY NOTE: 1. A negative mammogram report should not delay a biopsy if a dominant of clinically suspicious mass is present. 2. Approximately 10% to 15% of breast cancers are not detected by mammography. 3. Adenosis and dense breasts may obscure an underlying neoplasm. Reported by: BRITTANI COTTO MD Electonically Signed: [id number]
== END 2020-03-18 12:19 | disposition home or self-care (01) ==
LOC: BICMAMMO 12:18
PROVIDERS: ATTEND Internal Medicine
DX: Z12.31 Encounter for screening mammogram for malignant neoplasm of breast (principal); Z13.820 Encounter for screening for osteoporosis; M85.852 Other specified disorders of bone density and structure, left thigh; Z78.0 Asymptomatic menopausal state
CPT/HCPCS: 77063; 77067; 77080

== ENCOUNTER 2020-03-25 10:28 | Outpatient (CLI) | payer MEDICARE, MEDICAID ==
--- NOTE | 2020-03-25 11:50 | CT ---
LOW DOSE CT SCAN OF CHEST WITHOUT IV CONTRAST FOR LUNG CANCER SCREENING: Date: 03/25/2020 HISTORY: Smoking and nicotine dependence. Greater than 50 pack year smoking history. COMPARISON: 02/27/2019. FINDINGS: Tiny calcified granuloma in the right upper lobe is again seen. No suspicious pulmonary nodules are i dentified. Emphysematous changes are again seen. Scarring in the right lung base and lingula are rede monstrated. No pleural or pericardial effusions are seen. There are vascular calcifications without evidence of a neurysmal dilatation of the abdominal aorta. A small hiatal hernia is present. IMPRESSION: Lung-RADS Category 2: Negative. Benign pulmonary findings. RECOMMENDATION: Continue annual screening with LDCT in 12 months. POS: OFF
== END 2020-03-25 10:29 | disposition home or self-care (01) ==
LOC: BICCT 10:28
PROVIDERS: ATTEND Internal Medicine
DX: Z12.2 Encounter for screening for malignant neoplasm of respiratory organs (principal); Z87.891 Personal history of nicotine dependence
CPT/HCPCS: G0297

== ENCOUNTER 2020-12-31 12:04 | Inpatient (IN) | payer MEDICARE, MEDICAID ==
[2020-12-31] MEDS ORDERED: Ondansetron PF 4 MG/2 ML Vial IVP PRN (15:05)
[2020-12-31] MEDS ORDERED: Senokot S 8.6-50 MG TAB PO PRN (15:05)
[2020-12-31] MEDS ORDERED: Bisacodyl 5 MG TAB PO PRN (15:05)
[2020-12-31] MEDS ORDERED: guaiFENesin/Codeine 200 mg/20 mg 10 ml Cup PO PRN (15:15)
[2020-12-31 15:37] VITALS: BMI 22.6
[2020-12-31 17:11] LABS: Troponin I 0.441 ng/mL (< 0.028)
[2020-12-31] MEDS ORDERED: Furosemide 40 MG/4 ML VIAL ONE (17:59)
[2020-12-31] MEDS ORDERED: predniSONE 50 MG TAB ONE (18:03)
[2020-12-31] MEDS ORDERED: Sodium Chloride 0.9% 10 ML ONE (18:04)
[2020-12-31 18:11] LABS: Actual Bicarbonate (HCO3a) 25.2 mEq/L (22-28); CO2 Tension 47.5 mmHg (35.0-45.0); Carboxyhemoglobin (COHb) 1.5 gm% (0.0-3.0); Hemoglobin (Hb) 15.7 g/dL (12.0-16.0); pH, Arterial 7.34 (7.35-7.45)
[2020-12-31 18:14] LABS: O2 Tension (PaO2), arterial 47.9 mmHg (> 60.0)
[2020-12-31 18:15] LABS: ALV-art Gradient 206.445 mmHg (0-20); Puncture Site LRA
[2020-12-31] MEDS ORDERED: methylPREDNISolone Sod Succ/PF 125 MG/2 ML VIAL IVP SCH (18:15)
[2020-12-31] MEDS ORDERED: ALPRAZolam 0.25 MG TAB PO PRN (18:22)
[2020-12-31 18:53] LABS: ALT (SGPT) Less than 7 U/L (8-55); AST (SGOT) 19 U/L (5-34); Albumin 4.3 g/dL (3.4-4.8); Alkaline Phosphatase 86 U/L (40-110); Anion Gap 16 mmol/L (10-20); BUN (Urea Nitrogen) 13 mg/dL (9.8-20.1); Bilirubin, Total 0.5 mg/dL (0.2-1.2); Calc. Creatinine Clearance 29 mL/min (70-130); Calcium 9.6 mg/dL (7.8-10.44); Carbon Dioxide 22 mmol/L (23-31); Chloride 105 mmol/L (98-107); Globulin 3.4 g/dL (2.4-3.5); Glucose 192 mg/dL (83-110); Potassium 3.9 mmol/L (3.5-5.1); Protein, Total 7.7 g/dL (5.8-8.1); Sodium 139 mmol/L (136-145)
[2020-12-31 19:01] LABS: Troponin I 0.455 ng/mL (< 0.028)
[2020-12-31] MEDS: Mometasone 200 MCG/Formoterol 5 MCG 120 PUFF INHALER INH SCH (19:08)
[2020-12-31] MEDS: guaiFENesin ER 600 MG TAB PO SCH (20:36)
[2020-12-31] MEDS: Carvedilol 3.125 MG TAB PO SCH (20:36)
[2020-12-31] MEDS: Benzonatate 100 MG CAP PO SCH (20:36)
[2020-12-31] MEDS: Atorvastatin Calcium 10 MG TAB PO SCH (20:36)
[2020-12-31] MEDS: HYDROcodone/Acetaminophen 5/325 mg Tablet PO PRN (20:40)
[2020-12-31] MEDS ORDERED: Famotidine 20 MG TAB PO SCH (21:00)
[2020-12-31] MEDS ORDERED: Enoxaparin Sodium 60 MG/0.6 ML SYRINGE SC SCH (21:00)
[2020-12-31] MEDS: methylPREDNISolone Sod Succ 40 MG VIAL IVP SCH (22:32)
[2021-01-01 04:02] LABS: #Lymphocytes 0.6 thou/uL (1.20-3.40); #Monocytes 0.1 thou/uL (0.11-0.59); #Neutrophils 6.3 thou/uL (1.40-6.50); %Eosinophils 0.1 % (0.0-10.0); %Lymphocytes 8.3 % (21.0-51.0); %Monocytes 1.2 % (0.0-10.0); %Neutrophils 90.4 % (42.0-75.0); Hemoglobin 14.6 g/dL (12.0-16.0); Mean Corpuscular HGB CONC 33.1 g/dL (32.0-36.0); Mean Corpuscular Hemoglobin 34.1 pg (27.0-31.0); Mean Platelet Volume 7.9 fL (7.4-10.4); Platelet Count 235 thou/uL (130-400); RBC Distribution Width 12.2 % (11.5-14.5); Red Blood Cell (RBC) Count 4.29 mill/uL (4.20-5.40)
[2021-01-01 04:23] LABS: ALT (SGPT) Less than 7 U/L (8-55); AST (SGOT) 13 U/L (5-34); Albumin 3.7 g/dL (3.4-4.8); Alkaline Phosphatase 69 U/L (40-110); Anion Gap 15 mmol/L (10-20); BUN (Urea Nitrogen) 14 mg/dL (9.8-20.1); Bilirubin, Total 0.7 mg/dL (0.2-1.2); Calc. Creatinine Clearance 30 mL/min (70-130); Carbon Dioxide 25 mmol/L (23-31); Chloride 101 mmol/L (98-107); Globulin 2.7 g/dL (2.4-3.5); Glucose 176 mg/dL (83-110); Potassium 4.2 mmol/L (3.5-5.1); Protein, Total 6.4 g/dL (5.8-8.1); Sodium 137 mmol/L (136-145)
[2021-01-01] MEDS: Levothyroxine Sodium 50 MCG TAB PO SCH (06:40)
[2021-01-01] MEDS: methylPREDNISolone Sod Succ 40 MG VIAL IVP SCH ×3 (06:40→21:58)
[2021-01-01] MEDS: Furosemide 40 MG/4 ML VIAL SLOW IVP SCH ×2 (06:40→13:04)
[2021-01-01] MEDS ORDERED: Fish Oil 1,000 MG CAP PO SCH (09:00)
[2021-01-01] MEDS: Aspirin 81 mg Enteric Coated Tablet PO SCH (09:39)
[2021-01-01] MEDS: Potassium Chloride 20 MEQ TAB PO SCH (09:39)
[2021-01-01] MEDS: Carvedilol 3.125 MG TAB PO SCH (09:40)
[2021-01-01] MEDS: Benzonatate 100 MG CAP PO SCH ×3 (09:40→19:51)
[2021-01-01] MEDS: guaiFENesin ER 600 MG TAB PO SCH ×2 (09:40→19:51)
[2021-01-01] MEDS: Cholecalciferol 1,000 UNITS (25 MCG) TAB PO SCH (09:40)
[2021-01-01] MEDS: Citrucel 500 MG TAB PO SCH (09:54)
[2021-01-01] MEDS: Fluticasone Propionate Nasal Spray 16 gm Bottle NASAL SCH (12:47)
[2021-01-01] MEDS: Mometasone 200 MCG/Formoterol 5 MCG 120 PUFF INHALER INH SCH ×2 (14:32→18:51)
[2021-01-01] MEDS ORDERED: Digoxin 0.25 MG TAB PO SCH ×2 (19:15→22:00)
[2021-01-01] MEDS ORDERED: Spironolactone 25 MG TAB PO SCH (19:15)
[2021-01-01] MEDS: Atorvastatin Calcium 10 MG TAB PO SCH (19:50)
[2021-01-01] MEDS: Famotidine 20 MG TAB PO SCH (19:51)
[2021-01-01] MEDS: Spironolactone 25 MG TAB PO SCH (19:55)
[2021-01-01] MEDS ORDERED: Enoxaparin Sodium 60 MG/0.6 ML SYRINGE SC SCH (21:00)
[2021-01-01] MEDS: HYDROcodone/Acetaminophen 5/325 mg Tablet PO PRN (22:15)
[2021-01-02] MEDS: Levothyroxine Sodium 50 MCG TAB PO SCH (06:23)
[2021-01-02] MEDS: Furosemide 40 MG/4 ML VIAL SLOW IVP SCH ×2 (06:24→14:48)
[2021-01-02] MEDS: methylPREDNISolone Sod Succ 40 MG VIAL IVP SCH ×2 (06:24→14:48)
[2021-01-02] MEDS: Mometasone 200 MCG/Formoterol 5 MCG 120 PUFF INHALER INH SCH ×2 (07:25→19:07)
[2021-01-02] MEDS: guaiFENesin ER 600 MG TAB PO SCH ×2 (09:27→20:57)
[2021-01-02] MEDS: Cholecalciferol 1,000 UNITS (25 MCG) TAB PO SCH (09:29)
[2021-01-02] MEDS: Potassium Chloride 20 MEQ TAB PO SCH (09:29)
[2021-01-02] MEDS: Benzonatate 100 MG CAP PO SCH ×3 (09:30→20:57)
[2021-01-02] MEDS: Citrucel 500 MG TAB PO SCH (09:30)
[2021-01-02] MEDS: Aspirin 81 mg Enteric Coated Tablet PO SCH (09:30)
[2021-01-02] MEDS: Digoxin 0.25 MG TAB PO SCH (09:30)
[2021-01-02] MEDS: Fluticasone Propionate Nasal Spray 16 gm Bottle NASAL SCH (09:31)
[2021-01-02] MEDS ORDERED: Spironolactone 25 MG TAB PO SCH (17:00)
[2021-01-02] MEDS: Famotidine 20 MG TAB PO SCH (20:57)
[2021-01-02] MEDS: Enoxaparin Sodium 60 MG/0.6 ML SYRINGE SC SCH (20:57)
[2021-01-02] MEDS: Atorvastatin Calcium 10 MG TAB PO SCH (20:57)
[2021-01-03 04:35] LABS: Platelet Count 316 thou/uL (130-400)
[2021-01-03 04:58] LABS: Anion Gap 18 mmol/L (10-20); BUN (Urea Nitrogen) 33 mg/dL (9.8-20.1); Calc. Creatinine Clearance 21 mL/min (70-130); Calcium 9.7 mg/dL (7.8-10.44); Carbon Dioxide 28 mmol/L (23-31); Chloride 96 mmol/L (98-107); Glucose 184 mg/dL (83-110); Potassium 3.7 mmol/L (3.5-5.1); Sodium 138 mmol/L (136-145)
[2021-01-03] MEDS: Mometasone 200 MCG/Formoterol 5 MCG 120 PUFF INHALER INH SCH ×2 (06:59→18:43)
[2021-01-03] MEDS: Levothyroxine Sodium 50 MCG TAB PO SCH (07:16)
[2021-01-03] MEDS: Furosemide 40 MG/4 ML VIAL SLOW IVP SCH (07:16)
[2021-01-03] MEDS: Enoxaparin Sodium 60 MG/0.6 ML SYRINGE SC SCH (09:07)
[2021-01-03] MEDS: Potassium Chloride 20 MEQ TAB PO SCH (09:07)
[2021-01-03] MEDS: predniSONE 20 MG TAB PO SCH (09:07)
[2021-01-03] MEDS: Benzonatate 100 MG CAP PO SCH ×3 (09:08→20:41)
[2021-01-03] MEDS: Citrucel 500 MG TAB PO SCH (09:08)
[2021-01-03] MEDS: guaiFENesin ER 600 MG TAB PO SCH ×2 (09:08→20:41)
[2021-01-03] MEDS: Cholecalciferol 1,000 UNITS (25 MCG) TAB PO SCH (09:08)
[2021-01-03] MEDS: Digoxin 0.25 MG TAB PO SCH (09:08)
[2021-01-03] MEDS: Aspirin 81 mg Enteric Coated Tablet PO SCH (09:08)
[2021-01-03] MEDS: Spironolactone 25 MG TAB PO SCH (09:08)
[2021-01-03] MEDS: Fluticasone Propionate Nasal Spray 16 gm Bottle NASAL SCH (09:22)
[2021-01-03] MEDS ORDERED: Communication Order-Pharmacy FS SCH (17:30)
[2021-01-03] MEDS ORDERED: Sodium Chloride 0.9% 1,000 ML IV SCH (18:00)
[2021-01-03] MEDS: diphenhydrAMINE 50 MG CAP PO SCH ×2 (19:14→23:33)
[2021-01-03] MEDS ORDERED: predniSONE 20 MG TAB PO SCH (20:00)
[2021-01-03] MEDS: Atorvastatin Calcium 10 MG TAB PO SCH (20:41)
[2021-01-04 05:19] LABS: Anion Gap 15 mmol/L (10-20); BUN (Urea Nitrogen) 42 mg/dL (9.8-20.1); Calc. Creatinine Clearance 22 mL/min (70-130); Calcium 8.5 mg/dL (7.8-10.44); Carbon Dioxide 26 mmol/L (23-31); Chloride 101 mmol/L (98-107); Glucose 182 mg/dL (83-110); Potassium 3.6 mmol/L (3.5-5.1); Sodium 138 mmol/L (136-145)
[2021-01-04] MEDS: diphenhydrAMINE 50 MG CAP PO SCH ×2 (05:42→13:21)
[2021-01-04] MEDS: Levothyroxine Sodium 50 MCG TAB PO SCH (05:42)
[2021-01-04] MEDS: Aspirin 81 mg Enteric Coated Tablet PO SCH (05:43)
[2021-01-04] MEDS: Spironolactone 25 MG TAB PO SCH (05:43)
[2021-01-04] MEDS: Digoxin 0.25 MG TAB PO SCH (05:43)
[2021-01-04] MEDS: Citrucel 500 MG TAB PO SCH (05:43)
[2021-01-04] MEDS: Potassium Chloride 20 MEQ TAB PO SCH (05:43)
[2021-01-04] MEDS: guaiFENesin ER 600 MG TAB PO SCH ×2 (05:43→20:43)
[2021-01-04] MEDS: Benzonatate 100 MG CAP PO SCH ×3 (05:43→20:43)
[2021-01-04] MEDS: predniSONE 20 MG TAB PO SCH (05:43)
[2021-01-04] MEDS: Cholecalciferol 1,000 UNITS (25 MCG) TAB PO SCH (05:43)
[2021-01-04] MEDS ORDERED: Sodium Chloride 0.9% 1,000 ML IV SCH ×2 (06:00→16:00)
[2021-01-04] MEDS: Mometasone 200 MCG/Formoterol 5 MCG 120 PUFF INHALER INH SCH ×2 (06:39→18:59)
[2021-01-04] MEDS ORDERED: Heparin 10,000 UNITS/ 10 ML VIAL ONE (07:39)
[2021-01-04] MEDS ORDERED: Lidocaine 1% (PF) 30 ML VIAL ONE (07:40)
[2021-01-04] MEDS ORDERED: Midazolam HCl 2 mg/2 ml Vial ONE (08:43)
[2021-01-04] MEDS ORDERED: Fentanyl 100 MCG/2 ML VIAL ONE (08:43)
[2021-01-04] MEDS ORDERED: Furosemide 40 MG/4 ML VIAL SLOW IVP SCH (09:00)
[2021-01-04] MEDS ORDERED: Famotidine 20 MG TAB PO SCH (09:00)
[2021-01-04] MEDS ORDERED: Bivalirudin 250 MG VIAL ONE (09:06)
[2021-01-04] MEDS ORDERED: Clopidogrel Bisulfate 300 MG TAB ONE (09:14)
[2021-01-04] MEDS ORDERED: Nitroglycerin 100MG/250ML BOT 250 ML ONE (09:17)
[2021-01-04] MEDS ORDERED: Nitroglycerin 0.4 MG TAB (25 Tab Bottle) SL PRN (09:47)
[2021-01-04] MEDS ORDERED: Morphine 4 MG/ML VIAL SLOW IVP PRN ×2 (09:47)
[2021-01-04] MEDS ORDERED: Iopamidol 370 76% 50 ML VIAL FS ONE (10:30)
[2021-01-04] MEDS ORDERED: Iopamidol 370 76% 100 ML VIAL ONE (10:30)
[2021-01-04] MEDS: Sodium Chloride 0.9% 1,000 ML IV SCH ×2 (11:04→15:31)
[2021-01-04] MEDS: Fluticasone Propionate Nasal Spray 16 gm Bottle NASAL SCH (11:04)
[2021-01-04] MEDS: Atorvastatin Calcium 10 MG TAB PO SCH (20:43)
[2021-01-04] MEDS: Famotidine 20 MG TAB PO SCH (20:43)
[2021-01-04] MEDS: Acetaminophen 325 MG TAB PO PRN (20:45)
[2021-01-05 05:08] LABS: Digoxin 1.62 ng/mL (0.8-2.0)
[2021-01-05 05:09] LABS: ALT (SGPT) 8 U/L (8-55); AST (SGOT) 20 U/L (5-34); Albumin 3.2 g/dL (3.4-4.8); Alkaline Phosphatase 46 U/L (40-110); Anion Gap 9 mmol/L (10-20); BUN (Urea Nitrogen) 26 mg/dL (9.8-20.1); Bilirubin, Total 0.7 mg/dL (0.2-1.2); Calc. Creatinine Clearance 29 mL/min (70-130); Calcium 8.5 mg/dL (7.8-10.44); Carbon Dioxide 31 mmol/L (23-31); Chloride 105 mmol/L (98-107); Globulin 2.2 g/dL (2.4-3.5); Glucose 80 mg/dL (83-110); Potassium 3.7 mmol/L (3.5-5.1); Protein, Total 5.4 g/dL (5.8-8.1); Sodium 141 mmol/L (136-145)
[2021-01-05] MEDS: Levothyroxine Sodium 50 MCG TAB PO SCH (05:27)
[2021-01-05] MEDS: Mometasone 200 MCG/Formoterol 5 MCG 120 PUFF INHALER INH SCH ×2 (07:58→18:33)
[2021-01-05] MEDS: Digoxin 0.25 MG TAB PO SCH (08:57)
[2021-01-05] MEDS: Benzonatate 100 MG CAP PO SCH ×3 (08:57→20:10)
[2021-01-05] MEDS: predniSONE 20 MG TAB PO SCH (08:58)
[2021-01-05] MEDS: Potassium Chloride 20 MEQ TAB PO SCH (08:58)
[2021-01-05] MEDS: guaiFENesin ER 600 MG TAB PO SCH ×2 (08:58→20:10)
[2021-01-05] MEDS: Clopidogrel Bisulfate 75 MG TAB PO SCH (08:58)
[2021-01-05] MEDS: Spironolactone 25 MG TAB PO SCH (08:58)
[2021-01-05] MEDS: Famotidine 20 MG TAB PO SCH (08:58)
[2021-01-05] MEDS: Citrucel 500 MG TAB PO SCH (08:58)
[2021-01-05] MEDS: Aspirin Chewable 81 MG TAB PO SCH (08:58)
[2021-01-05] MEDS: Fluticasone Propionate Nasal Spray 16 gm Bottle NASAL SCH (09:02)
[2021-01-05] MEDS ORDERED: Communication Order-Pharmacy FS SCH (09:30)
[2021-01-05] MEDS: diphenhydrAMINE 50 MG CAP PO SCH ×2 (11:38→17:31)
[2021-01-05] MEDS: Cholecalciferol 1,000 UNITS (25 MCG) TAB PO SCH (11:39)
[2021-01-05] MEDS: Carvedilol 3.125 MG TAB PO SCH (17:31)
[2021-01-05] MEDS ORDERED: predniSONE 20 MG TAB PO SCH (20:00)
[2021-01-05] MEDS: Atorvastatin Calcium 10 MG TAB PO SCH (20:10)
[2021-01-05] MEDS: Acetaminophen 325 MG TAB PO PRN (20:10)
[2021-01-06] MEDS: diphenhydrAMINE 50 MG CAP PO SCH ×3 (00:51→11:43)
[2021-01-06] MEDS: Aspirin Chewable 81 MG TAB PO SCH (05:34)
[2021-01-06] MEDS: Benzonatate 100 MG CAP PO SCH ×3 (05:34→20:50)
[2021-01-06] MEDS: Cholecalciferol 1,000 UNITS (25 MCG) TAB PO SCH (05:34)
[2021-01-06] MEDS: Famotidine 20 MG TAB PO SCH (05:35)
[2021-01-06] MEDS: Digoxin 0.125 MG TAB PO SCH (05:36)
[2021-01-06] MEDS: Clopidogrel Bisulfate 75 MG TAB PO SCH (05:36)
[2021-01-06] MEDS: Potassium Chloride 20 MEQ TAB PO SCH (05:36)
[2021-01-06] MEDS: Citrucel 500 MG TAB PO SCH (05:36)
[2021-01-06] MEDS: Carvedilol 3.125 MG TAB PO SCH ×2 (05:37→17:45)
[2021-01-06] MEDS: guaiFENesin ER 600 MG TAB PO SCH ×2 (05:37→20:51)
[2021-01-06] MEDS: Levothyroxine Sodium 50 MCG TAB PO SCH (05:37)
[2021-01-06] MEDS: Spironolactone 25 MG TAB PO SCH (05:38)
[2021-01-06] MEDS ORDERED: Sodium Chloride 0.9% 1,000 ML IV SCH ×3 (06:00→17:30)
[2021-01-06] MEDS: Fluticasone Propionate Nasal Spray 16 gm Bottle NASAL SCH (06:04)
[2021-01-06] MEDS: Mometasone 200 MCG/Formoterol 5 MCG 120 PUFF INHALER INH SCH ×2 (08:03→19:08)
[2021-01-06] MEDS ORDERED: Iopamidol 370 76% 50 ML VIAL FS ONE (08:31)
[2021-01-06] MEDS ORDERED: Iopamidol 370 76% 100 ML VIAL ONE (08:31)
[2021-01-06] MEDS ORDERED: Heparin 10,000 UNITS/ 10 ML VIAL ONE (09:43)
[2021-01-06] MEDS ORDERED: Lidocaine 1% (PF) 30 ML VIAL ONE (09:43)
[2021-01-06] MEDS ORDERED: Bivalirudin 250 MG VIAL ONE (09:43)
[2021-01-06] MEDS ORDERED: Midazolam HCl 2 mg/2 ml Vial ONE (10:18)
[2021-01-06] MEDS ORDERED: Fentanyl 100 MCG/2 ML VIAL ONE (10:18)
[2021-01-06 10:37] LABS: Anion Gap 11 mmol/L (10-20); BUN (Urea Nitrogen) 23 mg/dL (9.8-20.1); Calc. Creatinine Clearance 33 mL/min (70-130); Calcium 8.8 mg/dL (7.8-10.44); Carbon Dioxide 25 mmol/L (23-31); Cardiac Risk 3.9 (Less than 4.5); Chloride 107 mmol/L (98-107); Cholesterol 141 mg/dl (< 200 Desired); Glucose 134 mg/dL (83-110); HDL Cholesterol 36 mg/dL (>60 Neg Risk); LDL Cholesterol, Calculated 86 mg/dL; Sodium 138 mmol/L (136-145); Triglycerides 97 mg/dL (Less than 150)
[2021-01-06] MEDS ORDERED: Nitroglycerin 100MG/250ML BOT 250 ML ONE (10:48)
[2021-01-06] MEDS ORDERED: predniSONE 20 MG TAB PO SCH (11:45)
[2021-01-06] MEDS ORDERED: predniSONE 20 MG TAB ONE (12:36)
[2021-01-06] MEDS: Acetaminophen 325 MG TAB PO PRN (20:50)
[2021-01-06] MEDS: Atorvastatin Calcium 20 MG TAB PO SCH (20:51)
[2021-01-07] MEDS: Levothyroxine Sodium 50 MCG TAB PO SCH (05:14)
[2021-01-07 05:20] LABS: #Lymphocytes 1.5 thou/uL (1.20-3.40); #Neutrophils 7.7 thou/uL (1.40-6.50); %Basophils 0.3 % (0.0-1.0); %Eosinophils 0.3 % (0.0-10.0); %Lymphocytes 14.9 % (21.0-51.0); %Neutrophils 74.5 % (42.0-75.0); Hemoglobin 13.1 g/dL (12.0-16.0); Mean Corpuscular Hemoglobin 33.1 pg (27.0-31.0); Mean Platelet Volume 7.7 fL (7.4-10.4); Platelet Count 253 thou/uL (130-400); Red Blood Cell (RBC) Count 3.96 mill/uL (4.20-5.40); White Blood Cell (WBC) Count 10.3 thou/uL (4.8-10.8)
[2021-01-07 05:56] LABS: ALT (SGPT) Less than 7 U/L (8-55); AST (SGOT) 14 U/L (5-34); Albumin 2.9 g/dL (3.4-4.8); Alkaline Phosphatase 47 U/L (40-110); Anion Gap 9 mmol/L (10-20); BUN (Urea Nitrogen) 21 mg/dL (9.8-20.1); Bilirubin, Total 0.5 mg/dL (0.2-1.2); Calc. Creatinine Clearance 36 mL/min (70-130); Calcium 8.3 mg/dL (7.8-10.44); Carbon Dioxide 26 mmol/L (23-31); Chloride 106 mmol/L (98-107); Globulin 1.8 g/dL (2.4-3.5); Glucose 87 mg/dL (83-110); Potassium 4.2 mmol/L (3.5-5.1); Protein, Total 4.7 g/dL (5.8-8.1); Sodium 137 mmol/L (136-145)
[2021-01-07] MEDS: Aspirin Chewable 81 MG TAB PO SCH (08:25)
[2021-01-07] MEDS: Carvedilol 3.125 MG TAB PO SCH ×2 (08:25→17:09)
[2021-01-07] MEDS: guaiFENesin ER 600 MG TAB PO SCH ×2 (08:25→19:59)
[2021-01-07] MEDS: Citrucel 500 MG TAB PO SCH (08:25)
[2021-01-07] MEDS: Spironolactone 25 MG TAB PO SCH (08:26)
[2021-01-07] MEDS: Famotidine 20 MG TAB PO SCH (08:26)
[2021-01-07] MEDS: Clopidogrel Bisulfate 75 MG TAB PO SCH (08:26)
[2021-01-07] MEDS: Benzonatate 100 MG CAP PO SCH ×3 (08:26→19:59)
[2021-01-07] MEDS: Potassium Chloride 20 MEQ TAB PO SCH (08:26)
[2021-01-07] MEDS: Digoxin 0.125 MG TAB PO SCH (08:26)
[2021-01-07] MEDS: Cholecalciferol 1,000 UNITS (25 MCG) TAB PO SCH (08:26)
[2021-01-07] MEDS: Fluticasone Propionate Nasal Spray 16 gm Bottle NASAL SCH (08:27)
[2021-01-07] MEDS: Mometasone 200 MCG/Formoterol 5 MCG 120 PUFF INHALER INH SCH ×2 (08:34→20:08)
[2021-01-07] MEDS: Atorvastatin Calcium 10 MG TAB PO SCH (20:00)
[2021-01-07] MEDS: Atorvastatin Calcium 20 MG TAB PO SCH (20:07)
[2021-01-08 04:36] LABS: Anion Gap 10 mmol/L (10-20); BUN (Urea Nitrogen) 17 mg/dL (9.8-20.1); Calc. Creatinine Clearance 38 mL/min (70-130); Calcium 8.8 mg/dL (7.8-10.44); Carbon Dioxide 28 mmol/L (23-31); Chloride 106 mmol/L (98-107); Glucose 83 mg/dL (83-110); Potassium 3.9 mmol/L (3.5-5.1); Sodium 140 mmol/L (136-145)
[2021-01-08] MEDS: Levothyroxine Sodium 50 MCG TAB PO SCH (05:31)
[2021-01-08 07:40] VITALS: BP 132/63; TEMP 98
[2021-01-08] MEDS: Mometasone 200 MCG/Formoterol 5 MCG 120 PUFF INHALER INH SCH (07:46)
[2021-01-08] MEDS ORDERED: Apixaban 2.5 MG TAB PO SCH (09:00)
[2021-01-08] MEDS ORDERED: Furosemide 20 MG TAB PO SCH (09:00)
== END 2021-01-08 09:15 | disposition home or self-care (01) | DRG 246 ==
LOC: 2NO 14:31 → IMCU/EMU 18:37 → 2NO 01-02 18:04
PROVIDERS: ADMIT Hospitalist; ATTEND Internal Medicine
PROC: 027034Z Dilation of Coronary Artery, One Artery with Drug-eluting Intraluminal Device, Percutaneous Approach (ICD-10-PCS; principal; 2021-01-04)
PROC: B2111ZZ Fluoroscopy of Multiple Coronary Arteries using Low Osmolar Contrast (ICD-10-PCS; 2021-01-04)
PROC: 027034Z Dilation of Coronary Artery, One Artery with Drug-eluting Intraluminal Device, Percutaneous Approach (ICD-10-PCS; 2021-01-06)
PROC: B2111ZZ Fluoroscopy of Multiple Coronary Arteries using Low Osmolar Contrast (ICD-10-PCS; 2021-01-06)
DX: I13.0 Hypertensive heart and chronic kidney disease with heart failure and stage 1 through stage 4 chronic kidney disease, or unspecified chronic kidney disease (principal); J96.01 Acute respiratory failure with hypoxia; I21.A1 Myocardial infarction type 2; I50.43 Acute on chronic combined systolic (congestive) and diastolic (congestive) heart failure; I48.92 Unspecified atrial flutter; J44.1 Chronic obstructive pulmonary disease with (acute) exacerbation; I48.19 Other persistent atrial fibrillation; N17.9 Acute kidney failure, unspecified; Z20.822 Contact with and (suspected) exposure to COVID-19; E78.5 Hyperlipidemia, unspecified; E03.9 Hypothyroidism, unspecified; I34.0 Nonrheumatic mitral (valve) insufficiency; N18.9 Chronic kidney disease, unspecified; I42.8 Other cardiomyopathies; I25.10 Atherosclerotic heart disease of native coronary artery without angina pectoris; I48.0 Paroxysmal atrial fibrillation; Z87.891 Personal history of nicotine dependence; Z91.041 Radiographic dye allergy status; Z91.013 Allergy to seafood; Z79.82 Long term (current) use of aspirin; Z79.890 Hormone replacement therapy; Z79.899 Other long term (current) drug therapy; Z79.51 Long term (current) use of inhaled steroids; Z79.52 Long term (current) use of systemic steroids; Z90.710 Acquired absence of both cervix and uterus; Z98.890 Other specified postprocedural states
CPT/HCPCS: 36415; 36416; 36600; 71045; 80048; 80053; 80061; 80162; 82805; 83605; 83880; 84443; 84484; 85014; 85018; 85025; 85049; 85347; 92928; 93005; 93010; 93306; 93454; 93798; 94640; 99152; 99153; C1874; C9600; J0583; J1644; J1650; J1940; J1956; J2001; J2250; J2920; J2930; J3010; J7512; J7620; Q9967

== ENCOUNTER 2021-02-10 14:26 | Emergency (ER) | payer MEDICARE, MEDICAID | END 2021-02-10 17:02 | disposition home or self-care (01) | LOC: ERS 14:26 | DX: M25.511 Pain in right shoulder (principal); Z79.899 Other long term (current) drug therapy; Z79.01 Long term (current) use of anticoagulants; Z79.82 Long term (current) use of aspirin; J44.9 Chronic obstructive pulmonary disease, unspecified; K21.9 Gastro-esophageal reflux disease without esophagitis; E03.9 Hypothyroidism, unspecified; E78.5 Hyperlipidemia, unspecified; I48.91 Unspecified atrial fibrillation; I48.92 Unspecified atrial flutter; Z87.891 Personal history of nicotine dependence; N18.30 Chronic kidney disease, stage 3 unspecified; I13.0 Hypertensive heart and chronic kidney disease with heart failure and stage 1 through stage 4 chronic kidney disease, or unspecified chronic kidney disease; I50.9 Heart failure, unspecified ==

== ENCOUNTER 2022-04-27 12:41 | Outpatient (CLI) | payer OTHER | END 2022-04-27 12:42 | disposition home or self-care (01) | LOC: BICMAMMO 12:41 | PROVIDERS: ATTEND Internal Medicine | DX: Z12.31 Encounter for screening mammogram for malignant neoplasm of breast (principal); Z13.820 Encounter for screening for osteoporosis; Z78.0 Asymptomatic menopausal state; M85.851 Other specified disorders of bone density and structure, right thigh | CPT/HCPCS: 77063; 77067; 77080 ==

== ENCOUNTER 2022-09-28 01:48 | Observation (INO) | payer OTHER, MEDICAID ==
[2022-09-28 04:14] LABS: Bilirubin Negative (Negative); Blood, Urine Negative (Negative); Clarity Clear (Clear); Glucose, Urine (Dipstick) Normal (Negative); Ketone, Urine Negative (Negative); Leukocyte Negative Leu/uL (Negative); Nitrite Negative (Negative); Protein, Urine (Dipstick) Negative (Neg-Trace); Specific Gravity, Urine 1.013 (1.002-1.036); Urobilinogen Normal mg/dL (Less than 2)
[2022-09-28] MEDS ORDERED: Levothyroxine Sodium 50 MCG TAB PO SCH (06:00)
[2022-09-28 07:42] LABS: #Lymphocytes 1.5 thou/uL (1.20-3.40); #Monocytes 0.7 thou/uL (0.11-0.59); #Neutrophils 9.3 thou/uL (1.40-6.50); %Basophils 0.1 % (0.0-1.0); %Eosinophils 0.4 % (0.0-10.0); %Lymphocytes 12.9 % (21.0-51.0); %Monocytes 6.3 % (0.0-10.0); %Neutrophils 80.2 % (42.0-75.0); Hemoglobin 14.4 g/dL (12.0-16.0); Mean Corpuscular HGB CONC 32.3 g/dL (32.0-36.0); Mean Corpuscular Hemoglobin 33.4 pg (27.0-31.0); Mean Platelet Volume 7.7 fL (7.4-10.4); Platelet Count 351 10x3/uL (130-400); RBC Distribution Width 12.5 % (11.5-14.5); Red Blood Cell (RBC) Count 4.31 mill/uL (4.20-5.40); White Blood Cell (WBC) Count 11.5 10x3/uL (4.8-10.8)
[2022-09-28 07:45] LABS: Anion Gap 14 mmol/L (10-20); BUN (Urea Nitrogen) 11 mg/dL (9.8-20.1); Calc. Creatinine Clearance 0 mL/min (70-130); Calcium 9.2 mg/dL (7.8-10.44); Carbon Dioxide 33 mmol/L (23-31); Chloride 103 mmol/L (98-107); Estimated GFR 56; Glucose 94 mg/dL (83-110); Potassium 3.2 mmol/L (3.5-5.1); Sodium 147 mmol/L (136-145)
[2022-09-28] MEDS ORDERED: Digoxin 0.125 MG TAB ONE (07:56)
[2022-09-28] MEDS ORDERED: Pantoprazole 40 MG VIAL ONE (07:56)
[2022-09-28] MEDS: Furosemide 20 MG TAB PO SCH (08:21)
[2022-09-28] MEDS: Pantoprazole 40 MG VIAL IVP SCH ×2 (08:21→20:54)
[2022-09-28] MEDS: Digoxin 0.125 MG TAB PO SCH (08:21)
[2022-09-28] MEDS: Carvedilol 3.125 MG TAB PO SCH ×2 (08:21→20:54)
[2022-09-28] MEDS: Levothyroxine Sodium 25 MCG TAB PO SCH (08:22)
[2022-09-28] MEDS: Mometasone 200 MCG/Formoterol 5 MCG 120 PUFF INHALER INH SCH ×2 (08:26→19:18)
[2022-09-28 09:01] LABS: SARS-CoV-2 NAA Rapid Test Not Detected (NotDetected)
[2022-09-28] MEDS ORDERED: Potassium Chloride 20 MEQ TAB PO SCH (09:30)
[2022-09-28 13:36] VITALS: BMI 22.6
[2022-09-28] MEDS: Fluticasone Propionate Nasal Spray 16 gm Bottle NASAL SCH (13:38)
[2022-09-28] MEDS: Cholecalciferol 1,000 UNITS (25 MCG) TAB PO SCH (13:38)
[2022-09-28] MEDS: Atorvastatin Calcium 10 MG TAB PO SCH (20:54)
[2022-09-29 05:32] LABS: #Eosinphils 0.1 thou/uL (0.0-0.7); #Lymphocytes 0.9 thou/uL (1.20-3.40); #Monocytes 0.6 thou/uL (0.11-0.59); #Neutrophils 6.6 thou/uL (1.40-6.50); %Basophils 0.3 % (0.0-1.0); %Eosinophils 1.6 % (0.0-10.0); %Lymphocytes 11.3 % (21.0-51.0); %Monocytes 6.9 % (0.0-10.0); %Neutrophils 79.9 % (42.0-75.0); Hemoglobin 12.9 g/dL (12.0-16.0); Mean Corpuscular HGB CONC 32.4 g/dL (32.0-36.0); Mean Corpuscular Hemoglobin 33.7 pg (27.0-31.0); Mean Platelet Volume 7.4 fL (7.4-10.4); Platelet Count 310 10x3/uL (130-400); RBC Distribution Width 12.6 % (11.5-14.5); Red Blood Cell (RBC) Count 3.82 mill/uL (4.20-5.40); White Blood Cell (WBC) Count 8.2 10x3/uL (4.8-10.8)
[2022-09-29] MEDS: Levothyroxine Sodium 25 MCG TAB PO SCH (05:33)
[2022-09-29] MEDS: Mometasone 200 MCG/Formoterol 5 MCG 120 PUFF INHALER INH SCH ×2 (08:09→19:00)
[2022-09-29] MEDS: Carvedilol 3.125 MG TAB PO SCH ×2 (08:23→20:32)
[2022-09-29] MEDS: Digoxin 0.125 MG TAB PO SCH (08:23)
[2022-09-29] MEDS: Furosemide 20 MG TAB PO SCH (08:23)
[2022-09-29] MEDS: Fluticasone Propionate Nasal Spray 16 gm Bottle NASAL SCH (08:23)
[2022-09-29] MEDS: Cholecalciferol 1,000 UNITS (25 MCG) TAB PO SCH (08:23)
[2022-09-29] MEDS: Pantoprazole 40 MG VIAL IVP SCH ×2 (08:23→20:32)
[2022-09-29] MEDS: Atorvastatin Calcium 10 MG TAB PO SCH (20:32)
[2022-09-29 21:25] VITALS: BP 135/77; TEMP 97.7
== END 2022-09-29 21:00 | disposition home or self-care (01) ==
LOC: ERS 01:48 → ERHOLD 04:22 → MSONC 13:25
PROVIDERS: ADMIT Internal Medicine; ATTEND Internal Medicine
DX: K92.1 Melena (principal); R19.7 Diarrhea, unspecified; I48.91 Unspecified atrial fibrillation; I13.0 Hypertensive heart and chronic kidney disease with heart failure and stage 1 through stage 4 chronic kidney disease, or unspecified chronic kidney disease; N18.30 Chronic kidney disease, stage 3 unspecified; I50.9 Heart failure, unspecified; I25.10 Atherosclerotic heart disease of native coronary artery without angina pectoris; J44.9 Chronic obstructive pulmonary disease, unspecified; E03.9 Hypothyroidism, unspecified; K21.9 Gastro-esophageal reflux disease without esophagitis; E78.5 Hyperlipidemia, unspecified; Z87.891 Personal history of nicotine dependence; Z79.01 Long term (current) use of anticoagulants; Z79.02 Long term (current) use of antithrombotics/antiplatelets; Z79.82 Long term (current) use of aspirin; Z79.890 Hormone replacement therapy; Z79.899 Other long term (current) drug therapy; Z88.2 Allergy status to sulfonamides; Z91.013 Allergy to seafood; Z91.041 Radiographic dye allergy status; Z20.822 Contact with and (suspected) exposure to COVID-19
CPT/HCPCS: 80048; 81003; 85025 ×2; 94640 ×2; 96374; 96376 ×2; 99285; G0378 ×3; U0002; 36415; C9113

== ENCOUNTER 2022-09-30 18:36 | Inpatient (IN) | payer OTHER, MEDICAID ==
[2022-09-30 23:13] LABS: #Eosinphils 0.1 thou/uL (0.0-0.7); #Monocytes 0.6 thou/uL (0.11-0.59); #Neutrophils 4.9 thou/uL (1.40-6.50); %Basophils 0.4 % (0.0-1.0); %Eosinophils 1.1 % (0.0-10.0); %Lymphocytes 14.9 % (21.0-51.0); %Monocytes 8.5 % (0.0-10.0); %Neutrophils 75.2 % (42.0-75.0); Hemoglobin 13.4 g/dL (12.0-16.0); Mean Corpuscular HGB CONC 33.8 g/dL (32.0-36.0); Mean Platelet Volume 7.3 fL (7.4-10.4); Platelet Count 337 10x3/uL (130-400); RBC Distribution Width 12.5 % (11.5-14.5); Red Blood Cell (RBC) Count 3.84 mill/uL (4.20-5.40); White Blood Cell (WBC) Count 6.5 10x3/uL (4.8-10.8)
[2022-09-30] MEDS ORDERED: Heparin 10,000 UNITS/ 10 ML VIAL SLOW IVP SCH (23:30)
[2022-09-30] MEDS ORDERED: Heparin 25,000 units/D5W 500 ML IVPB SCH (23:30)
[2022-09-30 23:33] LABS: ALT (SGPT) Less than 7 U/L (8-55); AST (SGOT) 16 U/L (5-34); Albumin 3.3 g/dL (3.4-4.8); Alkaline Phosphatase 51 U/L (40-110); Anion Gap 12 mmol/L (10-20); BUN (Urea Nitrogen) 10 mg/dL (9.8-20.1); Bilirubin, Total 0.7 mg/dL (0.2-1.2); Calc. Creatinine Clearance 0 mL/min (70-130); Calcium 8.4 mg/dL (7.8-10.44); Carbon Dioxide 31 mmol/L (23-31); Chloride 104 mmol/L (98-107); Estimated GFR 61; Glucose 122 mg/dL (83-110); Potassium 3.8 mmol/L (3.5-5.1); Protein, Total 5.3 g/dL (5.8-8.1); Sodium 143 mmol/L (136-145)
[2022-09-30 23:46] LABS: CKMB 1.9 ng/mL (0-6.6)
[2022-09-30 23:50] LABS: Prothrombin Time 13.9 sec (12.0-14.7)
[2022-09-30 23:51] LABS: PTT 28.1 sec (22.9-36.1)
[2022-10-01] MEDS ORDERED: Heparin 25,000 units/D5W 500 ML ONE (04:59)
[2022-10-01 06:11] LABS: #Eosinphils 0.1 thou/uL (0.0-0.7); #Lymphocytes 1.2 thou/uL (1.20-3.40); #Monocytes 0.7 thou/uL (0.11-0.59); #Neutrophils 5.6 thou/uL (1.40-6.50); %Basophils 0.4 % (0.0-1.0); %Eosinophils 1.5 % (0.0-10.0); %Lymphocytes 15.8 % (21.0-51.0); %Monocytes 8.8 % (0.0-10.0); %Neutrophils 73.5 % (42.0-75.0); Hemoglobin 13.8 g/dL (12.0-16.0); Mean Corpuscular HGB CONC 32.7 g/dL (32.0-36.0); Mean Corpuscular Hemoglobin 33.6 pg (27.0-31.0); Mean Platelet Volume 7.6 fL (7.4-10.4); Platelet Count 347 10x3/uL (130-400); RBC Distribution Width 12.6 % (11.5-14.5); Red Blood Cell (RBC) Count 4.12 mill/uL (4.20-5.40); White Blood Cell (WBC) Count 7.6 10x3/uL (4.8-10.8)
[2022-10-01 06:35] LABS: Anion Gap 11 mmol/L (10-20); BUN (Urea Nitrogen) 9 mg/dL (9.8-20.1); Calc. Creatinine Clearance 0 mL/min (70-130); Calcium 8.8 mg/dL (7.8-10.44); Carbon Dioxide 32 mmol/L (23-31); Chloride 103 mmol/L (98-107); Estimated GFR 62; Glucose 78 mg/dL (83-110); Potassium 3.4 mmol/L (3.5-5.1); Sodium 143 mmol/L (136-145)
[2022-10-01 06:37] LABS: PTT Greater than 250.0 sec (22.9-36.1)
[2022-10-01] MEDS ORDERED: Digoxin 0.125 MG TAB ONE (08:08)
[2022-10-01] MEDS: Levothyroxine Sodium 50 MCG TAB PO SCH (10:31)
[2022-10-01] MEDS: Mometasone/Formoterol 200/5 60 PUFF INH SCH ×2 (10:31→18:26)
[2022-10-01] MEDS: Carvedilol 3.125 MG TAB PO SCH ×2 (10:32→16:17)
[2022-10-01] MEDS: Digoxin 0.125 MG TAB PO SCH (10:32)
[2022-10-01] MEDS: Furosemide 20 MG TAB PO SCH (10:34)
[2022-10-01 14:42] VITALS: BMI 21.7
[2022-10-02 00:09] LABS: PTT 139.1 sec (22.9-36.1)
[2022-10-02] MEDS: Levothyroxine Sodium 50 MCG TAB PO SCH (05:36)
[2022-10-02] MEDS: Mometasone/Formoterol 200/5 60 PUFF INH SCH ×2 (07:32→18:47)
[2022-10-02] MEDS: Furosemide 20 MG TAB PO SCH (09:54)
[2022-10-02] MEDS: Carvedilol 3.125 MG TAB PO SCH ×2 (09:54→17:04)
[2022-10-02] MEDS: Digoxin 0.125 MG TAB PO SCH (09:54)
[2022-10-02] MEDS: Apixaban 2.5 MG TAB PO SCH (21:09)
[2022-10-03 00:01] LABS: Hemoglobin 13.2 g/dL (12.0-16.0); Platelet Count 333 10x3/uL (130-400)
[2022-10-03 04:52] LABS: #Eosinphils 0.1 thou/uL (0.0-0.7); #Lymphocytes 1.1 thou/uL (1.20-3.40); #Monocytes 0.8 thou/uL (0.11-0.59); #Neutrophils 4.4 thou/uL (1.40-6.50); %Basophils 0.1 % (0.0-1.0); %Eosinophils 2.3 % (0.0-10.0); %Lymphocytes 17.4 % (21.0-51.0); %Monocytes 12.6 % (0.0-10.0); %Neutrophils 67.7 % (42.0-75.0); Hemoglobin 12.9 g/dL (12.0-16.0); Mean Corpuscular HGB CONC 31.9 g/dL (32.0-36.0); Mean Corpuscular Hemoglobin 33.2 pg (27.0-31.0); Mean Platelet Volume 7.5 fL (7.4-10.4); Platelet Count 341 10x3/uL (130-400); RBC Distribution Width 12.9 % (11.5-14.5); Red Blood Cell (RBC) Count 3.88 mill/uL (4.20-5.40); White Blood Cell (WBC) Count 6.5 10x3/uL (4.8-10.8)
[2022-10-03 05:13] LABS: Anion Gap 11 mmol/L (10-20); BUN (Urea Nitrogen) 11 mg/dL (9.8-20.1); Calc. Creatinine Clearance 40 mL/min (70-130); Calcium 8.9 mg/dL (7.8-10.44); Carbon Dioxide 34 mmol/L (23-31); Chloride 101 mmol/L (98-107); Estimated GFR 63; Glucose 86 mg/dL (83-110); Potassium 3.1 mmol/L (3.5-5.1); Sodium 143 mmol/L (136-145)
[2022-10-03] MEDS: Levothyroxine Sodium 50 MCG TAB PO SCH (05:42)
[2022-10-03] MEDS: Mometasone/Formoterol 200/5 60 PUFF INH SCH (06:43)
[2022-10-03] MEDS ORDERED: Potassium Chloride 20 MEQ TAB PO SCH (07:45)
[2022-10-03 08:07] LABS: Magnesium 2.1 mg/dL (1.6-2.6)
[2022-10-03] MEDS: Apixaban 2.5 MG TAB PO SCH (09:17)
[2022-10-03] MEDS: Furosemide 20 MG TAB PO SCH (09:17)
[2022-10-03] MEDS: Carvedilol 3.125 MG TAB PO SCH (09:18)
[2022-10-03] MEDS: Digoxin 0.125 MG TAB PO SCH (09:18)
[2022-10-03 10:45] VITALS: BP 128/60; TEMP 97.6
== END 2022-10-03 11:45 | disposition home or self-care (01) | DRG 175 ==
LOC: ERS 18:36 → ERHOLD 23:12 → 2NO 10-01 13:37
PROVIDERS: ADMIT Family Medicine; ATTEND Internal Medicine
DX: I26.99 Other pulmonary embolism without acute cor pulmonale (principal); J96.21 Acute and chronic respiratory failure with hypoxia; I48.92 Unspecified atrial flutter; I13.0 Hypertensive heart and chronic kidney disease with heart failure and stage 1 through stage 4 chronic kidney disease, or unspecified chronic kidney disease; J44.1 Chronic obstructive pulmonary disease with (acute) exacerbation; E03.9 Hypothyroidism, unspecified; N18.30 Chronic kidney disease, stage 3 unspecified; I48.91 Unspecified atrial fibrillation; K64.4 Residual hemorrhoidal skin tags; Z87.891 Personal history of nicotine dependence; Z91.013 Allergy to seafood; Z88.2 Allergy status to sulfonamides; Z79.890 Hormone replacement therapy; Z79.899 Other long term (current) drug therapy; Z79.51 Long term (current) use of inhaled steroids; Z90.710 Acquired absence of both cervix and uterus; Z99.81 Dependence on supplemental oxygen
CPT/HCPCS: 36415; 71045; 78451; 80048; 82553; 83735; 83880; 84484; 85014; 85018; 85025; 85049; 85610; 85730; 93005; 93970; A9540; J1644

== ENCOUNTER 2022-11-09 14:09 | Emergency (ER) | payer OTHER, MEDICAID ==
[2022-11-09 16:04] LABS: #Eosinphils 0.1 thou/uL (0.0-0.7); #Monocytes 0.7 thou/uL (0.11-0.59); #Neutrophils 5.7 thou/uL (1.40-6.50); %Basophils 0.2 % (0.0-1.0); %Eosinophils 0.9 % (0.0-10.0); %Lymphocytes 13.3 % (21.0-51.0); %Monocytes 8.9 % (0.0-10.0); %Neutrophils 76.8 % (42.0-75.0); Hemoglobin 8.1 g/dL (12.0-16.0); Mean Corpuscular HGB CONC 32.1 g/dL (32.0-36.0); Mean Corpuscular Hemoglobin 32.7 pg (27.0-31.0); Mean Platelet Volume 7.8 fL (7.4-10.4); Platelet Count 299 10x3/uL (130-400); RBC Distribution Width 13.2 % (11.5-14.5); Red Blood Cell (RBC) Count 2.48 mill/uL (4.20-5.40); White Blood Cell (WBC) Count 7.5 10x3/uL (4.8-10.8)
[2022-11-09 16:32] LABS: Anion Gap 20 mmol/L (10-20); BUN (Urea Nitrogen) 13 mg/dL (9.8-20.1); Calc. Creatinine Clearance 0 mL/min (70-130); Calcium 8.8 mg/dL (7.8-10.44); Carbon Dioxide 21 mmol/L (23-31); Chloride 104 mmol/L (98-107); Estimated GFR 38; Glucose 134 mg/dL (83-110); Potassium 3.5 mmol/L (3.5-5.1); Sodium 141 mmol/L (136-145)
== END 2022-11-09 18:03 | disposition home or self-care (01) ==
LOC: ERS 14:09
DX: I13.0 Hypertensive heart and chronic kidney disease with heart failure and stage 1 through stage 4 chronic kidney disease, or unspecified chronic kidney disease (principal); I50.9 Heart failure, unspecified; N18.30 Chronic kidney disease, stage 3 unspecified; J44.9 Chronic obstructive pulmonary disease, unspecified; K21.9 Gastro-esophageal reflux disease without esophagitis; E03.9 Hypothyroidism, unspecified; E78.5 Hyperlipidemia, unspecified; Z87.891 Personal history of nicotine dependence
CPT/HCPCS: 36415; 71045; 80048; 83880; 84484; 85025

== ENCOUNTER 2022-11-14 14:07 | Inpatient (IN) | payer MEDICARE, MEDICAID ==
[2022-11-14 14:49] LABS: #Basophils 0.1 thou/uL (0.0-0.2); #Eosinphils 0.1 thou/uL (0.0-0.7); #Monocytes 0.7 thou/uL (0.11-0.59); #Neutrophils 5.5 thou/uL (1.40-6.50); %Basophils 0.9 % (0.0-1.0); %Eosinophils 1.3 % (0.0-10.0); %Lymphocytes 13.5 % (21.0-51.0); %Monocytes 8.9 % (0.0-10.0); %Neutrophils 75.5 % (42.0-75.0); Hemoglobin 6.8 g/dL (12.0-16.0); Mean Corpuscular HGB CONC 31.2 g/dL (32.0-36.0); Mean Corpuscular Volume 99.3 fl (78.0-98.0); Mean Platelet Volume 7.7 fL (7.4-10.4); Platelet Count 331 10x3/uL (130-400); RBC Distribution Width 14.3 % (11.5-14.5); Red Blood Cell (RBC) Count 2.21 mill/uL (4.20-5.40); White Blood Cell (WBC) Count 7.2 10x3/uL (4.8-10.8)
[2022-11-14 15:16] LABS: ALT (SGPT) Less than 7 U/L (8-55); AST (SGOT) 14 U/L (5-34); Albumin 3.8 g/dL (3.4-4.8); Alkaline Phosphatase 46 U/L (40-110); Anion Gap 17 mmol/L (10-20); BUN (Urea Nitrogen) 15 mg/dL (9.8-20.1); Bilirubin, Total 0.5 mg/dL (0.2-1.2); Calc. Creatinine Clearance 0 mL/min (70-130); Calcium 8.8 mg/dL (7.8-10.44); Carbon Dioxide 26 mmol/L (23-31); Chloride 103 mmol/L (98-107); Estimated GFR 36; Globulin 1.8 g/dL (2.4-3.5); Glucose 133 mg/dL (83-110); Potassium 3.5 mmol/L (3.5-5.1); Protein, Total 5.6 g/dL (5.8-8.1); Sodium 142 mmol/L (136-145)
[2022-11-14] MEDS ORDERED: Acetaminophen 325 MG TAB PO PRN ×2 (16:26→20:30)
[2022-11-14] MEDS ORDERED: Ondansetron PF 4 MG/2 ML Vial IVP PRN ×2 (16:26→20:31)
[2022-11-14] MEDS ORDERED: Lactated Ringer's 1,000 ML IV SCH (16:30)
[2022-11-14] MEDS ORDERED: Pantoprazole 40 MG VIAL ONE (16:34)
[2022-11-14] MEDS ORDERED: Furosemide 20 MG/2 ML VIAL IVP SCH (16:45)
[2022-11-14] MEDS ORDERED: Pantoprazole 80 MG, Admixture Fee 1 EACH in Sodium Chloride 0.9% 100 ML IVPB SCH (16:45)
[2022-11-14] MEDS ORDERED: Non-Formulary Item 1 EACH (Fluticasone/Salmeterol [Wixela 250-50 Inhub] 1 EACH Blst.W.Dev INH SCH (21:00)
[2022-11-14] MEDS ORDERED: Atorvastatin Calcium 40 MG TAB PO SCH (21:00)
[2022-11-14] MEDS ORDERED: Melatonin 3 MG TAB PO SCH (21:00)
[2022-11-14] MEDS ORDERED: Carvedilol 3.125 MG TAB PO SCH (21:00)
[2022-11-14] MEDS: Carvedilol 3.125 MG TAB PO SCH (21:45)
[2022-11-14] MEDS: Atorvastatin Calcium 40 MG TAB PO SCH (21:45)
[2022-11-14] MEDS: Melatonin 3 MG TAB PO SCH (21:45)
[2022-11-14 23:28] VITALS: BMI 20.9
[2022-11-15] MEDS: Pantoprazole 80 MG in Sodium Chloride 0.9% 100 ML IVPB SCH ×3 (03:28→23:37)
[2022-11-15] MEDS ORDERED: Levothyroxine Sodium 25 MCG TAB PO SCH (06:00)
[2022-11-15 06:03] LABS: Hemoglobin 7.3 g/dL (12.0-16.0)
[2022-11-15] MEDS: Levothyroxine Sodium 25 MCG TAB PO SCH (06:36)
[2022-11-15] MEDS: Digoxin 0.125 MG TAB PO SCH (08:24)
[2022-11-15] MEDS: Loratadine 10 MG TAB PO SCH (08:24)
[2022-11-15] MEDS: Furosemide 20 MG TAB PO SCH (08:24)
[2022-11-15] MEDS: Cholecalciferol 1,000 UNITS (25 MCG) TAB PO SCH (08:24)
[2022-11-15] MEDS: Carvedilol 3.125 MG TAB PO SCH ×2 (08:24→20:14)
[2022-11-15] MEDS: Potassium Chloride 10 MEQ TAB PO SCH (08:24)
[2022-11-15] MEDS ORDERED: Potassium Chloride 10 MEQ TAB PO SCH (09:00)
[2022-11-15] MEDS ORDERED: Digoxin 0.125 MG TAB PO SCH (09:00)
[2022-11-15] MEDS ORDERED: Loratadine 10 MG TAB PO SCH (09:00)
[2022-11-15] MEDS ORDERED: Furosemide 20 MG TAB PO SCH (09:00)
[2022-11-15] MEDS ORDERED: Cholecalciferol 1,000 UNITS (25 MCG) TAB PO SCH (09:00)
[2022-11-15] MEDS ORDERED: GoLYTELY 4,000 ml Bottle PO SCH (17:00)
[2022-11-15] MEDS ORDERED: Mometasone Furoate 30 PUFF 220 MCG IH SCH (18:30)
[2022-11-15 19:35] LABS: Hemoglobin 9.1 g/dL (12.0-16.0); Platelet Count 236 10x3/uL (130-400)
[2022-11-15] MEDS: Melatonin 3 MG TAB PO SCH (20:13)
[2022-11-15] MEDS: Atorvastatin Calcium 40 MG TAB PO SCH (20:14)
[2022-11-15 23:37] LABS: Hemoglobin 9.3 g/dL (12.0-16.0)
[2022-11-16] MEDS: Mometasone Furoate 30 PUFF 220 MCG IH SCH ×2 (00:43→20:11)
[2022-11-16] MEDS: Carvedilol 3.125 MG TAB PO SCH ×2 (06:03→20:49)
[2022-11-16] MEDS: Levothyroxine Sodium 25 MCG TAB PO SCH (06:03)
[2022-11-16 07:58] LABS: #Eosinphils 0.2 thou/uL (0.0-0.7); #Monocytes 0.8 thou/uL (0.11-0.59); #Neutrophils 3.7 thou/uL (1.40-6.50); %Basophils 0.4 % (0.0-1.0); %Eosinophils 2.8 % (0.0-10.0); %Lymphocytes 17.5 % (21.0-51.0); %Monocytes 13.5 % (0.0-10.0); %Neutrophils 65.8 % (42.0-75.0); Hemoglobin 9.1 g/dL (12.0-16.0); Mean Corpuscular HGB CONC 32.9 g/dL (32.0-36.0); Mean Corpuscular Hemoglobin 31.8 pg (27.0-31.0); Mean Corpuscular Volume 96.6 fl (78.0-98.0); Mean Platelet Volume 7.8 fL (7.4-10.4); Platelet Count 245 10x3/uL (130-400); Red Blood Cell (RBC) Count 2.86 mill/uL (4.20-5.40); White Blood Cell (WBC) Count 5.6 10x3/uL (4.8-10.8)
[2022-11-16] MEDS: Digoxin 0.125 MG TAB PO SCH (08:11)
[2022-11-16] MEDS: Cholecalciferol 1,000 UNITS (25 MCG) TAB PO SCH (08:12)
[2022-11-16] MEDS: Loratadine 10 MG TAB PO SCH (08:12)
[2022-11-16] MEDS: Furosemide 20 MG TAB PO SCH (08:12)
[2022-11-16] MEDS: Potassium Chloride 10 MEQ TAB PO SCH (08:12)
[2022-11-16 08:20] LABS: Anion Gap 12 mmol/L (10-20); BUN (Urea Nitrogen) 9 mg/dL (9.8-20.1); Calc. Creatinine Clearance 33 mL/min (70-130); Carbon Dioxide 27 mmol/L (23-31); Chloride 108 mmol/L (98-107); Estimated GFR 50; Glucose 83 mg/dL (83-110); Potassium 3.3 mmol/L (3.5-5.1); Sodium 144 mmol/L (136-145)
[2022-11-16] MEDS ORDERED: Potassium Chloride 20 MEQ TAB PO SCH (08:45)
[2022-11-16] MEDS ORDERED: GoLYTELY 4,000 ml Bottle PO SCH (15:30)
[2022-11-16] MEDS: Ondansetron PF 4 MG/2 ML Vial IVP SCH ×2 (16:13→20:49)
[2022-11-16 17:00] LABS: Hemoglobin 9.3 g/dL (12.0-16.0)
[2022-11-16] MEDS: Atorvastatin Calcium 40 MG TAB PO SCH (20:49)
[2022-11-16] MEDS: Melatonin 3 MG TAB PO SCH (20:49)
[2022-11-16] MEDS: Pantoprazole 80 MG in Sodium Chloride 0.9% 100 ML IVPB SCH (22:09)
[2022-11-17] MEDS: Ondansetron PF 4 MG/2 ML Vial IVP SCH ×3 (03:13→16:05)
[2022-11-17] MEDS: Levothyroxine Sodium 25 MCG TAB PO SCH (05:58)
[2022-11-17] MEDS: Carvedilol 3.125 MG TAB PO SCH ×2 (05:58→19:55)
[2022-11-17 06:38] LABS: Mean Corpuscular HGB CONC 32.7 g/dL (32.0-36.0); Mean Corpuscular Hemoglobin 31.7 pg (27.0-31.0); Mean Platelet Volume 7.8 fL (7.4-10.4); Platelet Count 236 10x3/uL (130-400); RBC Distribution Width 15.2 % (11.5-14.5); Red Blood Cell (RBC) Count 2.84 mill/uL (4.20-5.40)
[2022-11-17 06:59] LABS: Anion Gap 11 mmol/L (10-20); BUN (Urea Nitrogen) 6 mg/dL (9.8-20.1); Calc. Creatinine Clearance 32 mL/min (70-130); Calcium 8.1 mg/dL (7.8-10.44); Carbon Dioxide 27 mmol/L (23-31); Chloride 107 mmol/L (98-107); Estimated GFR 48; Glucose 81 mg/dL (83-110); Potassium 3.7 mmol/L (3.5-5.1); Sodium 141 mmol/L (136-145)
[2022-11-17] MEDS: Pantoprazole 80 MG in Sodium Chloride 0.9% 100 ML IVPB SCH (08:19)
[2022-11-17] MEDS: Potassium Chloride 10 MEQ TAB PO SCH (08:55)
[2022-11-17] MEDS: Loratadine 10 MG TAB PO SCH (08:56)
[2022-11-17] MEDS: Cholecalciferol 1,000 UNITS (25 MCG) TAB PO SCH (08:56)
[2022-11-17] MEDS: Digoxin 0.125 MG TAB PO SCH (08:56)
[2022-11-17] MEDS ORDERED: PROPOFOL 200 MG/20 ML VIAL ONE (10:07)
[2022-11-17] MEDS ORDERED: Lidocaine 1% PF 5 ML VIAL ONE (10:07)
[2022-11-17] MEDS: Mometasone Furoate 30 PUFF 220 MCG IH SCH (19:41)
[2022-11-17] MEDS: Melatonin 3 MG TAB PO SCH (19:55)
[2022-11-17] MEDS: Atorvastatin Calcium 40 MG TAB PO SCH (19:56)
[2022-11-17] MEDS ORDERED: FLU VACC QS2022-23(65YR UP)/PF 240 MCG/0.7 ML SYRINGE IM ONE (23:45)
[2022-11-18] MEDS: Levothyroxine Sodium 25 MCG TAB PO SCH (06:08)
[2022-11-18 06:58] LABS: #Eosinphils 0.1 thou/uL (0.0-0.7); #Lymphocytes 0.9 thou/uL (1.20-3.40); #Monocytes 0.9 thou/uL (0.11-0.59); #Neutrophils 5.4 thou/uL (1.40-6.50); %Basophils 0.3 % (0.0-1.0); %Lymphocytes 12.3 % (21.0-51.0); %Monocytes 11.7 % (0.0-10.0); %Neutrophils 73.7 % (42.0-75.0); Hemoglobin 8.5 g/dL (12.0-16.0); Mean Corpuscular HGB CONC 32.4 g/dL (32.0-36.0); Mean Corpuscular Hemoglobin 31.5 pg (27.0-31.0); Mean Corpuscular Volume 97.2 fl (78.0-98.0); Mean Platelet Volume 8.1 fL (7.4-10.4); Platelet Count 230 10x3/uL (130-400); Red Blood Cell (RBC) Count 2.69 mill/uL (4.20-5.40); White Blood Cell (WBC) Count 7.4 10x3/uL (4.8-10.8)
[2022-11-18 07:20] LABS: Anion Gap 8 mmol/L (10-20); BUN (Urea Nitrogen) 7 mg/dL (9.8-20.1); Calc. Creatinine Clearance 30 mL/min (70-130); Calcium 8.5 mg/dL (7.8-10.44); Carbon Dioxide 31 mmol/L (23-31); Chloride 106 mmol/L (98-107); Estimated GFR 44; Glucose 128 mg/dL (83-110); Potassium 3.7 mmol/L (3.5-5.1); Sodium 141 mmol/L (136-145)
[2022-11-18] MEDS: Digoxin 0.125 MG TAB PO SCH (08:46)
[2022-11-18] MEDS: Carvedilol 3.125 MG TAB PO SCH (08:48)
[2022-11-18] MEDS: Potassium Chloride 10 MEQ TAB PO SCH (08:48)
[2022-11-18] MEDS: Loratadine 10 MG TAB PO SCH (08:49)
[2022-11-18] MEDS: Cholecalciferol 1,000 UNITS (25 MCG) TAB PO SCH (08:49)
[2022-11-18] MEDS: Furosemide 20 MG TAB PO SCH (08:49)
[2022-11-18 15:38] VITALS: BP 100/54; TEMP 98.2
== END 2022-11-18 15:40 | disposition home or self-care (01) | DRG 378 ==
LOC: ERS 14:07 → T4-A 16:01 → ERS 17:25
PROVIDERS: ADMIT Hospitalist; ATTEND Internal Medicine
PROC: 30233N1 Transfusion of Nonautologous Red Blood Cells into Peripheral Vein, Percutaneous Approach (ICD-10-PCS; 2022-11-14)
PROC: 0DJ08ZZ Inspection of Upper Intestinal Tract, Via Natural or Artificial Opening Endoscopic (ICD-10-PCS; principal; 2022-11-17)
PROC: 0W3P8ZZ Control Bleeding in Gastrointestinal Tract, Via Natural or Artificial Opening Endoscopic (ICD-10-PCS; 2022-11-17)
DX: K55.21 Angiodysplasia of colon with hemorrhage (principal); D62 Acute posthemorrhagic anemia; I50.22 Chronic systolic (congestive) heart failure; E87.1 Hypo-osmolality and hyponatremia; J96.11 Chronic respiratory failure with hypoxia; E78.5 Hyperlipidemia, unspecified; J44.9 Chronic obstructive pulmonary disease, unspecified; I25.10 Atherosclerotic heart disease of native coronary artery without angina pectoris; I48.0 Paroxysmal atrial fibrillation; K57.30 Diverticulosis of large intestine without perforation or abscess without bleeding; K64.8 Other hemorrhoids; K21.9 Gastro-esophageal reflux disease without esophagitis; N18.30 Chronic kidney disease, stage 3 unspecified; E03.9 Hypothyroidism, unspecified; Z20.822 Contact with and (suspected) exposure to COVID-19; E87.6 Hypokalemia; Z86.711 Personal history of pulmonary embolism; Z79.82 Long term (current) use of aspirin; Z91.013 Allergy to seafood; Z91.018 Allergy to other foods; Z90.710 Acquired absence of both cervix and uterus; Z98.890 Other specified postprocedural states; Z79.899 Other long term (current) drug therapy; Z87.891 Personal history of nicotine dependence; Z79.51 Long term (current) use of inhaled steroids; Z79.890 Hormone replacement therapy
CPT/HCPCS: 36415; 36416; 36430; 71045; 80048; 80053; 82274; 83880; 84484; 85014; 85018; 85025; 85027; 86850; 86900; 86901; 93005; 96374; C9113; J2405; J3490; P9016; U0003; U0005

== ENCOUNTER 2022-11-30 15:37 | Emergency (ER) | payer OTHER, MEDICAID ==
[2022-11-30] MEDS ORDERED: Furosemide 40 MG/4 ML VIAL ONE (18:50)
[2022-11-30] MEDS ORDERED: Aspirin Chewable 81 MG TAB ONE (18:50)
[2022-11-30 19:06] LABS: #Basophils 0.1 thou/uL (0.0-0.2); #Eosinphils 0.1 thou/uL (0.0-0.7); #Lymphocytes 1.2 thou/uL (1.20-3.40); #Monocytes 0.6 thou/uL (0.11-0.59); #Neutrophils 3.8 thou/uL (1.40-6.50); %Basophils 1.2 % (0.0-1.0); %Eosinophils 1.4 % (0.0-10.0); %Lymphocytes 20.5 % (21.0-51.0); %Monocytes 10.2 % (0.0-10.0); %Neutrophils 66.6 % (42.0-75.0); Hemoglobin 9.8 g/dL (12.0-16.0); Mean Corpuscular HGB CONC 31.2 g/dL (32.0-36.0); Mean Corpuscular Hemoglobin 29.7 pg (27.0-31.0); Mean Corpuscular Volume 95.5 fl (78.0-98.0); Mean Platelet Volume 7.9 fL (7.4-10.4); Platelet Count 463 10x3/uL (130-400); RBC Distribution Width 16.1 % (11.5-14.5); Red Blood Cell (RBC) Count 3.28 mill/uL (4.20-5.40); White Blood Cell (WBC) Count 5.7 10x3/uL (4.8-10.8)
[2022-11-30 19:12] LABS: ALT (SGPT) Less than 7 U/L (8-55); AST (SGOT) 16 U/L (5-34); Albumin 4.2 g/dL (3.4-4.8); Alkaline Phosphatase 53 U/L (40-110); Anion Gap 15 mmol/L (10-20); BUN (Urea Nitrogen) 13 mg/dL (9.8-20.1); Bilirubin, Total 0.4 mg/dL (0.2-1.2); Calc. Creatinine Clearance 0 mL/min (70-130); Calcium 9.2 mg/dL (7.8-10.44); Carbon Dioxide 26 mmol/L (23-31); Chloride 101 mmol/L (98-107); Estimated GFR 37; Globulin 2.4 g/dL (2.4-3.5); Glucose 99 mg/dL (83-110); Protein, Total 6.6 g/dL (5.8-8.1); Sodium 139 mmol/L (136-145)
== END 2022-11-30 21:42 | disposition home or self-care (01) ==
LOC: ERS 15:37
DX: I82.413 Acute embolism and thrombosis of femoral vein, bilateral (principal); I13.0 Hypertensive heart and chronic kidney disease with heart failure and stage 1 through stage 4 chronic kidney disease, or unspecified chronic kidney disease; N18.30 Chronic kidney disease, stage 3 unspecified; I50.9 Heart failure, unspecified; J44.9 Chronic obstructive pulmonary disease, unspecified; K21.9 Gastro-esophageal reflux disease without esophagitis; E03.9 Hypothyroidism, unspecified; E78.5 Hyperlipidemia, unspecified; Z87.891 Personal history of nicotine dependence
CPT/HCPCS: 36415; 71045; 80053; 83880; 84484; 85025; 93005; 93970; 94760; 96374; J1940